=== PATIENT | female | born 1975 | race Caucasian/White ===

== ENCOUNTER 2018-01-15 15:15 | Emergency (ER) | payer OTHER ==
[2018-01-15] MEDS ORDERED: PANTOPRAZOLE 40 MG INJ ONE (16:01)
[2018-01-15] MEDS ORDERED: MORPHINE 4 MG/ML SYR ONE (16:01)
[2018-01-15] MEDS ORDERED: ONDANSETRON 4 MG/2 ML VIAL ONE (16:01)
[2018-01-15] MEDS ORDERED: NA CHLORIDE 0.9% 2,000 ML ONE (16:02)
[2018-01-15 16:25] LABS: Absolute Lymphocytes (CBC) 2.2 K/uL (0.7-4.9); Absolute Monocytes 0.4 K/uL (0.1-1.3); Absolute Neutrophil 2.7 K/uL (1.8-8.0); Basophils % 1.1 % (0-1.3); Eosinophils % 3.3 % (0-4.4); Hematocrit 41.5 % (36.0-45.0); Lymphocytes % 40.3 % (15.3-44.8); MCH 30.8 pg (27.0-35.0); MCV 90.3 fL (80-100); MPV 9.9 fL (7.6-11.3); Monocytes % 6.7 % (3.3-12.3)
[2018-01-15 16:34] LABS: Protime INR 1.09
[2018-01-15 16:41] LABS: Albumin 3.7 g/dL (3.4-5.0); Bilirubin Direct 0.1 mg/dL (0-0.2); Bilirubin Total 0.5 mg/dL (0.2-1.0); Potassium 4.1 mmol/L (3.5-5.1); Protein, Total 7.4 g/dL (6.4-8.2)
[2018-01-15] MEDS ORDERED: FENTANYL CITR 100 MCG/2 ML ONE (17:03)
[2018-01-15 17:04] LABS: Urine Bacteria <20 /HPF (<20); Urine Culture Reflex Order NOT NEEDED; Urine RBC <5 /HPF (NONE SEEN)
[2018-01-15 17:05] LABS: Urine Mucus 2+ /HPF (NONE SEEN)
[2018-01-15 19:00] LABS: Urine Blood NEGATIVE (NEG); Urine Glucose NEGATIVE (NEG); Urine Protein NEGATIVE (NEG); Urine Specific Gravity 1.025 (1.005-1.030); Urine pH 5.5 (5.0-7.0)
--- NOTE | 2018-01-15 19:33 | RAD REPORT ---
EXAM DESCRIPTION: CT - Abdomen Pelvis W Contrast - 01/15/2018 6:22 pm CLINICAL HISTORY: upper abdominal pain COMPARISON: Abdomen Pelvis W Contrast dated 01/28/2017; TECHNIQUE: Computed axial tomography of the abdomen and pelvis was obtained. 100 cc Isovue-300 is ad ministered intravenously. Oral contrast was given. All CT scans are performed using dose optimization technique as appropriate and may include automated exposure control or mA/KV adjustment according to patient size. FINDINGS: A biliary stent has been placed. Biliary tree is normal caliber containing air. The liver, spleen, pancreas, adrenals and left kidney appear unremarkable. 1 millimeter nonobstructin g right renal calculus is present There is no evidence of diverticulitis. The gallbladder has been removed Hysterectomy has been performed. An adnexal mass is not seen A tiny umbilical hernia is noted IMPRESSION: 1 millimeter nonobstructing right renal calculus
[2018-01-15] MEDS ORDERED: LIDOCAINE VISCOUS 2% SOLN 15 ML UDC ONE (19:52)
[2018-01-15] MEDS ORDERED: MAGNES/ALUMIN/SIMET 30ML UCUP ONE (19:54)
--- NOTE | 2018-01-15 20:34 | ER ---
Nurse's Notes [facility] Name: Lavern Acosta Age: 42 yrs Sex: Female : 1975 Arrival Date: 01/15/2018 Time: 15:18 Bed 17 Private MD: Ziggy Daly Diagnosis: Upper abdominal pain, unspecified;Nausea Presentation: 01/15 15:20 Presenting complaint: Patient states: She had an ERCP done yesterday by dania Sanches1 shortly after she got home she started having abdominal pain. Reports she has been unable to eat or drink anything without severe pain since she got home. Reports nausea. Denies vomiting, diarrhea. Transition of care: patient was not received from another setting of care. Onset of symptoms was January 14, 2018. Risk Assessment: Do you want to hurt yourself or someone else? Patient reports no desire to harm self or others. Initial Sepsis Screen: Does the patient meet any 2 criteria? No. Patient's initial sepsis screen is negative. Does the patient have a suspected source of infection? No. Patient's initial sepsis screen is negative. Care prior to arrival: None. 15:20 Method Of Arrival: Ambulatory aj1 15:20 Acuity: YOU 3 aj1 Triage Assessment: 15:26 General: Appears in no apparent distress. uncomfortable, Behavior is calm, cooperative, aj1 appropriate for age. Pain: Complains of pain in right upper quadrant Pain currently is 2 out of 10 on a pain scale. at worst was 10 out of 10 on a pain scale. Neuro: Level of Consciousness is awake, alert, obeys commands, Oriented to person, place, time, situation. Cardiovascular: Patient's skin is warm and dry. Respiratory: Airway is patent Respiratory effort is even, unlabored, Respiratory pattern is regular, symmetrical. GI: Reports upper abdominal pain, nausea, Patient currently denies diarrhea, vomiting. 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 - Social history:: Smoking status: Patient/guardian denies using tobacco. - Ebola Screening: : Patient denies travel to an Ebola-affected area in the 21 days before illness onset. Screenin:48 Abuse screen: Denies threats or abuse. Nutritional screening: Has had N/V for 3 or more em days. Tuberculosis screening: No symptoms or risk factors identified. Fall Risk None identified. Assessment: 16:00 General: Appears in no apparent distress. uncomfortable, Behavior is calm, cooperative, em Denies fever. Pain: Complains of pain in right upper quadrant Pain currently is 2 out of 10 on a pain scale. Neuro: Level of Consciousness is awake, alert, obeys commands, Oriented to person, place, time, situation, Needleworker are. Cardiovascular: Capillary refill < 3 seconds Patient's skin is warm and dry. Respiratory: Airway is patent Respiratory effort is even, unlabored, Respiratory pattern is regular, symmetrical. GI: Abdomen is flat, Bowel sounds present X 4 quads. Abd is soft X 4 quads Abdomen is tender to palpation in right upper quadrant Reports nausea, vomiting. : No signs and/or symptoms were reported regarding the genitourinary system. EENT: No signs and/or symptoms were reported regarding the EENT system. Derm: Skin is intact, Skin is pink, warm \T\ dry. Musculoskeletal: Range of motion: intact in all extremities. 17:00 Reassessment: Patient appears in no apparent distress at this time. Patient and/or em family updated on plan of care and expected duration. Pain level reassessed. pt reports medication did not help, GUERO Kirk notified, new medication orders received. 18:06 Reassessment: Patient appears in no apparent distress at this time. Patient and/or em family updated on plan of care and expected duration. Pain level reassessed. Patient is alert, oriented x 3, equal unlabored respirations, skin warm/dry/pink. rates pain 5/10, pending CT Patient states feeling better. 18:15 Reassessment: Patient appears in no apparent distress at this time. Patient and/or em family updated on plan of care and expected duration. Pain level reassessed. pt wheeled to CT via wheelchair. 19:09 Reassessment: Patient appears in no apparent distress at this time. Patient and/or em family updated on plan of care and expected duration. Pain level reassessed. Patient is alert, oriented x 3, equal unlabored respirations, skin warm/dry/pink. Patient states feeling better. Patient states symptoms have improved. 19:13 Reassessment: Patient appears in no apparent distress at this time. Patient and/or jd3 family updated on plan of care and expected duration. Pain level reassessed. Patient is alert, oriented x 3, equal unlabored respirations, skin warm/dry/pink. Patient states feeling better. 20:24 Reassessment: Patient appears in no apparent distress at this time. Patient and/or jd3 family updated on plan of care and expected duration. Pain level reassessed. Patient is alert, oriented x 3, equal unlabored respirations, skin warm/dry/pink. pt tolerated PO challenge well. 20:55 Reassessment: Patient appears in no apparent distress at this time. Patient and/or jd3 family updated on plan of care and expected duration. Pain level reassessed. Patient is alert, oriented x 3, equal unlabored respirations, skin warm/dry/pink. Patient states feeling better. Vital Signs: 15:26 BP 131 / 92; Pulse 88; Resp 18; Temp 97.4; Pulse Ox 96% on R/A; Weight 68.04 kg (R); aj1 Height 5 ft. 2 in. (157.48 cm); Pain 2/10; 16:45 BP 118 / 70; Pulse 63; Resp 16; Pulse Ox 100% on R/A; Pain 7/10; iw 18:07 BP 116 / 91; Pulse 79; Resp 16; Pulse Ox 99% on R/A; Pain 5/10; em 19:12 BP 134 / 81; Pulse 69; Resp 17 S; Pulse Ox 100% on R/A; jd3 20:10 BP 124 / 67; Pulse 65; Resp 16 S; Pulse Ox 100% on R/A; jd3 15:26 Body Mass Index 27.44 (68.04 kg, 157.48 cm) aj1 ED Course: 15:18 Patient arrived in ED. mr 15:18 Ziggy Daly DO is Private Physician. mr 15:23 Triage completed. aj1 15:26 Arm band placed on Patient placed in an exam room. aj1 15:32 Reagan Hylton PA is PHCP. cp 15:32 Reagan Devlin MD is Attending Physician. cp 15:44 Victor M Espinosa LVN is Primary Nurse. em 16:15 Oral contrast given. vr 16:20 No provider procedures requiring assistance completed. Initial lab(s) drawn, by me, em sent to lab. Urine collected: clean catch specimen, clear. Inserted saline lock: 20 gauge in left antecubital area, using aseptic technique. Blood collected. 16:24 Patient has correct armband on for positive identification. Placed in gown. Bed in low em position. Call light in reach. Adult w/ patient. 18:22 CT Abd/Pelvis - W/Contrast In Process Unspecified. EDMS 19:02 IV discontinued, intact, bleeding controlled, No redness/swelling at site. Pressure em dressing applied. 20:32 Sid Taylor MD is Referral Physician. cp Administered Medications: 16:27 Drug: NS 0.9% 1000 ml Route: IV; Rate: 1 bolus; Site: left antecubital; em 19:00 Follow up: Response: No adverse reaction; IV Status: Completed infusion; infusion jd3 complete at 1900 at the start of medicaid service coordinator arrival. 16:28 Drug: morphine 2 mg Route: IVP; Site: left antecubital; iw 17:07 Follow up: Response: No adverse reaction em 16:29 Drug: Zofran 4 mg Route: IVP; Site: left antecubital; iw 17:08 Follow up: Response: No adverse reaction; Nausea is decreased em 16:29 Drug: ProTONIX 40 mg Route: IVP; Site: left antecubital; iw 17:08 Follow up: Response: No adverse reaction em 17:08 Drug: NS 0.9% 1000 ml Route: IV; Rate: 125 ml/hr; Site: left antecubital; em 20:55 Follow up: Response: No adverse reaction; IV Status: Completed infusion; IV Intake: jd3 500ml 17:09 Drug: fentaNYL (PF) 25 mcg Route: IVP; Site: left antecubital; iw 19:00 Follow up: Response: No adverse reaction jd3 19:53 Drug: GI Cocktail without - (Maalox Suspension 30 ml, Lidocaine Liquid 2 % 15 jd3 ml) Route: PO; 20:24 Follow up: Response: No adverse reaction jd3 Intake: 20:55 IV: 500ml; Total: 500ml. jd3 Outcome: 20:33 Discharge ordered by MD. cp 20:56 Discharged to home ambulatory. jd3 20:56 Condition: stable 20:56 Discharge instructions given to patient, Instructed on discharge instructions, follow up and referral plans. medication usage, Demonstrated understanding of instructions, follow-up care, medications, Prescriptions given X 2. 20:58 Patient left the ED. jd3 Signatures: Dispatcher [employer] Lona Grossman, RN RN aj1 Nini Perez mr Espinosa, Victor M, ICE SELLER ICE SELLER em Ashley Fleming RN RN iw Davis, Victoria vr Page, Corey, PA PA cp Davies, Jonathon RN RN jd3 Corrections: (The following items were deleted from the chart) 18:06 17:00 Reassessment: Patient appears in no apparent distress at this time. pt reports em medication did not help, GUERO Kirk notified, new medication orders received iw 18:07 18:06 Reassessment: Patient appears in no apparent distress at this time. Patient em and/or family updated on plan of care and expected duration. Pain level reassessed. Patient is alert, oriented x 3, equal unlabored respirations, skin warm/dry/pink. rates pain 5/10 Patient states feeling better. em 20:57 19:02 Condition: good em jd3 20:57 19:02 Discharged to home ambulatory, em jd3 20:57 19:02 Discharge instructions given to patient, Instructed on discharge instructions, jd3 follow up and referral plans. medication usage, Demonstrated understanding of instructions, follow-up care, medications, Prescriptions given X 1, em
--- NOTE | 2018-01-15 20:34 | EDPHYS ---
Physician Documentation [facility] Name: Lavern Acosta Age: 42 yrs Sex: Female : 1975 Arrival Date: 01/15/2018 Time: 15:18 Bed 17 Private MD: Ziggy Daly ED Physician Reagan Devlin HPI: 01/15 15:50 This 42 yrs old Female presents to ER via Ambulatory with complaints of cp Abdominal Pain. 15:50 The patient presents with abdominal pain in the upper abdomen. Onset: The cp symptoms/episode began/occurred yesterday. Associated signs and symptoms: Pertinent positives: nausea, Pertinent negatives: blood in stools, chest pain, constipation, diarrhea, fever, vomiting. Modifying factors: the symptoms are aggravated by drinking, food. 15:50 Patient reports having ERCP performed by DR Taylor yesterday. Pain started yesterday cp after returning home and worse when eating and drinking. 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 - Social history:: Smoking status: Patient/guardian denies using tobacco. - Ebola Screening: : Patient denies travel to an Ebola-affected area in the 21 days before illness onset. ROS: 16:00 Constitutional: Negative for body aches, chills, fever, poor PO intake. cp 16:00 Eyes: Negative for injury, pain, redness, and discharge. cp 16:00 ENT: Negative for drainage from ear(s), ear pain, sore throat, difficulty swallowing, difficulty handling secretions. 16:00 Cardiovascular: Negative for chest pain, edema, palpitations. 16:00 Respiratory: Negative for cough, shortness of breath, wheezing. 16:00 Abdomen/GI: Positive for abdominal pain, nausea, anorexia, Negative for vomiting, diarrhea, constipation, dysphagia, hematemesis, black/tarry stool, rectal bleeding. 16:00 Back: Negative for pain at rest, pain with movement, radiated pain. 16:00 : Negative for urinary symptoms, vaginal bleeding, vaginal discharge. 16:00 Skin: Negative for cellulitis, rash. 16:00 Neuro: Negative for altered mental status, headache, syncope, near syncope, weakness. 16:00 All other systems are negative. Exam: 16:05 Constitutional: The patient appears in no acute distress, alert, awake, cp non-diaphoretic, non-toxic, well developed, well nourished. 16:05 Head/Face: Normocephalic, atraumatic. cp 16:05 Eyes: Periorbital structures: appear normal, Pupils: equal, round, and reactive to light and accomodation, Extraocular movements: intact throughout, Conjunctiva: normal, no exudate, no injection, Sclera: no appreciated abnormality, Lids and lashes: appear normal, bilaterally. 16:05 ENT: External ear(s): are unremarkable, Nose: is normal, Mouth: Lips: moist, Oral mucosa: pink and intact, moist, Posterior pharynx: is normal, airway is patent, no erythema, no exudate. 16:05 Chest/axilla: Inspection: normal, Palpation: is normal, no crepitus, no tenderness. 16:05 Cardiovascular: Rate: normal, Rhythm: regular, Edema: is not appreciated, JVD: is not appreciated. 16:05 Respiratory: the patient does not display signs of respiratory distress, Respirations: normal, no use of accessory muscles, no retractions, no splinting, no tachypnea, labored breathing, is not present, Breath sounds: are clear throughout, no decreased breath sounds, no stridor, no wheezing. 16:05 Abdomen/GI: Inspection: abdomen appears normal, Bowel sounds: active, all quadrants, Palpation: soft, in all quadrants, moderate abdominal tenderness, in the epigastric area, right upper quadrant and left upper quadrant, rebound tenderness, is not appreciated, voluntary guarding, is elicited in the epigastric area, right upper quadrant and left upper quadrant. 16:05 Back: pain, is absent, ROM is normal. 16:05 Skin: cellulitis, is not appreciated, no rash present. 16:05 Neuro: Orientation: to person, place \T\ time. Mentation: lucid, able to follow commands, Cerebellar function: is grossly normal, Motor: moves all fours, strength is normal, Sensation: no obvious gross deficits. Vital Signs: 15:26 BP 131 / 92; Pulse 88; Resp 18; Temp 97.4; Pulse Ox 96% on R/A; Weight 68.04 kg (R); aj1 Height 5 ft. 2 in. (157.48 cm); Pain 2/10; 16:45 BP 118 / 70; Pulse 63; Resp 16; Pulse Ox 100% on R/A; Pain 7/10; iw 18:07 BP 116 / 91; Pulse 79; Resp 16; Pulse Ox 99% on R/A; Pain 5/10; em 19:12 BP 134 / 81; Pulse 69; Resp 17 S; Pulse Ox 100% on R/A; jd3 20:10 BP 124 / 67; Pulse 65; Resp 16 S; Pulse Ox 100% on R/A; jd3 15:26 Body Mass Index 27.44 (68.04 kg, 157.48 cm) aj1 MDM: 15:32 Patient medically screened. cp 20:31 Physician consultation: Kiesha WILSON, on-call for DR Taylor, to discuss results of labs and cp CT that returned WNL. Pain improved and patient tolerating po fluids. Will discharge to home and patient to f/u in clinic next week. 20:32 Data reviewed: vital signs, nurses notes, lab test result(s), radiologic studies, CT cp scan. 20:32 Response to treatment: the patient's symptoms have markedly improved after treatment, cp VSS. Nausea and pain improved. Will discharge to home for continued monitoring. Special discussion: Based on the patient's Hx, exam, and Dx evaluation, there is no indication for emergent surgery or inpatient Tx. It is understood by the patient/guardian that if the Sx's persist or worsen they need to return immediately for re-evaluation. 01/15 15:49 Order name: Amylase, Serum; Complete Time: 16:53 cp 01/15 15:49 Order name: Basic Metabolic Panel; Complete Time: 16:53 cp 01/15 16:53 Interpretation: Normal except: GFR 61. cp 01/15 15:49 Order name: CBC with Diff; Complete Time: 17:58 cp 01/15 19:07 Interpretation: Within normal limits. cp 01/15 15:49 Order name: Creatinine for Radiology; Complete Time: 16:53 cp 01/15 15:49 Order name: Hepatic Function; Complete Time: 16:53 cp 01/15 16:54 Interpretation: Normal except: AST 13; GLOB 3.7; A/G 1.0. cp 01/15 15:49 Order name: Lipase; Complete Time: 16:53 cp 01/15 16:54 Interpretation: Within normal limits: LIP 135. cp 01/15 15:49 Order name: Urine Microscopic Only; Complete Time: 17:58 cp 01/15 17:58 Interpretation: Normal except: SQEPI 5-10. cp 01/15 15:49 Order name: PT-INR; Complete Time: 16:53 cp 01/15 15:49 Order name: Ptt, Activated; Complete Time: 16:53 cp 01/15 16:07 Order name: Urine Dipstick--Ancillary (enter results); Complete Time: 19:07 eb 01/15 16:11 Order name: CT Abd/Pelvis - W/Contrast; Complete Time: 19:37 cp 01/15 15:49 Order name: IV Saline Lock; Complete Time: 16:27 cp 01/15 15:49 Order name: Labs collected and sent; Complete Time: 16:27 cp 01/15 15:49 Order name: Urine Dipstick-Ancillary (obtain specimen); Complete Time: 16:27 cp 01/15 19:38 Order name: PO challenge; Complete Time: 20:22 cp Administered Medications: 16:27 Drug: NS 0.9% 1000 ml Route: IV; Rate: 1 bolus; Site: left antecubital; em 19:00 Follow up: Response: No adverse reaction; IV Status: Completed infusion; infusion jd3 complete at 1900 at the start of caustic cresylate shift superintendent arrival. 16:28 Drug: morphine 2 mg Route: IVP; Site: left antecubital; iw 17:07 Follow up: Response: No adverse reaction em 16:29 Drug: Zofran 4 mg Route: IVP; Site: left antecubital; iw 17:08 Follow up: Response: No adverse reaction; Nausea is decreased em 16:29 Drug: ProTONIX 40 mg Route: IVP; Site: left antecubital; iw 17:08 Follow up: Response: No adverse reaction em 17:08 Drug: NS 0.9% 1000 ml Route: IV; Rate: 125 ml/hr; Site: left antecubital; em 20:55 Follow up: Response: No adverse reaction; IV Status: Completed infusion; IV Intake: jd3 500ml 17:09 Drug: fentaNYL (PF) 25 mcg Route: IVP; Site: left antecubital; iw 19:00 Follow up: Response: No adverse reaction jd3 19:53 Drug: GI Cocktail without - (Maalox Suspension 30 ml, Lidocaine Liquid 2 % 15 jd3 ml) Route: PO; 20:24 Follow up: Response: No adverse reaction jd3 Disposition: 01/15/18 20:33 Discharged to Home. Impression: Upper abdominal pain, unspecified, Nausea. - Condition is Stable. - Discharge Instructions: Abdominal Pain, Adult, Nausea, Adult. - Prescriptions for Zofran 4 mg Oral Tablet - take 1 tablet by ORAL route every 12 hours As needed; 20 tablet. Tramadol 50 mg Oral Tablet - take 1 tablet by ORAL route every 8 hours as needed. no driving while taking medication; 20 tablet. - Medication Reconciliation Form, Thank You Letter, Antibiotic Education, Prescription Opioid Use form. - Follow up: Sid Taylor MD; When: Thursday01-19-2018 in clinic; Reason: Recheck today's complaints. - Problem is new. - Symptoms have improved. Addendum: 01/19/2018 08:22 Co-signature as Attending Physician, Reagan Devlin MD I agree with the assessment and c ann plan of care. Signatures: Dispatcher [employer] Lona Grossman RN RN aj1 Reagan Devlin MD MD cha Munoz, Edgar, LEAFLET OR NEWSPAPER DELIVERER LEAFLET OR NEWSPAPER DELIVERER em Ashley Fleming, RN Reagan Slade PA PA cp Davies, Jonathon RN RN jd3 Corrections: (The following items were deleted from the chart) 01/15 20:34 20:33 01/15/2018 20:33 Discharged to Home. Impression: Upper abdominal pain, cp unspecified. Condition is Stable. Forms are Medication Reconciliation Form, Thank You Letter, Antibiotic Education, Prescription Opioid Use. Follow up: Colleenjuan j Taylor; When: Thursday01-19-2018 in clinic; Reason: Recheck today's complaints. Problem is new. Symptoms have improved. cp 20:58 20:34 01/15/2018 20:33 Discharged to Home. Impression: Upper abdominal pain, jd3 unspecified; Nausea. Condition is Stable. Discharge Instructions: Abdominal Pain, Adult, Nausea, Adult. Prescriptions for Tylenol-Codeine #3 300-30 mg Oral Tablet - take 2 tablets by ORAL route every 6 hours As needed; 20 tablet, Zofran 4 mg Oral Tablet - take 1 tablet by ORAL route every 12 hours As needed; 20 tablet. and Forms are Medication Reconciliation Form, Thank You Letter, Antibiotic Education, Prescription Opioid Use. Follow up: Whitleygogo Taylor; When: Thursday01-19-2018 in clinic; Reason: Recheck today's complaints. Problem is new. Symptoms have improved. cp
[2018-01-15 21:03] VITALS: TEMP 97.4
[2018-01-15 21:07] VITALS: O2SAT 100
[2018-01-15 21:08] VITALS: BP 124/67
== END 2018-01-15 20:58 | disposition home or self-care (01) ==
LOC: ER 15:15
DX: R11.0 Nausea (principal); F41.9 Anxiety disorder, unspecified; F32.9 Major depressive disorder, single episode, unspecified; Z85.3 Personal history of malignant neoplasm of breast; Z88.0 Allergy status to penicillin; Z88.1 Allergy status to other antibiotic agents; Z88.5 Allergy status to narcotic agent; Z88.6 Allergy status to analgesic agent; Z91.040 Latex allergy status; Z91.048 Other nonmedicinal substance allergy status
CPT/HCPCS: 36415; 74177; 80048; 80076; 81003; 81015; 82150; 83690; 85025; 85610; 85730; 96361; 96374; 96375; 99284; C9113; J2405; J3010; J7030; Q9967

== ENCOUNTER 2019-10-29 18:48 | Emergency (ER) | payer OTHER ==
[2019-10-29 21:48] LABS: Albumin 3.8 g/dL (3.4-5.0); Bilirubin Direct 0.1 mg/dL (0-0.2); Bilirubin Total 0.3 mg/dL (0.2-1.0); Potassium 4.5 mmol/L (3.5-5.1); Protein, Total 7.5 g/dL (6.4-8.2)
[2019-10-29 22:00] LABS: Urine Blood NEGATIVE (NEG); Urine Glucose NEGATIVE (NEG); Urine Protein NEGATIVE (NEG); Urine Specific Gravity >1.030 (1.005-1.030)
[2019-10-29] MEDS ORDERED: MORPHINE 2 MG/ML SYR ONE (22:11)
[2019-10-29] MEDS ORDERED: DICYCLOMINE HCL 10 MG CAP ONE (22:11)
[2019-10-29] MEDS ORDERED: ONDANSETRON 4 MG/2 ML VIAL ONE (22:11)
[2019-10-29] MEDS ORDERED: NA CHLORIDE 0.9% 1,000 ML ONE (22:11)
[2019-10-29 22:22] LABS: Absolute Lymphocytes (CBC) 1.7 K/uL (0.7-4.9); Basophils % 0.6 % (0-1.3); Hematocrit 38.1 % (36.0-45.0); Lymphocytes % 29.2 % (15.3-44.8); MPV 8.1 fL (7.6-11.3)
[2019-10-29] MEDS ORDERED: FENTANYL CITR 100 MCG/2 ML ONE (23:57)
--- NOTE | 2019-10-30 00:08 | ER ---
Nurse's Notes [facility] Name: Lavern Acosta Age: 43 yrs Sex: Female : 1975 Arrival Date: 10/29/2019 Time: 18:50 Bed 19 Private MD: Diagnosis: Epigastric pain Presentation: 10/28 19:08 Chief complaint: Patient states: "I have a stent in my bile duct. I am having R upper ca1 abdominal pain for over 24 hrs now. The stent is supposed to come out in July but because of everything that's going it is still in there". Reports nausea. Denies vomiting and diarrhea. Coronavirus screen: Proceed with normal triage. Patient denies a cough. Patient denies shortness of breath or difficulty breathing. Patient denies measured and/or subjective temperature greater than 100.4F prior to today's visit. Patient denies travel on a cruise ship or to a country the [facility] currently lists as an affected area. Patient denies contact with known and/or suspected case of COVID-19. Ebola Screen: Patient negative for fever greater than or equal to 101.5 degrees Fahrenheit, and additional compatible Ebola Virus Disease symptoms Patient denies exposure to infectious person. Patient denies travel to an Ebola-affected area in the 21 days before illness onset. No symptoms or risks identified at this time. Initial Sepsis Screen: Does the patient meet any 2 criteria? No. Patient's initial sepsis screen is negative. Does the patient have a suspected source of infection? No. Patient's initial sepsis screen is negative. Risk Assessment: Do you want to hurt yourself or someone else? Patient reports no desire to harm self or others. Onset of symptoms was October 29, 2019. 19:08 Method Of Arrival: Ambulatory ca1 19:08 Acuity: YOU 3 ca1 Triage Assessment: 19:13 General: Appears in no apparent distress. comfortable, Behavior is calm, cooperative, ca1 appropriate for age. Pain: Complains of pain in right upper quadrant. 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 - Social history:: Smoking status: Patient denies any tobacco usage or history of. Screenin:28 Abuse screen: Denies threats or abuse. Denies injuries from another. Nutritional mg2 screening: No deficits noted. Tuberculosis screening: No symptoms or risk factors identified. Fall Risk IV access (20 points). Assessment: 21:27 General: Appears in no apparent distress. comfortable, Behavior is calm, cooperative. mg2 Pain: Complains of pain in right upper quadrant. Neuro: Level of Consciousness is awake, alert, obeys commands, Oriented to person, place, time, situation. Cardiovascular: Capillary refill < 3 seconds Patient's skin is warm and dry. Respiratory: Airway is patent Respiratory effort is even, unlabored, Respiratory pattern is regular, symmetrical. GI: Bowel sounds present X 4 quads. Abd is soft and non tender Reports upper abdominal pain, nausea. : No signs and/or symptoms were reported regarding the genitourinary system. EENT: No signs and/or symptoms were reported regarding the EENT system. Derm: Skin is intact, is healthy with good turgor, Skin is pink, warm \\T\\ dry. normal. Musculoskeletal: Circulation, motion, and sensation intact. Capillary refill < 3 seconds. 22:30 Reassessment: Patient appears in no apparent distress at this time. Patient and/or mg2 family updated on plan of care and expected duration. Pain level reassessed. Patient is alert, oriented x 3, equal unlabored respirations, skin warm/dry/pink. 23:18 Reassessment: Patient appears in no apparent distress at this time. Patient and/or mg2 family updated on plan of care and expected duration. Pain level reassessed. Patient is alert, oriented x 3, equal unlabored respirations, skin warm/dry/pink. pain is back as verbalized by the patient. 10/29 00:50 Reassessment: Patient states feeling better. Patient states symptoms have improved. mg2 Vital Signs: 10/28 19:08 BP 129 / 91; Pulse 95; Resp 15 S; Temp 98(TE); Pulse Ox 100% on R/A; Weight 71.67 kg ca1 (R); Height 5 ft. 2 in. (157.48 cm) (R); Pain 2/10; 22:25 BP 128 / 90; Pulse 72; Resp 18; Pulse Ox 100% on R/A; mg2 23:19 BP 121 / 86; Pulse 71; Resp 18; Pulse Ox 100% on R/A; mg2 10/29 00:50 BP 128 / 77; Pulse 70; Resp 18; Temp 98.1(O); Pulse Ox 100% ; mg2 10/28 19:08 Body Mass Index 28.90 (71.67 kg, 157.48 cm) ca1 ED Course: 10/28 18:50 Patient arrived in ED. ag5 19:11 Triage completed. ca1 19:13 Arm band placed on right wrist. ca1 19:59 Jono Sandoval MD is Attending Physician. tw4 20:56 Rich Quinonez, LAURI is Primary Nurse. mg2 21:03 Reagan Hylton PA is PHCP. cp 21:27 No provider procedures requiring assistance completed. Inserted saline lock: 20 gauge mg2 in left antecubital area, using aseptic technique. Blood collected. 21:28 Patient has correct armband on for positive identification. mg2 23:18 CT Abd/Pelvis - IV Contrast Only In Process Unspecified. EDMS 10/29 00:06 Archie Mckeon MD is Referral Physician. cp 00:50 IV discontinued, intact, bleeding controlled, No redness/swelling at site. Pressure mg2 dressing applied. Administered Medications: 10/28 22:20 Drug: morphine 2 mg Route: IVP; Site: left antecubital; mg2 23:20 Follow up: Response: No adverse reaction; RASS: Alert and Calm (0) mg2 22:20 Drug: Bentyl 20 mg Route: PO; mg2 23:20 Follow up: Response: No adverse reaction mg2 22:20 Drug: Zofran (Ondansetron) 4 mg Route: IVP; Site: left antecubital; mg2 23:20 Follow up: Response: No adverse reaction mg2 22:20 Drug: NS 0.9% 1000 ml Route: IV; Rate: 1 bolus; Site: left antecubital; mg2 23:00 Follow up: Response: No adverse reaction; IV Status: Completed infusion; IV Intake: mg2 1000ml 23:55 Drug: fentaNYL (PF) 25 mcg Route: IVP; Site: left antecubital; mg2 10/29 00:50 Follow up: Response: No adverse reaction; Marked relief of symptoms; RASS: Alert and mg2 Calm (0) Intake: 10/28 23:00 IV: 1000ml; Total: 1000ml. mg2 Outcome: 10/29 00:07 Discharge ordered by . cp 00:50 Discharged to home ambulatory. mg2 00:50 Condition: stable 00:50 Discharge instructions given to patient, Instructed on discharge instructions, follow up and referral plans. medication usage, Demonstrated understanding of instructions, follow-up care, medications, Prescriptions given X 3. 00:51 Patient left the ED. mg2 Signatures: Dispatcher [employer] EDMS Reagan Hylton PA PA cp Wadley, Terrence, MD MD tw4 Rich Quinonez RN RN mg2 Megan Olguin RN RN ca1 Nilton Carrasquillo ag5
--- NOTE | 2019-10-30 00:08 | EDPHYS ---
Physician Documentation [facility] Name: Lavern Acosta Age: 43 yrs Sex: Female : 1975 Arrival Date: 10/29/2019 Time: 18:50 Bed 19 Private MD: ED Physician Jono Sandoval HPI: 10/28 21:10 This 43 yrs old Female presents to ER via Ambulatory with complaints of cp Abdominal Pain. 21:10 The patient presents with abdominal pain in the epigastric area. Onset: The cp symptoms/episode began/occurred yesterday. The symptoms do not radiate. Associated signs and symptoms: Pertinent positives: nausea, Pertinent negatives: chest pain, constipation, diarrhea, fever, vomiting. The symptoms are described as constant. The patient has experienced similar episodes in the past, multiple times, Patient reports history of pancreatic stent placement by DR Beaulieu and inability to f/u for removal of stent in July due to COVID-19 pandemic. 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 - Social history:: Smoking status: Patient denies any tobacco usage or history of. ROS: 21:15 Abdomen/GI: Positive for abdominal pain, nausea, Negative for vomiting, diarrhea, cp constipation, black/tarry stool, rectal bleeding. 21:15 Eyes: Negative for injury, pain, redness, and discharge. cp 21:15 Constitutional: Negative for body aches, fever, poor PO intake. 21:15 ENT: Negative for ear pain, sore throat, difficulty swallowing, difficulty handling secretions. 21:15 Cardiovascular: Negative for chest pain. 21:15 Respiratory: Negative for cough, shortness of breath, wheezing. 21:15 Back: Negative for pain at rest, pain with movement. 21:15 : Negative for urinary symptoms. 21:15 Neuro: Negative for headache, weakness. 21:15 All other systems are negative. Exam: 21:20 Constitutional: The patient appears in no acute distress, alert, awake, non-toxic, well cp developed, well nourished. 21:20 Head/Face: Normocephalic, atraumatic. cp 21:20 Eyes: Periorbital structures: appear normal, Conjunctiva: normal, no exudate, no injection, Sclera: no appreciated abnormality, Lids and lashes: appear normal, bilaterally. 21:20 ENT: External ear(s): are unremarkable, Nose: is normal, Mouth: Lips: moist, Oral mucosa: pink and intact, moist, Posterior pharynx: is normal, airway is patent, no erythema, no exudate. 21:20 Chest/axilla: Inspection: Palpation: is normal, no crepitus, no tenderness. 21:20 Cardiovascular: Rate: normal, Rhythm: regular. 21:20 Respiratory: the patient does not display signs of respiratory distress, Respirations: normal, no use of accessory muscles, no retractions, labored breathing, is not present. 21:20 Abdomen/GI: Inspection: abdomen appears normal, Bowel sounds: active, all quadrants, Palpation: soft, in all quadrants, mild abdominal tenderness, in the epigastric area, voluntary guarding, is not appreciated, involuntary guarding, is not appreciated. 21:20 Back: CVA tenderness, is absent. Vital Signs: 19:08 BP 129 / 91; Pulse 95; Resp 15 S; Temp 98(TE); Pulse Ox 100% on R/A; Weight 71.67 kg ca1 (R); Height 5 ft. 2 in. (157.48 cm) (R); Pain 2/10; 22:25 BP 128 / 90; Pulse 72; Resp 18; Pulse Ox 100% on R/A; mg2 23:19 BP 121 / 86; Pulse 71; Resp 18; Pulse Ox 100% on R/A; mg2 10/29 00:50 BP 128 / 77; Pulse 70; Resp 18; Temp 98.1(O); Pulse Ox 100% ; mg2 10/28 19:08 Body Mass Index 28.90 (71.67 kg, 157.48 cm) ca1 MDM: 10/28 21:10 Patient medically screened. cp 22:00 Differential diagnosis: gastritis, non-specific abd pain, pancreatitis, Pyelonephritis, cp Ureterolithiasis, urinary tract infection, choledocholithiasis. 10/29 00:05 Data reviewed: vital signs, nurses notes, lab test result(s), radiologic studies, CT cp scan, and as a result, I will discharge patient. 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 00:06 Response to treatment: the patient's symptoms have markedly improved after treatment, cp and as a result, I will discharge patient. Special discussion: Based on the patient's Hx, exam, and Dx evaluation, there is no indication for emergent surgery or inpatient Tx. It is understood by the patient/guardian that if the Sx's persist or worsen they need to return immediately for re-evaluation. 10/28 20:01 Order name: Basic Metabolic Panel; Complete Time: 21:52 [facility] 10/28 23:56 Interpretation: Normal except: CL 109; GFR 82. 10/28 20:01 Order name: CBC with Diff; Complete Time: 23:56 [facility] 10/28 23:56 Interpretation: Reviewed. 10/28 20:01 Order name: Hepatic Function; Complete Time: 21:52 [facility] 10/28 20:01 Order name: Lipase; Complete Time: 21:52 [facility] 10/28 21:56 Order name: Urine Dipstick--Ancillary (enter results); Complete Time: 23:56 [facility] 10/28 21:56 Order name: Urine --Ancillary (enter results); Complete Time: 23:56 [facility] 10/28 20:01 Order name: IV Saline Lock; Complete Time: 21:26 tw 10/28 20:01 Order name: Labs collected and sent; Complete Time: 21:26 [facility] 10/28 22:32 Order name: CT Abd/Pelvis - IV Contrast Only 10/28 21:04 Order name: Urine Dipstick-Ancillary (obtain specimen); Complete Time: 21:53 cp 10/28 21:04 Order name: Urine Test (obtain specimen); Complete Time: 21:53 cp 10/28 23:40 Order name: PO challenge; Complete Time: 00:01 cp Administered Medications: 10/28 22:20 Drug: morphine 2 mg Route: IVP; Site: left antecubital; mg2 23:20 Follow up: Response: No adverse reaction; RASS: Alert and Calm (0) mg2 22:20 Drug: Bentyl 20 mg Route: PO; mg2 23:20 Follow up: Response: No adverse reaction mg2 22:20 Drug: Zofran (Ondansetron) 4 mg Route: IVP; Site: left antecubital; mg2 23:20 Follow up: Response: No adverse reaction mg2 22:20 Drug: NS 0.9% 1000 ml Route: IV; Rate: 1 bolus; Site: left antecubital; mg2 23:00 Follow up: Response: No adverse reaction; IV Status: Completed infusion; IV Intake: mg2 1000ml 23:55 Drug: fentaNYL (PF) 25 mcg Route: IVP; Site: left antecubital; mg2 10/29 00:50 Follow up: Response: No adverse reaction; Marked relief of symptoms; RASS: Alert and mg2 Calm (0) Disposition: 10/30/19 00:07 Discharged to Home. Impression: Epigastric pain. - Condition is Stable. - Discharge Instructions: Abdominal Pain, Adult. - Prescriptions for Bentyl 20 mg Oral Tablet - take 2 tablets by ORAL route every 6 hours As needed; 30 tablet. Zofran 4 mg Oral Tablet - take 1 tablet by ORAL route every 12 hours As needed; 20 tablet. Protonix 40 mg Oral Tablet - take 1 tablet by ORAL route once daily; 30 tablet. - Medication Reconciliation Form, Thank You Letter, Antibiotic Education, Prescription Opioid Use form. - Follow up: Archie Mckeon MD; When: 1 - 2 days; Reason: Recheck today's complaints. - Problem is new. - Symptoms have improved. Addendum: 11/01/2019 07:12 Co-signature as Attending Physician, Jono Sandoval MD I agree with the assessment and t w4 plan of care. Signatures: Dispatcher [employer] EDWA Page, ReaganGUERO arriaga cp, Terrence, MD MD tw4 Rich Quinonez, RN RN mg2 Megan Olguin RN RN ca1 Corrections: (The following items were deleted from the chart) 10/29 00:51 00:07 10/30/2019 00:07 Discharged to Home. Impression: Epigastric pain. Condition is mg2 Stable. Forms are Medication Reconciliation Form, Thank You Letter, Antibiotic Education, Prescription Opioid Use. Follow up: Archie Mckeon; When: 1 - 2 days; Reason: Recheck today's complaints. Problem is new. Symptoms have improved. cp
[2019-10-30 01:15] VITALS: O2SAT 100
[2019-10-30 01:19] VITALS: BP 128/77; TEMP 98.1
--- NOTE | 2019-10-31 10:32 | RAD REPORT ---
EXAM DESCRIPTION: CT - Abdomen Pelvis W Contrast - 10/30/2019 5:40 am CLINICAL HISTORY: 43-year-old female with abdominal pain, history of breast cancer and GERD, prior h ysterectomy, appendectomy and cholecystectomy and bile duct stent TECHNIQUE: Axial CT imaging of the abdomen and pelvis was performed following the administration of intravenous contrast.. Sagittal and coronal reconstructed images were then performed. The CT stud y is performed according to ALARA (as low as reasonably achievable) or ALARA/IMAGE GENTLY, with autom atic adjustment of mA and/or kV according to patient size. Performed on: 10/29/2019 at 11:00 PM. COMPARISON: CT abdomen and pelvis performed on 01/15/2018 FINDINGS: Lung bases: The lung bases are clear. Liver: The liver is normal in size and configuration. There are a couple of tiny, stable incidental h epatic cysts. Liver attenuation is within normal limits. Spleen: The spleen is normal is size, configuration and attenuation. Gallbladder and bile duct: The gallbladder is surgically absent. There is no biliary ductal dilatat ion. A biliary stent is present along the course of the common bile duct. Pancreas: The pancreas is grossly normal in size and configuration. Adrenal Glands: The adrenal glands are normal in size and configuration. Kidneys: The kidneys are normal in size and configuration. There is no evidence of hydronephrosis. Th ere appears to be a small nonobstructing calcification in the lower pole of the right kidney. No defi nite solid or cystic renal mass lesions are identified. Stomach: The stomach is grossly normal. There is no definite hiatal hernia. Bowel: The bowel gas pattern is non specific and non obstructive. Appendix: The appendix is surgically absent. Free air: There is no evidence of free air. Free fluid: There is no evidence of free fluid. Vasculature: The aorta is normal in caliber and contour. The inferior vena cava is grossly unremarkab le. Lymphadenopathy: No pathologic lymphadenopathy is identified. Bladder: The bladder is well distended and smooth in contour. Reproductive: The uterus is surgically absent. Bones: No acute osseous abnormalities are identified. Soft tissues: There are remote postsurgical changes along the anterior abdominal wall. IMPRESSION: 1. No evidence of acute intra-abdominal or intrapelvic pathology. 2. Remote cholecystectomy, appendectomy and hysterectomy. 3. Biliary duct stent present without evidence of bile duct obstruction. 4. There appears to be a small nonobstructing calcification in the lower pole of the right kidney. 5. Several tiny incidental, grossly stable hepatic cysts. Electronically signed by: Melani Mejias DO 10/29/2019 11:34 PM CDT Due to temporary technical issues with the PACS/Fluency reporting system, reports are being signed by the in house radiologist without review as a courtesy to ensure prompt reporting. The interpreting r adiologist is fully responsible for the content of the report.
== END 2019-10-30 00:51 | disposition home or self-care (01) ==
LOC: ER 18:48
DX: R10.13 Epigastric pain (principal); F34.1 Dysthymic disorder; K21.9 Gastro-esophageal reflux disease without esophagitis; Z85.3 Personal history of malignant neoplasm of breast; Z88.0 Allergy status to penicillin; Z88.1 Allergy status to other antibiotic agents; Z88.5 Allergy status to narcotic agent; Z88.6 Allergy status to analgesic agent; Z91.040 Latex allergy status; Z91.048 Other nonmedicinal substance allergy status
CPT/HCPCS: 96361; 85025; 80048; 36415; 81025; 80076; 81003; 83690; 74177; 96375; 96374; 99284; Q9967; J3010; J2270; J7030; J2405

== ENCOUNTER 2020-10-14 07:29 | Emergency (ER) | payer OTHER ==
--- NOTE | 2020-10-14 07:59 | ER ---
Nurse's Notes [facility] Name: Lavern Acosta Age: 44 yrs Sex: Female : 1975 Arrival Date: 10/14/2020 Time: 07:33 Bed 19 Private MD: Diagnosis: Pain in right shoulder Presentation: 10/14 07:42 Chief complaint: Right shoulder pain x 5 days. Denies injury. Coronavirus screen: At iw this time, the client does not indicate any symptoms associated with coronavirus-19. Ebola Screen: No symptoms or risks identified at this time. Initial Sepsis Screen: Does the patient meet any 2 criteria? No. Patient's initial sepsis screen is negative. Does the patient have a suspected source of infection? No. Patient's initial sepsis screen is negative. Risk Assessment: Do you want to hurt yourself or someone else? Patient reports no desire to harm self or others. Onset of symptoms was October 09, 2020. 07:42 Method Of Arrival: Ambulatory iw 07:42 Acuity: YOU 4 iw Historical: - Allergies: 07:44 Aspirin; iw 07:44 Codeine; iw 07:44 Ibuprofen; iw 07:44 Keflex; iw 07:44 Latex, Natural Rubber; iw 07:44 Levaquin; iw 07:44 PENICILLINS; iw 07:44 Amoxicillin; iw - Home Meds: 07:44 Effexor 75 mg Oral daily [Active]; pantoprazole 40 mg Oral TbEC 1 tab once daily iw [Active]; - PMHx: 07:44 Anxiety; breast cancer; Depression; GERD; iw - PSHx: 07:44 Hysterectomy; mastectomy, bilateral with right side lymph node removal; Appendectomy; iw Cholecystectomy; - Immunization history:: Adult Immunizations up to date. - Social history:: Smoking status: Patient denies any tobacco usage or history of. - Family history:: not pertinent. Screenin:45 Abuse screen: Denies threats or abuse. Nutritional screening: No deficits noted. rb3 Tuberculosis screening: No symptoms or risk factors identified. Fall Risk None identified. Assessment: 07:45 General: Appears uncomfortable, Behavior is calm, cooperative. Pain: Complains of pain rb3 in right arm and anterior aspect of right shoulder Pain currently is 9 out of 10 on a pain scale. Pain began x 5 days. Neuro: Level of Consciousness is awake, alert, obeys commands, Oriented to person, place, time, situation. Cardiovascular: Capillary refill < 3 seconds Patient's skin is warm and dry. Respiratory: Airway is patent Respiratory effort is even, unlabored, Respiratory pattern is regular, symmetrical. GI: No signs and/or symptoms were reported involving the gastrointestinal system. : No signs and/or symptoms were reported regarding the genitourinary system. Musculoskeletal: Reports pain in anterior aspect of right shoulder and right arm. 08:30 Reassessment: Discharge pending due to awaiting x-ray results. rb3 08:44 Reassessment: Patient appears in no apparent distress at this time. Patient and/or rb3 family updated on plan of care and expected duration. Pain level reassessed. Patient is alert, oriented x 3, equal unlabored respirations, skin warm/dry/pink. Vital Signs: 07:42 BP 131 / 85; Pulse 86; Resp 16; Temp 97.3; Pulse Ox 98% on R/A; Weight 68.04 kg; Height iw 5 ft. 1 in. (154.94 cm); Pain 7/10; 08:30 BP 127 / 79; Pulse 84; Resp 16; Pulse Ox 99% ; rb3 07:42 Body Mass Index 28.34 (68.04 kg, 154.94 cm) iw ED Course: 07:33 Patient arrived in ED. am4 07:43 Reagan Devlin MD is Attending Physician. lianet 07:43 Triage completed. iw 07:44 Arm band placed on. iw 07:45 Patient has correct armband on for positive identification. Bed in low position. Call rb3 light in reach. Side rails up X 1. Pulse ox on. NIBP on. 07:55 Carlo Sherwood MD is Referral Physician. lianet 08:07 Shoulder Right (2 View) XRAY In Process Unspecified. EDMS 08:27 Lizz Valdez, RN is Primary Nurse. rb3 Administered Medications: 08:30 Drug: Tennyson (HYDROcodone-acetaminophen) 10 mg-325 mg 1 tabs Route: PO; rb3 09:00 Follow up: Response: No adverse reaction; Pain is decreased rb3 Outcome: 07:59 Discharge ordered by . lianet 09:15 Patient left the ED. eb Signatures: Dispatcher [employer] EDMS Reagan Devlin MD MD cha Williams, Ashley, RN RN iw Anaid Palomares Rebecca, RN RN rb3 Mihaela Adam
--- NOTE | 2020-10-14 07:59 | EDPHYS ---
Physician Documentation [facility] Name: Lavern Acosta Age: 44 yrs Sex: Female : 1975 Arrival Date: 10/14/2020 Time: 07:33 Bed 19 Private MD: ED Physician Reagan Devlin HPI: 10/14 07:51 This 44 yrs old Female presents to ER via Ambulatory with complaints of Arm lianet Pain. 07:51 The patient or guardian complains of decreased range of motion, pain, that is acute. lianet The complaints affect the anterior aspect of right shoulder and posterior aspect of right shoulder. Context: The problem was sustained at an unknown location, resulted from unknown cause. Onset: The symptoms/episode began/occurred 3 day(s) ago. Treatment prior to arrival includes: sling, splinting the affected extremity. Modifying factors: The symptoms are alleviated by remaining still, the symptoms are aggravated by movement, bending arm. Associated signs and symptoms: The patient has no apparent associated signs or symptoms. Severity of symptoms: At their worst the symptoms were moderate, in the emergency department the symptoms are unchanged. The patient has not experienced similar symptoms in the past. Historical: - Allergies: 07:44 Aspirin; iw 07:44 Codeine; iw 07:44 Ibuprofen; iw 07:44 Keflex; iw 07:44 Latex, Natural Rubber; iw 07:44 Levaquin; iw 07:44 PENICILLINS; iw 07:44 Amoxicillin; iw - Home Meds: 07:44 Effexor 75 mg Oral daily [Active]; pantoprazole 40 mg Oral TbEC 1 tab once daily iw [Active]; - PMHx: 07:44 Anxiety; breast cancer; Depression; GERD; iw - PSHx: 07:44 Hysterectomy; mastectomy, bilateral with right side lymph node removal; Appendectomy; iw Cholecystectomy; - Immunization history:: Adult Immunizations up to date. - Social history:: Smoking status: Patient denies any tobacco usage or history of. - Family history:: not pertinent. ROS: 07:51 Constitutional: Negative for fever, chills, and weight loss, Eyes: Negative for injury, lianet pain, redness, and discharge, ENT: Negative for injury, pain, and discharge, Neck: Negative for injury, pain, and swelling, Cardiovascular: Negative for chest pain, palpitations, and edema, Respiratory: Negative for shortness of breath, cough, wheezing, and pleuritic chest pain, Abdomen/GI: Negative for abdominal pain, nausea, vomiting, diarrhea, and constipation, Back: Negative for injury and pain, : Negative for injury, bleeding, discharge, and swelling, Skin: Negative for injury, rash, and discoloration, Neuro: Negative for headache, weakness, numbness, tingling, and seizure, Psych: Negative for depression, anxiety, suicide ideation, homicidal ideation, and hallucinations, Allergy/Immunology: Negative for hives, rash, and allergies, Endocrine: Negative for neck swelling, polydipsia, polyuria, polyphagia, and marked weight changes, Hematologic/Lymphatic: Negative for swollen nodes, abnormal bleeding, and unusual bruising. 07:51 MS/extremity: Positive for decreased range of motion, tenderness, of the anterior aspect of right shoulder and posterior aspect of right shoulder. Exam: 07:51 Constitutional: This is a well developed, well nourished patient who is awake, alert, lianet and in no acute distress. Head/Face: Normocephalic, atraumatic. Eyes: Pupils equal round and reactive to light, extra-ocular motions intact. Lids and lashes normal. Conjunctiva and sclera are non-icteric and not injected. Cornea within normal limits. Periorbital areas with no swelling, redness, or edema. ENT: Nares patent. No nasal discharge, no septal abnormalities noted. Tympanic membranes are normal and external auditory canals are clear. Oropharynx with no redness, swelling, or masses, exudates, or evidence of obstruction, uvula midline. Mucous membranes moist. Neck: Trachea midline, no thyromegaly or masses palpated, and no cervical lymphadenopathy. Supple, full range of motion without nuchal rigidity, or vertebral point tenderness. No Meningismus. Chest/axilla: Normal chest wall appearance and motion. Nontender with no deformity. No lesions are appreciated. Cardiovascular: Regular rate and rhythm with a normal S1 and S2. No gallops, murmurs, or rubs. Normal PMI, no JVD. No pulse deficits. Respiratory: Lungs have equal breath sounds bilaterally, clear to auscultation and percussion. No rales, rhonchi or wheezes noted. No increased work of breathing, no retractions or nasal flaring. Abdomen/GI: Soft, non-tender, with normal bowel sounds. No distension or tympany. No guarding or rebound. No evidence of tenderness throughout. Back: No spinal tenderness. No costovertebral tenderness. Full range of motion. Skin: Warm, dry with normal turgor. Normal color with no rashes, no lesions, and no evidence of cellulitis. Neuro: Awake and alert, GCS 15, oriented to person, place, time, and situation. Cranial nerves II-XII grossly intact. Motor strength 5/5 in all extremities. Sensory grossly intact. Cerebellar exam normal. Normal gait. Psych: Awake, alert, with orientation to person, place and time. Behavior, mood, and affect are within normal limits. 07:51 Musculoskeletal/extremity: ROM: limited active range of motion, limited passive range of motion, limited active range of motion due to pain, limited passive range of motion due to pain, Circulation is intact in all extremities. Sensation intact. Compartment Syndrome exam of affected extremity: is normal. DVT Exam: no swelling, pain, tenderness. Vital Signs: 07:42 BP 131 / 85; Pulse 86; Resp 16; Temp 97.3; Pulse Ox 98% on R/A; Weight 68.04 kg; Height iw 5 ft. 1 in. (154.94 cm); Pain 7/10; 08:30 BP 127 / 79; Pulse 84; Resp 16; Pulse Ox 99% ; rb3 07:42 Body Mass Index 28.34 (68.04 kg, 154.94 cm) iw MDM: 07:43 Patient medically screened. [facility] 10/14 07:51 Order name: Shoulder Right (2 View) XRAY [facility] 10/14 07:51 Order name: Sling; Complete Time: 08:48 [facility] 10/14 08:06 Order name: Ice pack; Complete Time: 08:48 [facility] Administered Medications: 08:30 Drug: [place] (HYDROcodone-acetaminophen) 10 mg-325 mg 1 tabs Route: PO; rb3 09:00 Follow up: Response: No adverse reaction; Pain is decreased rb3 Disposition: 10/14/20 07:59 Discharged to Home. Impression: Pain in right shoulder. - Condition is Stable. - Discharge Instructions: Joint Pain, Musculoskeletal Pain, Shoulder Pain, Cryotherapy, [id number], Shoulder Pain, [id number], Cryotherapy. - Prescriptions for Tramadol 50 mg Oral Tablet - take 1 tablet by ORAL route every 8 hours as needed; 20 tablet. Medrol (Severiano) 4 mg Oral Tablets, Dose Pack - take 1 tablet by ORAL route as directed - follow package instructions; 1 packet. Cyclobenzaprine 5 mg Oral Tablet - take 1 tablet by ORAL route 3 times per day As needed; 15 tablet. - Medication Reconciliation Form, Thank You Letter, Antibiotic Education, Prescription Opioid Use, Work release form form. - Follow up: Private Physician; When: 2 - 3 days; Reason: Recheck today's complaints, Continuance of care, Re-evaluation by your physician. Follow up: Carlo Sherwood MD; When: 2 - 3 days; Reason: Recheck today's complaints, Continuance of care, Re-evaluation by your physician. - Problem is new. - Symptoms have improved. Signatures: Dispatcher [employer] Reagan Avendano MD MD cha Williams, Irene, LAURI RN Anaid Hawley Rebecca, RN RN rb3 Corrections: (The following items were deleted from the chart) 09:15 07:59 10/14/2020 07:59 Discharged to Home. Impression: Pain in right shoulder. eb Condition is Stable. Forms are Medication Reconciliation Form, Thank You Letter, Antibiotic Education, Prescription Opioid Use. Follow up: Private Physician; When: 2 - 3 days; Reason: Recheck today's complaints, Continuance of care, Re-evaluation by your physician. Follow up: Carlo Sherwood; When: 2 - 3 days; Reason: Recheck today's complaints, Continuance of care, Re-evaluation by your physician. Problem is new. Symptoms have improved. lianet
[2020-10-14] MEDS ORDERED: HYDROCODONE/APAP 10/325 TAB ONE (08:51)
--- NOTE | 2020-10-14 09:18 | RAD REPORT ---
EXAM DESCRIPTION: Shoulder Right 2 View - 10/14/2020 8:07 am CLINICAL HISTORY: PAIN, no known precipitating event COMPARISON: Shoulder Right 2 View dated 02/17/2018 TECHNIQUE: Internal and external rotation views of the right shoulder were obtained. FINDINGS: There is no fracture or dislocation. No AC separation or spurring. Lateral downward tilti ng of the acromion is present. Acromial humeral joint space is slightly narrowed. No acute or suspici ous findings. IMPRESSION: Negative two-view right shoulder examination for acute finding. Concerns for rotator cuff tear or other internal derangement can be addressed with MR imaging.
[2020-10-14 09:47] VITALS: BP 131/85; TEMP 97.3; O2SAT 98
== END 2020-10-14 09:15 | disposition home or self-care (01) ==
LOC: ER 07:29
DX: M25.511 Pain in right shoulder (principal); F41.8 Other specified anxiety disorders; Z85.3 Personal history of malignant neoplasm of breast; Z88.0 Allergy status to penicillin; Z88.1 Allergy status to other antibiotic agents; Z88.6 Allergy status to analgesic agent; Z88.8 Allergy status to other drugs, medicaments and biological substances; Z90.13 Acquired absence of bilateral breasts and nipples; Z91.040 Latex allergy status; Z91.048 Other nonmedicinal substance allergy status
CPT/HCPCS: 99283

== ENCOUNTER 2023-04-02 17:25 | Emergency (ER) | payer OTHER ==
--- OUTSIDE RECORDS SUMMARY | 2023-04-02 17:37 | XMS REPORT | Continuity of Care Document ---
:1975 Author Organization [facility] t Address [address] [place] [address] Care Team Providers Name Role Phone ENEDINA PENNINGTON Primary Care Physician Unavailable CAN OHARA Attending Clinician Unavailable KEYON AU Attending Clinician Unavailable ELEANOR PIERSON Attending Clinician Unavailable LAMINE SAUNDERS Attending Clinician Unavailable LAB90 Attending Clinician Unavailable MADELINE SOUZA Attending Clinician Unavailable CATARINA GUZMAN Attending Clinician Unavailable LISA SU Attending Clinician Unavailable Radiology Attending Clinician Unavailable RADIOLOGY Attending Clinician Unavailable Catarina Guzman MD Attending Clinician [phone] MICHELLE FARRIS Admitting Clinician Unavailable Payers Payer Name Policy Type Policy Number Effective Date Expiration Date S daily CIGNA OPEN [id number] 2016 00:00:00 ACCESS/OPEN ACCESS PLUS CIGNA-CIGNA/PPO 2 [id number] 2021 00:00:00 Problems Condition Condition Condition Status Onset Resolution Last Treating Co mments Source Name Details Category Date Date Treatment Clinician Date Acute pain Acute pain Disease Active 2022-05 K elsey of left of left 0-09 Seybold shoulder shoulder 00:00: - 00 Externa l Neck pain Neck pain Disease Active 2022-05 Renato sey 0-09 Seybold 00:00: - 00 Externa l DDD DDD Disease Active 2022-05 Edita (degenerat (degenerat 0-09 Se ybold edison disc edison disc 00:00: - disease), disease), 00 Exte rna cervical cervical l Anxiety Anxiety Disease Active Edita 908 Seybold 00:00: - 00 Externa l Hypothyroi Hypothyroi Disease Active K timothy dism dism 9 Seybold 00:00: - 00 Externa l Reflux Reflux Disease Active Edita esophagiti esophagiti 01-23 Se ybold s s 00:00: - 00 Externa l Prehyperte Prehyperte Disease Active K timothy nsion nsion 413 Seybold 00:00: - 00 Externa l Duodenal Duodenal Disease Active Renatose y ulcer ulcer 413 Seybold 00:00: - 00 Externa l No known No known Disease Unive rs active active ity of problems problems [facility] Allergies, Adverse Reactions, Alerts Allergy Allergy Status Severity Reaction(s) Onset Inactive Treating Comm ents Source Name Type Date Date Clinician Aspirin Propensi Active 2021-05 Edita ty to 2-12 Seybold adverse 00:00: - reaction 00 Externa s l Latex Propensi Active Rash Univers ty to 4-19 ity of adverse 00:00: [place] reaction [facility] Levoflox Propensi Active Rash Univer s acin ty to 4-19 ity of adverse 00:00: [place] reaction 00 [facility] AMOXICIL DRUG Active Rash Univers JOHN INGREDI 4-19 ity of 00:00: [place] 00 [facility] ASPIRIN DRUG Active N/V Univers INGREDI 4-19 ity of 00:00: [place] 00 [facility] IBUPROFE DRUG Active Rash Univers N INGREDI 4-19 ity of 00:00: [place] 00 [facility] CEPHALEX DRUG Active Rash Univers IN INGREDI 419 ity of 00:00: [place] 00 [facility] LATEX DRUG Active Rash Univers INGREDI 4-19 ity of 00:00: [place] 00 [facility] LEVOFLOX DRUG Active Rash Univers ACIN INGREDI 09-03 ity of 00:00: [place] 00 [facility] Amoxicil Propensi Active Rash Univer s john ty to 09-03 ity of adverse 00:00: [place] reaction 00 [facility] Aspirin Propensi Active Nausea Univers ty to and/or 09-03 ity of adverse Vomiting 00:00: [place] reaction Medical s [facility] Ibuprofe Propensi Active Rash Univer s n ty to 09-03 ity of adverse 00:00: [place] reaction 00 [facility] Cephalex Propensi Active Rash Univer s in ty to 09-03 ity of adverse 00:00: [place] reaction [facility] s [facility] Calcium Propensi Active Nausea and Renato dawn Acetylsa ty to Vomiting 09-03 Seybol d licylate adverse 00:00: - reaction 00 Externa s l Cephalex Propensi Active Rash Edita in ty to 09-03 Seybold adverse 00:00: - reaction 00 Externa s l Latex Propensi Active Rash Edita ty to 09-03 Seybold adverse 00:00: - reaction 00 Externa s l Social History Social Habit Start Date Stop Date Quantity Comments Source Gender identity 2021-08-28 Identifies as Edita Valdez 14:05:47 female gender - External (finding) Sexual orientation 2021-08-28 Heterosexual Jenise Valdez 14:05:47 (finding) - External History of tobacco Edita Valdez use - External Exposure to Not sure Edita hussein SARS-CoV-2 (event) Alcohol intake 2023-03-11 2023-03-11 Lifetime Edita alfredo 00:00:00 00:00:00 non-drinker - External (finding) History of Social 2023-01-23 2023-01-23 Edita Valdez function 00:00:00 00:00:00 - External Sex [birth year] F Edita solano 00:00:00 00:00:00 - External Smoking Status Start Date Stop Date Source Unknown if ever smoked [facility] Smokes tobacco daily 2023-01-23 00:00:00 Edita Seybold - External Medications Ordered Filled Start Stop Current Ordering Indication Dosage Frequency Signature Comments Components Source Medication Medication Date Date Medication? Clinician (SIG) Name Name Tizanidine 2022-05 Yes [id number] 2mg QD Take 1 K elsey HCl 2 MG 0-09 tablet (2 Seybol d oral Tablet 00:00: mg total) - 00 by mouth Externa nightly as l needed for muscle spasms. Tizanidine 2022-05 Yes [id number] 2mg QD Take 1 K elsey HCl 2 MG 0-09 tablet (2 Seybol d oral Tablet 00:00: mg total) - 00 by mouth Externa nightly as l needed for muscle spasms. Tizanidine 2022- No [id number] 2mg Q.[id number] Take 1 Edita HCl 2 MG 02-10 [id number] tablet (2 Seybold oral Tablet 00:00: 00:00 3D mg total) - 00 :00 by mouth Externa every 8 l hours as needed for muscle spasms. predniSONE 2022- No [id number] 5mg Take 0.5 Edita (DELTASONE) 02-10 [id number] tablets (5 Seybold 10 MG oral 00:00: 00:00 mg total) - tablet 00 :00 by mouth 2 Externa times l daily. Venlafaxine Yes 75mg Take 75 mg Edita HCl 75 MG 01-23 by mouth Seybol d oral Tablet 15:00: daily - 12 Externa l Pantoprazol Yes [id number] 40mg Take 1 Edita e Sodium 40 8-11 tablet (40 Se ybold MG oral 00:00: mg total) - Tablet 00 by mouth Externa Delayed daily l Response hydrOXYzine Yes [id number] 10mg Q.[id number] TAKE 1 Edita HCl 10 MG 10-24 [id number] TABLET (10 Seybold oral Tablet 00:00: 3D MG TOTAL) - 00 BY MOUTH 3 Externa TIMES l DAILY NEEDED FOR ITCHING OR ANXIETY Benzonatate Yes [id number] 100mg Q.[id number] Take 1 Edita (Tessalon 2-23 [id number] capsule S eybold Perles) 100 00:00: 3D (100 mg - MG oral 00 total) by Externa Capsule mouth 3 l times daily as needed for cough Benzonatate 2022- No [id number] 100mg Q.[id number] Take 1 Edita (Tessalon 2-23 -08 [id number] capsule Seybold Perles) 100 00:00: 00:00 3D (100 mg - MG oral 00 :00 total) by Externa Capsule mouth 3 l times daily as needed for cough Pantoprazol Yes [id number] TAKE 1 Edita e Sodium 40 2-06 TABLET BY Sey bold MG oral 00:00: MOUTH - Tablet 00 EVERY DAY Externa Delayed l Response Ondansetron Yes [id number] 4mg Q.[id number] Take 1 Edita HCl 4 MG 1-20 [id number] tablet (4 Seybold oral Tablet 00:00: 3D mg total) - 00 by mouth Externa every 8 l hours as needed for nausea Ondansetron Yes [id number] 4mg Q.[id number] Take 1 Edita HCl 4 MG 1-20 [id number] tablet (4 Seybold oral Tablet 00:00: 3D mg total) - 00 by mouth Externa every 8 l hours as needed for nausea Venlafaxine Yes 75mg Take 75 mg Edita HCl 75 MG 1-17 by mouth Seybol d oral Tablet 14:10: daily - 32 Externa l Venlafaxine 0 Yes 75mg Take 75 mg Edita HCl 75 MG 1-17 by mouth Seybol d oral Tablet 14:10: daily - 32 Externa l PAXLOVID 0 2022- No [id number] Take two Edita STANDARD 1-17 - 150 mg Seybold (30) 00:00: 05:59 nirmatrelv - (300/100) 00 :00 ir (pink) Exter na Therapy tablets l Pack with one 100 mg ritonavir (white) tablet by mouth two times daily for 5 days Lansoprazol 0 Yes 30mg Take 30 mg Edita e 30 MG 1-09 by mouth Seybold oral 00:00: every 12 - Delayed 00 hours Externa Release l Capsule Pseudoeph-B 2021-05 Yes [id number] 10mL Q.25D Take 10 mL Edita romphen-DM 2-12 by mouth 4 Sey bold (Bromfed 00:00: times - DM) 00 daily as Exte rna MG/5ML oral needed l Syrup Pseudoeph-B 2021-05 Yes [id number] 10mL Q.25D Take 10 mL Edita romphen-DM 2-12 by mouth 4 Sey bold (Bromfed 00:00: times - DM) 00 daily as Exte rna MG/5ML oral needed l Syrup Pseudoeph-B 2021-05 Yes [id number] 10mL Q.25D Take 10 mL Edita romphen-DM 2-12 by mouth 4 Sey bold (Bromfed 00:00: times - DM) 00 daily as Exte rna MG/5ML oral needed l Syrup Pseudoeph-B 2021-05- No [id number] 10mL Q.25D Take 10 mL Edita romphen-DM 2-12 -08 by mouth 4 Se ybold (Bromfed 00:00: 00:00 times - DM) 00 :00 daily as Exte rna MG/5ML oral needed l Syrup Azithromyci 2021-05- No [id number] Take 2 Edita n 250 MG 2-12 12-18 tablets by Seyb old oral Tablet 00:00: 05:59 mouth on - 00 :00 day 1 then Externa 1 tablet l by mouth daily for 4 days thereafter . Levothyroxi 2021-05 Yes 50ug Take 1 Jenise ey ne Sodium 2-05 tablet (50 Seyb old 50 MCG oral 00:00: mcg total) - Tablet 00 by mouth Externa daily l Levothyroxi 2021-05 Yes 50ug Take 1 Jenise ey ne Sodium 2-05 tablet (50 Seyb old 50 MCG oral 00:00: mcg total) - Tablet 00 by mouth Externa daily l Levothyroxi 2021-05 Yes 50ug Take 1 Jenise ey ne Sodium 2-05 tablet (50 Seyb old 50 MCG oral 00:00: mcg total) - Tablet 00 by mouth Externa daily l Levothyroxi 2021-05 Yes 50ug Take 1 Jenise ey ne Sodium 2-05 tablet (50 Seyb old 50 MCG oral 00:00: mcg total) - Tablet 00 by mouth Externa daily l Levothyroxi 2021-05- No 50ug Take 1 Renato sey ne Sodium 2-05 10-09 tablet (50 Sey bold 50 MCG oral 00:00: 00:00 mcg total) - Tablet 00 :00 by mouth Externa daily l Eucrisa 2 % 2021-05 Yes APPLY THIN Edita apply 1-22 COAT TO Seybold externally 00:00: AFFECTED - Ointment 00 AREA TWICE Exter na A DAY l Eucrisa 2 % 2021-05 Yes APPLY THIN Edita apply 1-22 COAT TO Seybold externally 00:00: AFFECTED - Ointment 00 AREA TWICE Exter na A DAY l Eucrisa 2 % 2021-05 Yes APPLY THIN Edita apply 1-22 COAT TO Seybold externally 00:00: AFFECTED - Ointment 00 AREA TWICE Exter na A DAY l Triamcinolo 2021-05 Yes APPLY THIN Edita ne 1-18 COAT TO Seybold Acetonide 00:00: AFFECTED - 0.1 % apply 00 AREA TWICE Ex terna externally A DAY l Cream Triamcinolo 2021-05 Yes APPLY THIN Edita ne 1-18 COAT TO Seybold Acetonide 00:00: AFFECTED - 0.1 % apply 00 AREA TWICE Ex terna externally A DAY l Cream Triamcinolo 2021-05 Yes APPLY THIN Edita ne 1-18 COAT TO Seybold Acetonide 00:00: AFFECTED - 0.1 % apply 00 AREA TWICE Ex terna externally A DAY l Cream hydrOXYzine 2021-05 Yes [id number] 10mg Q.[id number] TAKE 1 Edita HCl 10 MG 1-17 [id number] TABLET (10 Seybold oral Tablet 00:00: 3D MG TOTAL) - 00 BY MOUTH 3 Externa TIMES l DAILY NEEDED FOR ITCHING OR ANXIETY hydrOXYzine 2021-05 Yes [id number] 10mg Q.[id number] TAKE 1 Edita HCl 10 MG 1-17 [id number] TABLET (10 Seybold oral Tablet 00:00: 3D MG TOTAL) - 00 BY MOUTH 3 Externa TIMES l DAILY NEEDED FOR ITCHING OR ANXIETY hydrOXYzine 2021-05 Yes [id number] 10mg Q.[id number] TAKE 1 Edita HCl 10 MG 1-17 [id number] TABLET (10 Seybold oral Tablet 00:00: 3D MG TOTAL) - 00 BY MOUTH 3 Externa TIMES l DAILY NEEDED FOR ITCHING OR ANXIETY Sodium 2021-05 Yes DISPENSE A Kelse y Fluoride 1-10 PEA SIZE Seybold 5000 PPM 00:00: AMOUNT ON - 1.1 % 00 TOOTHBRUSH Externa dental . BRUSH l Paste ONCE DAILY. DO NOT EAT OR DRINK FOR 30 MINUTES. Sodium 2021-05 Yes DISPENSE A Kelse y Fluoride 1-10 PEA SIZE Seybold 5000 PPM 00:00: AMOUNT ON - 1.1 % 00 TOOTHBRUSH Externa dental . BRUSH l Paste ONCE DAILY. DO NOT EAT OR DRINK FOR 30 MINUTES. Sodium 2021-05 Yes DISPENSE A Kelse y Fluoride 1-10 PEA SIZE Seybold 5000 PPM 00:00: AMOUNT ON - 1.1 % 00 TOOTHBRUSH Externa dental . BRUSH l Paste ONCE DAILY. DO NOT EAT OR DRINK FOR 30 MINUTES. Ursodiol 2021-05- No 500mg Take 500 Renato sey 500 MG oral 0-26 10-26 mg by Seybol d Tablet 08:49: 00:00 mouth - 49 :00 daily Externa l Venlafaxine 2021-05 Yes 75mg Take 75 mg Edita HCl 75 MG 0-26 by mouth Seybol d oral Tablet 08:45: daily - 14 Externa l Venlafaxine 2021-05 Yes 75mg Take 75 mg Edita HCl 75 MG 0-26 by mouth Seybol d oral Tablet 08:45: daily - 14 Externa l Gabapentin 2021-05 Yes [id number] 100mg Take 1 Edita 100 MG oral 0-26 capsule Seybo ld Capsule 00:00: (100 mg - 00 total) by Externa mouth 3 l times daily Gabapentin 2021-05 Yes [id number] 100mg Take 1 Edita 100 MG oral 0-26 capsule Seybo ld Capsule 00:00: (100 mg - 00 total) by Externa mouth 3 l times daily Gabapentin 2021-05 Yes [id number] 100mg Take 1 Edita 100 MG oral 0-26 capsule Seybo ld Capsule 00:00: (100 mg - 00 total) by Externa mouth 3 l times daily hydrOXYzine 2021-05 Yes [id number] 10mg Q.[id number] Take 1 Edita HCl 10 MG 0-26 [id number] tablet (10 Seybold oral Tablet 00:00: 3D mg total) - 00 by mouth 3 Externa times l daily as needed for itching or anxiety methylPREDN 2021-05 Yes [id number] 1{dandre} Take 1 dandre Edita ISolone 4 0-26 by mouth Seybol d MG oral 00:00: See Admin - Tablet 00 Instructio Externa Therapy ns Use as l Pack directed Gabapentin 2021-05- No [id number] 100mg Take 1 Edita 100 MG oral 0-26 09-08 capsule Seyb old Capsule 00:00: 00:00 (100 mg - 00 :00 total) by Externa mouth 3 l times daily methylPREDN 2021-05- No [id number] 1{dandre} Take 1 dandre Edita ISolone 4 0-26 12-12 by mouth Seybo ld MG oral 00:00: 00:00 See Admin - Tablet 00 :00 Instructio Externa Therapy ns Use as l Pack directed Pantoprazol Yes [id number] 40mg Take 1 Edita e Sodium 40 8-01 tablet (40 Se ybold MG oral 00:00: mg total) - Tablet 00 by mouth Externa Delayed daily l Response Pantoprazol Yes [id number] 40mg Take 1 Edita e Sodium 40 8-01 tablet (40 Se ybold MG oral 00:00: mg total) - Tablet 00 by mouth Externa Delayed daily l Response Pantoprazol Yes [id number] 40mg Take 1 Edita e Sodium 40 8-01 tablet (40 Se ybold MG oral 00:00: mg total) - Tablet 00 by mouth Externa Delayed daily l Response Ondansetron Yes [id number] 4mg Q.[id number] Take 1 Edita (Zofran 5-20 [id number] tablet (4 S eybold ODT) 4 MG 00:00: 3D mg total) - oral TABLET 00 by mouth Exte rna DISPERSIBLE every 8 l hours as needed for nausea Ondansetron Yes [id number] 4mg Q.[id number] Take 1 Edita (Zofran 5-20 [id number] tablet (4 S eybold ODT) 4 MG 00:00: 3D mg total) - oral TABLET 00 by mouth Exte rna DISPERSIBLE every 8 l hours as needed for nausea Ondansetron 2021-0 Yes [id number] 4mg Q.[id number] Take 1 Edita (Zofran 5-20 [id number] tablet (4 S eybold ODT) 4 MG 00:00: 3D mg total) - oral TABLET 00 by mouth Exte rna DISPERSIBLE every 8 l hours as needed for nausea Ondansetron 2021-0 Yes [id number] 4mg Q.[id number] Take 1 Edita (Zofran 5-20 [id number] tablet (4 S eybold ODT) 4 MG 00:00: 3D mg total) - oral TABLET 00 by mouth Exte rna DISPERSIBLE every 8 l hours as needed for nausea Ondansetron 2021-0 2023- No [id number] 4mg Q.[id number] Take 1 Edita (Zofran 5-20 09-08 [id number] tablet (4 Seybold ODT) 4 MG 00:00: 00:00 3D mg total) - oral TABLET 00 :00 by mouth Exte rna DISPERSIBLE every 8 l hours as needed for nausea Sucralfate 2021-0 2021- No [id number] TAKE 1 Edita 1 g oral 5-10 10-26 TABLET BY Seybo ld Tablet 00:00: 00:00 MOUTH 4 - 00 :00 TIMES Externa DAILY. l Celecoxib 2021-0 2021- No [id number] 200mg TAKE 1 Edita 200 MG oral 5-10 10-26 CAPSULE Seyb old Capsule 00:00: 00:00 (200 MG - 00 :00 TOTAL) BY Externa MOUTH IN l THE MORNING AND 1 CAPSULE (200 MG TOTAL) IN THE EVENING. Ursodiol 2021-0 Yes 500mg Take 500 Jenise ey 500 MG oral 4-13 mg by Seybold Tablet 15:19: mouth 50 daily Cyclobenzap 2021-0 Yes [id number] 5mg Q.[id number] Take 1 Edita rine HCl 5 4-13 [id number] tablet (5 Seybold MG oral 00:00: 3D mg total) Tablet 00 by mouth 3 times daily as needed for muscle spasms Sucralfate 2022-0 Yes [id number] 1g Take 1 K elsey 1 g oral 4-13 tablet (1 Seybol d Tablet 00:00: g total) 00 by mouth 4 times daily Tramadol 0 Yes [id number] 50mg Q.25D Take 1 Ke lsey HCl 50 MG 4-13 tablet (50 Seyb old oral Tablet 00:00: mg total) 00 by mouth every 6 hours as needed for pain Celecoxib 0 Yes [id number] 200mg Take 1 K elsey (CeleBREX) 4-13 capsule Seybol d 200 MG oral 00:00: (200 mg Capsule 00 total) by mouth in the morning and 1 capsule (200 mg total) in the evening. Cyclobenzap 2021-0 2021- No [id number] 5mg Q.[id number] Take 1 Edita rine HCl 5 -03-12 [id number] tablet (5 Seybold MG oral 00:00: 00:00 3D mg total) - Tablet 00 :00 by mouth 3 Externa times l daily as needed for muscle spasms Tramadol 0 2021- No [id number] 50mg Q.25D Take 1 K elsey HCl 50 MG -03-12 tablet (50 Sey bold oral Tablet 00:00: 00:00 mg total) - 00 :00 by mouth Externa every 6 l hours as needed for pain Pantoprazol Yes [id number] 40mg Take 1 Edita e Sodium 40 1-28 tablet (40 Se ybold MG oral 00:00: mg total) Tablet 00 by mouth Delayed daily Response Promethazin Yes 5mL Q.[id number] Take 5 mL Edita e-DM - [id number] by mouth Seybo ld 6.25-15 00:00: 3D every 8 MG/5ML oral 00 hours as Syrup needed Azithromyci Yes TAKE 2 Jenise ey n 250 MG 1-28 TABLETS BY Seybo ld oral Tablet 00:00: MOUTH 00 TODAY, THEN TAKE 1 TABLET DAILY FOR 4 DAYS Promethazin 2021-0 2021- No 5mL Q.[id number] Take 5 mL Edita e-DM -14 03- [id number] by mouth Seyb old 6.25-15 00:00: 00:00 3D every 8 - MG/5ML oral 00 :00 hours as Exte rna Syrup needed l methylPREDN 2021-0 Yes 1{dandre} Take 1 dandre Melissaone 4 1-06 by mouth Seybol d MG oral 00:00: See Admin Tablet 00 Instructio Therapy ns Use as Pack directed methylPREDN 2021-0 2021- No 1{dandre} Take 1 dandre Melissaone 4 1-06 10-26 by mouth Seybo ld MG oral 00:00: 00:00 See Admin - Tablet 00 :00 Instructio Externa Therapy ns Use as l Pack directed Ursodiol 2020-05 Yes 500mg Take 500 Jenise ey 500 MG oral 0-21 mg by Seybold Tablet 08:52: mouth 54 daily Zolpidem 2020-1 Yes Edita Tartrate 10 0-20 Seybold MG oral 00:00: - Tablet 00 Externa l Zolpidem 2020-1 Yes Edita Tartrate 10 0-20 Seybold MG oral 00:00: - Tablet 00 Externa l Zolpidem 2020-1 Yes Edita Tartrate 10 0-20 Seybold MG oral 00:00: - Tablet 00 Externa l Zolpidem 2020-1 Yes Edita Tartrate 10 0-20 Seybold MG oral 00:00: - Tablet 00 Externa l Zolpidem 2020-1 Yes Edita Tartrate 10 0-20 Seybold MG oral 00:00: Tablet 00 Zolpidem 2020-1 Yes Edita Tartrate 10 0-20 Seybold MG oral 00:00: Tablet 00 Zolpidem 2020-1 Yes Edita Tartrate 10 0-20 Seybold MG oral 00:00: - Tablet 00 Externa l Venlafaxine 2020-0 Yes Edita HCl 150 MG 9-15 Seybold oral 00:00: - Capsule 24 00 Externa Hour l Sustained Release Venlafaxine 2020-0 Yes Edita HCl 150 MG 9-15 Seybold oral 00:00: - Capsule 24 00 Externa Hour l Sustained Release Venlafaxine 2020-0 Yes Edita HCl 150 MG 9-15 Seybold oral 00:00: - Capsule 24 00 Externa Hour l Sustained Release Venlafaxine 2020-0 Yes Edita HCl 150 MG 9-15 Seybold oral 00:00: - Capsule 24 00 Externa Hour l Sustained Release Venlafaxine 1-0 Yes Edita HCl 150 MG 9-15 Seybold oral 00:00: Capsule 24 00 Hour Sustained Release Venlafaxine 1-0 Yes Edita HCl 150 MG 9-15 Seybold oral 00:00: Capsule 24 00 Hour Sustained Release Venlafaxine 1-0 Yes Edita HCl 150 MG 9-15 Seybold oral 00:00: - Capsule 24 00 Externa Hour l Sustained Release Dexilant 60 1-0 Yes Edita MG oral 9-14 Seybold Delayed 00:00: Release 00 Capsule Venlafaxine 1-0 Yes Edita HCl 37.5 MG 9-13 Seybold oral 00:00: - Capsule 24 00 Externa Hour l Sustained Release Venlafaxine 1-0 Yes Edita HCl 37.5 MG 9-13 Seybold oral 00:00: - Capsule 24 00 Externa Hour l Sustained Release Venlafaxine 1-0 Yes Edita HCl 37.5 MG 9-13 Seybold oral 00:00: - Capsule 24 00 Externa Hour l Sustained Release Venlafaxine 1-0 Yes Edita HCl 37.5 MG 9-13 Seybold oral 00:00: - Capsule 24 00 Externa Hour l Sustained Release Venlafaxine 1-0 Yes Edita HCl 37.5 MG 9-13 Seybold oral 00:00: Capsule 24 00 Hour Sustained Release Venlafaxine 1-0 Yes Edita HCl 37.5 MG 9-13 Seybold oral 00:00: Capsule 24 00 Hour Sustained Release Venlafaxine 1-0 Yes Edita HCl 37.5 MG 9-13 Seybold oral 00:00: - Capsule 24 00 Externa Hour l Sustained Release Levothyroxi 1-0 Yes Edita ne Sodium 8-24 Seybold 50 MCG oral 00:00: Tablet 00 Levothyroxi 2020-0 Yes Edita ne Sodium 8-24 Seybold 50 MCG oral 00:00: Tablet 00 Levothyroxi 2020-0 Yes Edita ne Sodium 8-24 Seybold 50 MCG oral 00:00: - Tablet 00 Externa l benzonatate 2016-0 Yes 100mg Take 1 Uni vers (TESSALON 4-19 capsule by Mary) 100 00:00: mouth 3 Benny as mg capsule 00 (three) Medica l times Branch daily as needed for Cough. Vital Signs Vital Name Observation Time Observation Value Comments Source Body height 2023-03-11 13:02:00 152.4 cm Edita garridobold - External Body weight 2023-03-11 13:02:00 71.487 kg Edita Fuentes eybold - External BMI 2023-03-11 13:02:00 30.78 kg/m2 Edita Funetes eybold - External Systolic blood 2023-02-23 15:39:00 131 mm[Hg] Edita Seybold - pressure External Diastolic blood 2023-02-23 15:39:00 93 mm[Hg] Ele arriaga Seybold - pressure External Heart rate 2023-02-23 15:39:00 65 /min Edita Fuentes eybold - External Body temperature 2023-02-23 15:39:00 36.61 Nelda Jenise ey Seybold - External Respiratory rate 2023-02-23 15:39:00 15 /min Jenise garrido Seybold - External Body height 2023-02-23 15:39:00 152.4 cm Edita Fuentes eybold - External Body weight 2023-02-23 15:39:00 72.576 kg Edita Fuentes eybold - External BMI 2023-02-23 15:39:00 31.25 kg/m2 Edita Fuentes eybold - External Oxygen saturation in 2023-02-23 15:39:00 99 /min Edita Pachecogerardshaniqua - Arterial blood by External Pulse oximetry Systolic blood 2023-01-23 19:59:00 129 mm[Hg] Edita Pachecoybold - pressure External Diastolic blood 2023-01-23 19:59:00 87 mm[Hg] Renatose y Seybold - pressure External Heart rate 2023-01-23 19:59:00 69 /min Edita Fuentes eybold - External Body temperature 2023-01-23 19:59:00 37.11 Nelda Jenise ey Seybold - External Respiratory rate 2023-01-23 19:59:00 20 /min Jenise garrido Seybold - External Body height 2023-01-23 19:59:00 152.4 cm Edita Fuentes eybold - External Body weight 2023-01-23 19:59:00 72.576 kg Edita Fuentes eybold - External BMI 2023-01-23 19:59:00 31.25 kg/m2 Edita Fuentes eybold - External Oxygen saturation in 2023-01-23 19:59:00 99 /min Edita Seybold - Arterial blood by External Pulse oximetry Systolic blood 2022-06-03 20:05:00 120 mm[Hg] Edita Seybold - pressure External Diastolic blood 2022-06-03 20:05:00 86 mm[Hg] Renatose y Seybold - pressure External Heart rate 2022-06-03 20:05:00 128 /min Edita Fuentes eybold - External Body temperature 2022-06-03 20:05:00 37.78 Nelda Jenise ey Seybold - External Respiratory rate 2022-06-03 20:05:00 14 /min Jenise ey Seybold - External Body height 2022-06-03 20:05:00 152.4 cm Edita Fuentes eybold - External Body weight 2022-06-03 20:05:00 72.576 kg Edita Fuentes eybold - External BMI 2022-06-03 20:05:00 31.25 kg/m2 Edita Fuentes eybold - External Systolic blood 2022-03-12 13:40:00 138 mm[Hg] Edita Seybold - pressure External Diastolic blood 2022-03-12 13:40:00 88 mm[Hg] Renatose y Seybold - pressure External Heart rate 2022-03-12 13:40:00 105 /min Edita S eybold - External Body temperature 2022-03-12 13:40:00 35.5 Nelda Jenise ey Seybold - External Respiratory rate 2022-03-12 13:40:00 15 /min Jenise ey Seybold - External Body height 2022-03-12 13:40:00 152.4 cm Edita Fuentes eybold - External Body weight 2022-03-12 13:40:00 71.668 kg Edita S eybold - External BMI 2022-03-12 13:40:00 30.86 kg/m2 Edita S eybold - External Systolic blood 2021-08-28 20:16:00 138 mm[Hg] Edita Seybold pressure Diastolic blood 2021-08-28 20:16:00 94 mm[Hg] Kelse y Seybold pressure Heart rate 2021-08-28 20:16:00 79 /min Edita Fuentes eybold Body temperature 2021-08-28 20:16:00 36.89 Nelda Jenise ey Seybold Respiratory rate 2021-08-28 20:16:00 14 /min Jenise ey Seybold Body height 2021-08-28 20:16:00 152.4 cm Edita Fuentes eybold Body weight 2021-08-28 20:16:00 72.848 kg Edita Fuentes eybold BMI 2021-08-28 20:16:00 31.37 kg/m2 Edita S eybold Systolic blood 2021-03-07 13:45:00 140 mm[Hg] Edita Seybold pressure Diastolic blood 2021-03-07 13:45:00 90 mm[Hg] Kelse y Seybold pressure Heart rate 2021-03-07 13:45:00 79 /min Edita Fuentes eybold Body temperature 2021-03-07 13:45:00 36.28 Nelda Jenise ey Seybold Respiratory rate 2021-03-07 13:45:00 16 /min Jenise garrido Seybold Body height 2021-03-07 13:45:00 152.4 cm Edita Fuentes eybold Body weight 2021-03-07 13:45:00 71.215 kg Edita Fuentes eybold BMI 2021-03-07 13:45:00 30.66 kg/m2 Edita garridobomak Procedures Procedure Date / Time Performing Clinician Source Performed LS RAPID STREP ASSAY-LAB 2022-06-03 21:32:00 Catarina Guzman Seybold - TEST Somogyi External LS RAPID FLU ASSAY-LAB 2022-06-03 21:32:00 Catarina Guzman Seybold - TEST Somogyi External [facility] PATIENT FINANCIAL 2021-07-12 20:13:59 Doctor Unassigned, [facility] POLICY [facility] NO SHOW OR MISSED 2021-07-12 20:13:47 Doctor Unassigned, [facility] APPOINTMENT POLICY [facility] ACKNOWLEDGEMENT CONSENT/REFUSAL FOR 2021-07-12 20:13:34 Doctor Unassigned, [facility] DIAGNOSIS AND TREATMENT [facility] ASSIGNMENT OF BENEFITS 2021-07-12 20:13:21 Doctor Unassigned, [facility] Encounters Start End Encounter Admission Attending Care Care Encounter Source Date/Time Date/Time Type Type Clinicians Facility Department ID 2023-03-25 2023-03-25 [id number] [place] 10:30:00 11:06:42 [facility] 2023-03-24 2023-03-24 Outpatient EDITA AU [id number] [place] 00:00:00 00:00:00 KEYON Seybol d 2023-03-13 2023-03-13 Outpatient EDITA SAGASTUME [id number] [place] 13:00:00 13:00:00 Seybol d 2023-03-13 2023-03-13 Outpatient EDITA PIERSON [id number] [place] 00:00:00 00:00:00 ELEANOR Seybol d 2023-03-11 2023-03-11 Outpatient EDITA SAGASTUME [id number] [place] 09:30:00 09:30:00 Seybol d 2023-03-11 2023-03-11 Outpatient EDITA PIERSON [id number] [place] 08:00:00 08:00:00 ELEANOR Seybol d 2023-03-11 2023-03-11 Outpatient EDITA PIERSON [id number] [place] 00:00:00 00:00:00 ELEANOR Seybol d 2023-03-08 2023-03-08 Outpatient EDITA SAUNDERS [id number] [place] 00:00:00 00:00:00 LAMINE Seybol d 2023-02-23 2023-02-23 Outpatient EDITA AU [id number] [place] 10:30:00 10:30:00 KEYON Seybol d 2023-02-20 2023-02-20 Outpatient EDITA SAUNDERS [id number] [place] 09:00:00 09:00:00 LAMINE Seybol d 2023-02-10 2023-02-10 Outpatient EDITA SAUNDERS EDITA [id number] [place] 00:00:00 00:00:00 LAMINE Seybol d 2023-02-10 2023-02-10 Outpatient EDITA SAUNDERS EDITA [id number] [place] 00:00:00 00:00:00 LAMINE Seybol d 2023-02-10 2023-02-10 Outpatient EDITA SAUNDERS EDITA [id number] [place] 00:00:00 00:00:00 LAMINE Seybol d 2023-01-28 2023-01-28 Outpatient EDITA EDITA [id number] [place] 13:55:00 13:55:00 Seybol d 2023-01-28 2023-01-28 Outpatient EDITA SAGASTUME [id number] [place] 13:50:00 13:50:00 Seybol d 2023-01-28 2023-01-28 Outpatient NICKY EDITA SAGASTUME [id number] [place] 00:00:00 00:00:00 LAMINE Seybol d 2023-01-27 2023-01-27 Outpatient EDITA SAGASTUME [id number] [place] 15:45:00 15:45:00 Seybol d 2023-01-27 2023-01-27 Outpatient EDITA SAGASTUME [id number] [place] 15:40:00 15:40:00 Seybol d 2023-01-27 2023-01-27 Outpatient EDITA SAGASTUME [id number] [place] 15:35:00 15:35:00 Seybol d 2023-01-26 2023-01-26 Outpatient NICKY EDITA SAGASTUME [id number] [place] 00:00:00 00:00:00 LAMINE Seybol d 2023-01-23 2023-01-23 Outpatient LAB90 EDITA SAGASTUME [id number] [place] 15:55:00 15:55:00 Seybol d 2023-01-23 2023-01-23 Outpatient EDITA SAUNDERS [id number] [place] 15:00:00 15:00:00 LAMINE Seybol d 2022-12-24 2022-12-24 Outpatient EDITA SOUZA [id number] [place] 00:00:00 00:00:00 MADELINE Seybol d 2022-12-22 2022-12-22 Outpatient EDITA GUZMAN [id number] [place] 00:00:00 00:00:00 CATARINA Seybol d 2022-10-23 2022-10-23 Outpatient EDITA SOUZA [id number] [place] 00:00:00 00:00:00 MADELINE Seybol d 2022-07-10 2022-07-10 Outpatient EDITA SU [id number] [place] 12:35:00 12:35:00 LISA Seybol d 2022-06-20 2022-06-20 Outpatient EDITA GUZMAN [id number] [place] 00:00:00 00:00:00 CATARINA Seybol d 2022-06-06 2022-06-06 Outpatient EDITA GUZMAN [id number] [place] 00:00:00 00:00:00 CATARINA Seybol d 2022-06-06 2022-06-06 Outpatient EDITA AU [id number] [place] 00:00:00 00:00:00 KEYON Seybol d 2022-06-04 2022-06-04 Outpatient EDITA GUZMAN [id number] [place] 00:00:00 00:00:00 CATARINA Seybol d 2022-06-03 2022-06-03 Outpatient EDITA GUZMAN [id number] [place] 13:45:00 13:45:00 CATARINA Seybol d 2022-06-03 2022-06-03 Outpatient EDITA GUZMAN [id number] [place] 00:00:00 00:00:00 CATARINA Seybol d 2022-06-03 2022-06-03 Outpatient EDITA GUZMAN [id number] [place] 00:00:00 00:00:00 CATARINA Seybol d 2022-05-23 2022-05-23 Outpatient EDITA GUZMAN [id number] [place] 00:00:00 00:00:00 CATARINA Seybol d 2022-04-28 2022-04-28 Outpatient MEGAN EDITA SAGASTUME [id number] [place] 13:30:00 13:30:00 CATARINA Seybol d 2022-04-28 2022-04-28 Outpatient MEGAN EDITA SAGASTUME [id number] [place] 00:00:00 00:00:00 CATARINA Seybol d 2022-04-28 2022-04-28 Outpatient EDITA GUZMAN [id number] [place] 00:00:00 00:00:00 CATARINA Seybol d 2022-04-19 2022-04-19 Outpatient EDITA GUZMAN [id number] [place] 00:00:00 00:00:00 CATARINA Seybol d 2022-03-20 2022-03-20 Outpatient EDITA SOUZA [id number] [place] 00:00:00 00:00:00 MADELINE Seybol d 2022-03-12 2022-03-12 Outpatient LAB90 EDITA SAGASTUME [id number] [place] 09:30:00 09:30:00 Seybol d 2022-03-12 2022-03-12 Outpatient HARLEY EDITA SAGASTUME [id number] [place] 08:30:00 08:30:00 MADELINE Seybol d 2022-03-12 2022-03-12 Outpatient EDITA SOUZA [id number] [place] 00:00:00 00:00:00 MADELINE Seybol d 2022-03-11 2022-03-11 Outpatient EDITA SOUZA [id number] [place] 13:30:00 13:30:00 MADELINE Seybol d 2021-10-04 2021-10-04 Outpatient HARLEY EDITA SAGASTUME [id number] [place] 00:00:00 00:00:00 MADELINE Seybol d 2021-08-28 2021-08-28 Office Brody SOUZA [id number] [place] 15:00:00 15:00:00 Visit MADELINE Cornelius [id number] Se ybold [id number] 2021-08-28 2021-08-28 Outpatient EDITA SOUZA [id number] [place] 00:00:00 00:00:00 MADELINE Seybol d 2021-07-12 2021-07-12 Hospital Radiology [facility] [id number] Univers 14:14:56 23:59:00 Encounter IASBELLEBARBARA [id number] ity [facility] [id number] [facility] [id number] [facility] [address] Branch 2021-07-12 2021-07-12 Outpatient R RADIOLOGY [facility] [id number] Univers 14:14:56 23:59:00 ity of [facility] 2021-06-14 2021-06-14 Outpatient EDITA GUZMAN [id number] [place] 00:00:00 00:00:00 CATARINA Seybol d 2021-06-14 2021-06-14 Outpatient EDITA GUZMAN [id number] [place] 00:00:00 00:00:00 CATARINA Seybol d 2021-06-09 2021-06-09 Outpatient EDITA GUZMAN [id number] [place] 00:00:00 00:00:00 CATARINA Seybol d 2021-05-23 2021-05-23 Outpatient EDITA GUZMAN [id number] [place] 00:00:00 00:00:00 CATARINA Seybol d 2021-05-20 2021-05-20 Outpatient EDITA UGZMAN [id number] [place] 15:15:00 15:15:00 CATARINA Seybol d 2021-05-14 2021-05-14 Outpatient EDITA SOUZA [id number] [place] 00:00:00 00:00:00 MADELINE Seybol d 2021-03-07 2021-03-07 Outpatient LAB90 EDITA SAGASTUME [id number] [place] 10:05:00 10:05:00 Seybol d 2021-03-07 2021-03-07 Office Brody Guzman [id number] [place] 08:23:16 08:53:16 Visit Catarina Cornelius [id number] Se xiomara Wheeler [id number] Results Test Description Test Time Test Comments Results Result Comments Source RAPID FLU ASSAY-LAB TEST 2022-06-03 21:46:59 Test Item Value Reference Range Interpretation Comme nts INFLUENZA B AG, EIA (test code = 46207-4) Negative Negative Lab Interpretation (test code = 66569-7) Normal Edita Valdez [facility] RAPID STREP ASSAY-LAB [id number] 21:42:06 Test Item Value Reference Range Interpretation Comments STREP GP A AG, IA (test Negative Negative Infe ction due to code = 50424-0) Strep A jamaal ot be ruled-out becau se the antigen present in the sample may be below the detec tion limit of the te st. Specimen has be en sent for confir mation of negative. Lab Interpretation (test Normal code = 35978-9) [facility]
[2023-04-02 18:43] LABS: Urine Bacteria <20 /HPF (<20); Urine Bilirubin NEGATIVE (Negative); Urine Blood 3+ (OVER) (Negative); Urine Clarity Extremely Turbid (Clear); Urine Color Colorless (Yellow); Urine Crystals Unidentified Few /HPF (None Seen); Urine Glucose NEGATIVE (Negative); Urine Mucus 2+ /HPF (None Seen); Urine Protein 1+ (Negative); Urine RBC >50 /HPF (None Seen); Urine Urobilinogen Normal (Normal); Urine pH 5.5 (5.0-7.0)
[2023-04-02 18:51] LABS: Absolute Lymphocytes (CBC) 1.8 K/uL (0.7-4.9); Hematocrit 39.9 % (36.0-45.0); Lymphocytes % 33.9 % (15.3-44.8); MCV 88.7 fL (80-100); MPV 8.2 fL (7.6-11.3); Platelets 244 thou/uL (152-406)
[2023-04-02] MEDS ORDERED: ONDANSETRON 4 MG/2 ML VIAL ONE (18:58)
--- NOTE | 2023-04-02 19:19 | RAD REPORT ---
EXAM DESCRIPTION: CT - Abdomen Pelvis Wo Contrast - 04/02/2023 6:40 pm CLINICAL HISTORY: FLANK PAIN COMPARISON: Abdomen Pelvis W Contrast dated 10/29/2019; Abdomen Pelvis W Contrast dated 01/15/2018 ; Abdomen Pelvis W Contrast dated 01/28/2017; Abdomen Pelvis W Contrast dated 12/10/2016 TECHNIQUE: Thin cut axial CT imaging of the abdomen and pelvis was performed without IV contrast. Mu ltiplanar reformats were generated and reviewed. All CT scans are performed using dose optimization technique as appropriate and may include automated exposure control or mA/KV adjustment according to patient size. FINDINGS: No suspicious findings in the lung bases. The liver, spleen, adrenal glands, and pancreas show no suspicious findings. Gallbladder was surgical ly removed. Symmetric renal contour, without suspicious parenchymal findings within limits of noncontrast techniq ue. A 5 millimeter calculus at the right ureteropelvic junction. Mild right hydronephrosis. No dilated bowel loops or bowel wall thickening. No free air, free fluid or inflammatory stranding. N o hernia, mass or bulky lymphadenopathy. The urinary bladder is decompressed limiting evaluation. Seq uelae of ventral hernia mesh repair. No suspicious bony findings. IMPRESSION: Mild right hydronephrosis, with a 5 millimeter right ureteropelvic junction calculus. Other incidental findings as above. The findings were communicated to Álvaro Harry on 04/02/2023 at 19:15 hours.
[2023-04-02 19:24] LABS: Albumin 3.9 g/dL (3.4-5.0); Bilirubin Total 0.7 mg/dL (0.2-1.0); Potassium 3.6 mEq/L (3.5-5.1); Protein, Total 7.5 g/dL (6.4-8.2)
--- NOTE | 2023-04-02 19:32 | EDPHYS ---
Physician Documentation [facility] Name: Lavern Acosta Age: 47 yrs Sex: Female : 1975 Arrival Date: 04/02/2023 Time: 17:25 Bed 16 Private MD: ED Physician Álvaro Harry HPI: 04/02 21:43 This 47 yrs old Female presents to ER via Ambulatory with complaints of Abnormal Lab rt Results. 21:43 Patient presents to the ED with 1 week of suprapubic pain radiating to the right flank rt with associated cloudy urine. Patient did notice 1 episode of hematuria. Patient was seen in urgent care today, was told she had an abnormal urinalysis, sent to the ED for further evaluation. Denies other acute complaints at this time. Symptoms are moderate severity, aching nature, not otherwise radiating, no other aggravating elevating factors.. Historical: - Allergies: 17:39 Amoxicillin; ph 17:39 Aspirin; ph 17:39 Codeine; ph 17:39 Ibuprofen; ph 17:39 Keflex; ph 17:39 Latex; ph 17:39 Levaquin; ph 17:39 PENICILLINS; ph - PMHx: 17:39 Anxiety; breast cancer; Depression; GERD; ph - PSHx: 17:42 Total abdominal hysterectomy; ph - Immunization history:: Adult Immunizations unknown. - Social history:: Smoking status: Patient denies any tobacco usage or history of. - Family history:: not pertinent. ROS: 21:43 Constitutional: Negative for fever, chills, and weight loss, Cardiovascular: Negative rt for chest pain, palpitations, and edema, Respiratory: Negative for shortness of breath, cough, wheezing, and pleuritic chest pain, Abdomen/GI: Negative for abdominal pain, nausea, vomiting, diarrhea, and constipation, Skin: Negative for injury, rash, and discoloration, Neuro: Negative for headache, weakness, numbness, tingling, and seizure, Psych: Negative for depression, anxiety, suicide ideation, homicidal ideation, and hallucinations, 21:43 Back: Positive for flank pain, Negative for injury or acute deformity, 21:43 : Positive for Cloudy urine, hematuria, Exam: 21:43 Constitutional: This is a well developed, well nourished patient who is awake, alert, rt and in no acute distress. Head/Face: Normocephalic, atraumatic. Chest/axilla: Normal chest wall appearance and motion. Nontender with no deformity. No lesions are appreciated. Cardiovascular: Regular rate and rhythm with a normal S1 and S2. No gallops, murmurs, or rubs. Normal PMI, no JVD. No pulse deficits. Respiratory: Lungs have equal breath sounds bilaterally, clear to auscultation and percussion. No rales, rhonchi or wheezes noted. No increased work of breathing, no retractions or nasal flaring. Abdomen/GI: Soft, non-tender, with normal bowel sounds. No distension or tympany. No guarding or rebound. No evidence of tenderness throughout. Skin: Warm, dry with normal turgor. Normal color with no rashes, no lesions, and no evidence of cellulitis. MS/ Extremity: Pulses equal, no cyanosis. Neurovascular intact. Full, normal range of motion. Neuro: Awake and alert, GCS 15, oriented to person, place, time, and situation. Cranial nerves II-XII grossly intact. Motor strength 5/5 in all extremities. Sensory grossly intact. Cerebellar exam normal. Normal gait. Psych: Awake, alert, with orientation to person, place and time. Behavior, mood, and affect are within normal limits. Vital Signs: 17:39 BP 139 / 92; Pulse 68; Resp 18; Temp 99.1; Pulse Ox 100% ; Weight 72.57 kg; Height 5 ph ft. 2 in. ; 19:49 BP 132 / 90; Pulse 58; Resp 18; Temp 98.6(O); Pulse Ox 100% on R/A; Pain 1/10; la4 17:39 Body Mass Index 29.26 (72.57 kg, 157.48 cm) ph 19:49 Pain Scale: Adult la4 19:49 lower abdomen pain reported la4 Britt Coma Score: 19:49 Eye Response: spontaneous(4). Motor Response: obeys commands(6). Verbal Response: la4 oriented(5). Total: 15. MDM: 18:10 Patient medically screened. rt 21:43 Differential Diagnosis UTI, pyelonephritis, nephrolithiasis. Data reviewed: vital rt signs, nurses notes. Consideration of Admission/Observation Escalation of care including admission/observation considered. No bacteria or WBCs in the urine, do not suspect infected stone, no indications for admission at this time, this kidney stone is amenable to for trial of spontaneous passage. Patient to follow-up with urology in the clinic.. Independent interpretation of the following test(s) in the Emergency Department CT Scan: My interpretation is Ureteral stone seen on interpretation of CT scan images. Counseling: I had a detailed discussion with the patient and/or guardian regarding the historical points, exam findings, and any diagnostic results supporting the discharge/admit diagnosis, lab results, radiology results, the need for outpatient follow up. Response to treatment: the patient's symptoms have markedly improved after treatment. 04/02 18:19 Order name: CBC with Diff; Complete Time: 19:14 rt 04/02 18:19 Order name: CMP; Complete Time: 19:25 rt 04/02 18:19 Order name: UAM; Complete Time: 19:14 rt 04/02 18:19 Order name: CT Abd/Pelvis - Without Contrast; Complete Time: 19:25 rt Administered Medications: 18:52 Drug: fentaNYL (PF) IVP 50 mcg IVP once Route: IVP; Site: left antecubital; rs5 18:53 Drug: Ondansetron IVP 4 mg IVP once; over 2 minutes Route: IVP; Site: left antecubital; rs5 Disposition Summary: 04/02/23 19:32 Discharge Ordered Notes: Location: Home rt Problem: new rt Symptoms: have improved rt Condition: Stable rt Diagnosis - Calculus of ureter rt Followup: rt - With: Dave Sin MD - When: 7 - 10 days - Reason: Discharge Instructions: - Discharge Summary Sheet rt - Kidney Stones rt Forms: - Medication Reconciliation Form rt - Thank You Letter rt - Antibiotic Education rt - Prescription Opioid Use rt - Patient Portal Instructions rt - Leadership Thank You Letter rt Prescriptions: - Flomax 0.4 mg Oral capsule - take 1 capsule ORAL route every 24 hours; 14 capsule; Refills: 0, Product rt Selection Permitted - ondansetron 4 mg Oral Tablet,disintegrating - take 1 tablet ORAL route every 6 hours; 15 tablet; Refills: 0, Product rt Selection Permitted - Tramadol 50 mg Oral tablet - take 1 tablet ORAL route every 8 hours as needed; 18 tablet; Refills: 0, rt Product Selection Permitted Signatures: Dispatcher [employer] Katherine Dow RN RN ph Álvaro Harry MD MD rt Mega Borges, LAURI RN rs5
--- NOTE | 2023-04-02 19:32 | ER ---
Nurse's Notes [facility] Name: Lavern Acosta Age: 47 yrs Sex: Female : 1975 Arrival Date: 04/02/2023 Time: 17:25 Bed 16 Private MD: Diagnosis: Calculus of ureter Presentation: 04/02 17:39 Chief complaint: Patient states: Blood in urine, R flank pain, lower abdominal pain x 1 ph week. Also reports chills and nausea, denies fever V/D. Coronavirus screen: Vaccine status: Patient reports receiving the 2nd dose of the covid vaccine. Ebola Screen: No symptoms or risks identified at this time. Initial Sepsis Screen: Does the patient meet any 2 criteria? No. Patient's initial sepsis screen is negative. Does the patient have a suspected source of infection? No. Patient's initial sepsis screen is negative. Risk Assessment: Do you want to hurt yourself or someone else? Patient reports no desire to harm self or others. Onset of symptoms was April 02, 2023. 17:39 Method Of Arrival: Ambulatory ph 17:39 Acuity: YOU 3 ph Historical: - Allergies: 17:39 Amoxicillin; ph 17:39 Aspirin; ph 17:39 Codeine; ph 17:39 Ibuprofen; ph 17:39 Keflex; ph 17:39 Latex; ph 17:39 Levaquin; ph 17:39 PENICILLINS; ph - PMHx: 17:39 Anxiety; breast cancer; Depression; GERD; ph - PSHx: 17:42 Total abdominal hysterectomy; ph - Immunization history:: Adult Immunizations unknown. - Social history:: Smoking status: Patient denies any tobacco usage or history of. - Family history:: not pertinent. Screenin:50 [facility] ED Fall Risk Assessment (Adult) History of falling in the last 3 months, rs5 including since admission No falls in past 3 months (0 pts) Confusion or Disorientation No (0 pts) Intoxicated or Sedated No (0 pts) Impaired Gait No (0 pts) Mobility Assist Device Used No (0 pt) Altered Elimination No (0 pt) Score/Fall Risk Level 0 - 2 = Low Risk Oriented to surroundings, Maintained a safe environment. 17:50 Abuse screen: Denies threats or abuse. Nutritional screening: No deficits noted. rs5 Tuberculosis screening: No symptoms or risk factors identified. Assessment: 17:50 General: Appears in no apparent distress. comfortable, Behavior is calm, cooperative. rs5 Pain: Complains of pain in right flank, lower abdomen bilat Pain does not radiate. Pain currently is 8 out of 10 on a pain scale. Quality of pain is described as aching, Pain began 2-3 days ago. Is continuous. Neuro: Level of Consciousness is awake, alert, obeys commands, Oriented to person, place, time, situation. Cardiovascular: Heart tones S1 S2 present Rhythm is regular. Respiratory: Airway is patent Respiratory effort is even, unlabored, Respiratory pattern is regular, symmetrical, Breath sounds are clear bilaterally. GI: Abdomen is round non-distended, Bowel sounds present X 4 quads. Abd is soft and non tender X 4 quads. Reports nausea, Patient currently denies vomiting. : No signs and/or symptoms were reported regarding the genitourinary system. : Reports burning with urination, since 03/26/23 blood in urine. EENT: No signs and/or symptoms were reported regarding the EENT system. 17:50 Derm: Skin is intact, Skin is pink, warm \T\ dry. Musculoskeletal: Range of motion: rs5 intact in all extremities. 18:00 Reassessment: Pt left for CT. rs5 18:21 Reassessment: Pt returned from CT. rs5 Vital Signs: 17:39 BP 139 / 92; Pulse 68; Resp 18; Temp 99.1; Pulse Ox 100% ; Weight 72.57 kg; Height 5 ph ft. 2 in. ; 19:49 BP 132 / 90; Pulse 58; Resp 18; Temp 98.6(O); Pulse Ox 100% on R/A; Pain 1/10; la4 17:39 Body Mass Index 29.26 (72.57 kg, 157.48 cm) ph 19:49 Pain Scale: Adult la4 19:49 lower abdomen pain reported la4 Britt Coma Score: 19:49 Eye Response: spontaneous(4). Motor Response: obeys commands(6). Verbal Response: la4 oriented(5). Total: 15. ED Course: 17:28 Patient arrived in ED. mg5 17:35 Álvaro Harry MD is Attending Physician. rt 17:42 Triage completed. ph 17:42 Arm band placed on Patient placed in an exam room. ph 17:51 Borges, Mega, RN is Primary Nurse. rs5 18:25 Inserted saline lock: 20 gauge in left antecubital area, using aseptic technique. Blood rs5 collected. 18:41 CT Abd/Pelvis - Without Contrast In Process Unspecified. EDMS 19:31 Dave Sin MD is Referral Physician. rt Administered Medications: 18:52 Drug: fentaNYL (PF) IVP 50 mcg IVP once Route: IVP; Site: left antecubital; rs5 18:53 Drug: Ondansetron IVP 4 mg IVP once; over 2 minutes Route: IVP; Site: left antecubital; rs5 Outcome: 19:32 Discharge ordered by MD. rt 21:20 Patient left the ED. la4 Signatures: Dispatcher [employer] EDMS Katherine Multani RN RN Álvaro Harry MD MD rt Mega Borges, RN RN rs5 Polina Ann mg5 Shola Miller RN RN la4 Corrections: (The following items were deleted from the chart) 18:53 17:50 Pain: Complains of pain in right flank, lower abdomen bilat Pain does not rs5 radiate. Pain currently is 3 out of 10 on a pain scale. Quality of pain is described as aching, Pain began 2-3 days ago. Is continuous, rs5
[2023-04-02 21:24] VITALS: O2SAT 100
[2023-04-02 21:26] VITALS: BP 132/90; TEMP 98.6
== END 2023-04-02 21:20 | disposition home or self-care (01) ==
LOC: ER 17:25
DX: N20.1 Calculus of ureter (principal); Z88.0 Allergy status to penicillin; Z88.1 Allergy status to other antibiotic agents; Z88.5 Allergy status to narcotic agent; Z88.6 Allergy status to analgesic agent; Z91.040 Latex allergy status
CPT/HCPCS: 85025; 81001; 36415; 80053; 74176; 96375; 96374; 99284; J2405

== ENCOUNTER 2023-05-14 23:49 | Emergency (ER) | payer OTHER ==
--- OUTSIDE RECORDS SUMMARY | 2023-05-14 23:52 | XMS REPORT | Continuity of Care Document ---
Author Name Unknown Address [address] [place] [address] [facility] thconnect Address [address] [place] [address] Care Team Providers Care Coater Associate Name Role Phone Catarina Guzman Primary Care Physician [phone] CATARINA GUZMAN Attending Clinician UnaАндрей Denton MD Attending Clinician [phone] KEYON AU Attending Clinician Unavailable ELEANOR PIERSON Attending Clinician UnavailLAMINE Rivera Attending Clinician Unavailab le LAB90 Attending Clinician Unavailable MADELINE SOUZA Attending Clinician Unavailable LISA SU Attending Clinician Unavail able Radiology Attending Clinician Unavailable RADIOLOGY Attending Clinician Unavailable Catarina Guzman MD Attending Clinician [phone] MICHELLE FARRIS Admitting Clinician Unavailable Payers Payer Name Policy Type Policy Number Effective Date Expirati on Date Source CIGNA-CIGNA/PPO 2 [id number] 2021 00:00:00 Problems Condition Name Condition Details Condition Category Status Onset Date Resolution Date Last Treatment Date Treating Clinician Comments Source Acute pain of left shoulder Acute pain of left shoulder Disease Active 2022-05 0 00:00: 00 Edita Seybold - Externa l Neck pain Neck pain Disease Active 2022-05 00:00: 00 Edita Seybold - Externa l DDD (degenerat edison disc disease), cervical DDD (degenerat edison disc disease), cervical Disease Active 2022-05 0 00:00: 00 Edita Seybold - Externa l Anxiety Anxiety Disease Active 01-23 00:00: 00 Edita Seybold - Externa l Hypothyroi dism Hypothyroi dism Disease Active 01-23 00:00: 00 Edita Seybold - Externa l Reflux esophagiti s Reflux esophagiti s Disease Active 01-23 00:00: 00 Edita Seybold - Externa l Prehyperte nsion Prehyperte nsion Disease Active 08-28 00:00: 00 Edita Seybold - Externa l Duodenal ulcer Duodenal ulcer Disease Active 08-28 00:00: 00 Edita Seybold - Externa l No known active problems No known active problems Disease [facility] Allergies, Adverse Reactions, Alerts Allergy Name Allergy Type Status Severity Reaction(s) Onset Date Inactive Date Treating Clinician Comments Source Aspirin Propensi ty to adverse reaction s Active 2021-05 00:00: 00 Edita Seybold - Externa l Aspirin Propensi ty to adverse reaction s Active Nausea and/or Vomiting 09-03 00:00: 00 [facility] AMOXICIL JOHN DRUG INGREDI Active Rash 09-03 00:00: 00 [facility] ASPIRIN DRUG INGREDI Active N/V 09-03 00:00: 00 [facility] IBUPROFE N DRUG INGREDI Active Rash 09-03 00:00: 00 [facility] CEPHALEX IN DRUG INGREDI Active Rash 09-03 00:00: 00 [facility] LATEX DRUG INGREDI Active Rash 09-03 00:00: 00 [facility] LEVOFLOX ACIN DRUG INGREDI Active Rash 09-03 00:00: 00 [facility] Amoxicil john Propensi ty to adverse reaction s Active Rash 09-03 00:00: 00 [facility] Aspirin Propensi ty to adverse reaction s Active Nausea And Vomiting 09-03 00:00: 00 [facility] Cephalex in Propensi ty to adverse reaction s Active Rash 09-03 00:00: 00 [facility] Ibuprofe n Propensi ty to adverse reaction s Active Rash 09-03 00:00: 00 [facility] Latex Propensi ty to adverse reaction s Active Rash 09-03 00:00: 00 [facility] Levoflox acin Propensi ty to adverse reaction s Active Rash 09-03 00:00: 00 [facility] Cephalex in Propensi ty to adverse reaction s Active Rash 09-03 00:00: 00 Edita johnson Latex Propensi ty to adverse reaction s Active Rash 09-03 00:00: 00 Edita Vieraa l Social History Social Habit Start Date Stop Date Quantity Comments Source Gender identity 2021-08-28 14:05:47 Identifies as female gender (finding) Edita Valdez - External History of tobacco use Cigarette Smoker [facility] Sexual orientation [facility] Exposure to SARS-CoV-2 (event) Not sure Edita solano Tobacco use and exposure 2023-03-25 00:00:00 2023-03-25 00:00:00 Smokeless tobacco non-user [facility] Alcoholic beverage intake 2023-03-25 00:00:00 2023-03-25 00:00:00 Ex-drinker (finding) [facility] History of Social function 2023-03-25 00:00:00 2023-03-25 00:00:00 [facility] Alcohol intake 2023-03-11 00:00:00 2023-03-11 00:00:00 Lifetime non-drinker (finding) Edita Valdez - External Sex assigned at 1975 00:00:00 1975 00:00:00 [facility] Smoking Status Start Date Stop Date Source Unknown if ever smoked [facility] Ex-smoker 2023-03-25 00:00:00 2023-03-25 00:00:00 [employer] Smokes tobacco daily 2023-01-23 00:00:00 Edita Luna Medications Ordered Medication Name Filled Medication Name Start Date Stop Date Current Medication? Ordering Clinician Indication Dosage Frequency Signature (SIG) Comments Components Source Tizanidine HCl 2 MG oral Tablet 2022-05 00:00: 00 Yes [id number] 2mg QD Take 1 tablet (2 mg total) by mouth nightly as needed for muscle spasms. Edita Fofana l Tizanidine HCl 2 MG oral Tablet 2022-05 00:00: 00 Yes [id number] 2mg QD Take 1 tablet (2 mg total) by mouth nightly as needed for muscle spasms. Edita johnson Tizanidine HCl 2 MG oral Tablet 02-10 00:00: 00 02-23 00:00 :00 No [id number] 2mg Q.40954121 [id number] 3D Take 1 tablet (2 mg total) by mouth every 8 hours as needed for muscle spasms. Edita johnson predniSONE (DELTASONE) 10 MG oral tablet 02-10 00:00: 00 02-23 00:00 :00 No [id number] 5mg Take 0.5 tablets (5 mg total) by mouth 2 times daily. Edita johnson Venlafaxine HCl 75 MG oral Tablet 01-23 15:00: 12 Yes 75mg Take 75 mg by mouth daily Edita johnson Pantoprazol e Sodium 40 MG oral Tablet Delayed Response 12-26 00:00: 00 Yes [id number] 40mg Take 1 tablet (40 mg total) by mouth daily Edita johnson hydrOXYzine HCl 10 MG oral Tablet 10-24 00:00: 00 Yes [id number] 10mg Q.[id number] 3D TAKE 1 TABLET (10 MG TOTAL) BY MOUTH 3 TIMES DAILY NEEDED FOR ITCHING OR ANXIETY Edita johnson Benzonatate (Tessalon Perles) 100 MG oral Capsule 07-10 00:00: 00 Yes [id number] 100mg Q.74232593 [id number] 3D Take 1 capsule (100 mg total) by mouth 3 times daily as needed for cough Edita johnson Benzonatate (Tessalon Perles) 100 MG oral Capsule 07-10 00:00: 00 01-23 00:00 :00 No [id number] 100mg Q.62365638 [id number] 3D Take 1 capsule (100 mg total) by mouth 3 times daily as needed for cough Edita johnson Pantoprazol e Sodium 40 MG oral Tablet Delayed Response 06-23 00:00: 00 Yes [id number] TAKE 1 TABLET BY MOUTH EVERY DAY Edita johnson Ondansetron HCl 4 MG oral Tablet 06-06 00:00: 00 Yes [id number] 4mg Q.44694840 [id number] 3D Take 1 tablet (4 mg total) by mouth every 8 hours as needed for nausea Edita johnson Ondansetron HCl 4 MG oral Tablet 06-06 00:00: 00 Yes [id number] 4mg Q.10088752 [id number] 3D Take 1 tablet (4 mg total) by mouth every 8 hours as needed for nausea Edita johnson Venlafaxine HCl 75 MG oral Tablet 06-03 14:10: 32 Yes 75mg Take 75 mg by mouth daily Edita johnson Venlafaxine HCl 75 MG oral Tablet 06-03 14:10: 32 Yes 75mg Take 75 mg by mouth daily Edita johnson PAXLOVID STANDARD (30) (300/100) Therapy Pack 06-03 00:00: 00 06-09 05:59 :00 No [id number] Take two 150 mg nirmatrelv ir (pink) tablets with one 100 mg ritonavir (white) tablet by mouth two times daily for 5 days Edita johnson Lansoprazol e 30 MG oral Delayed Release Capsule - 00:00: 00 Yes 30mg Take 30 mg by mouth every 12 hours Edita johnson Pseudoeph-B romphen-DM (Bromfed DM) 30-2-10 MG/5ML oral Syrup 2021-05 00:00: 00 Yes [id number] 10mL Q.25D Take 10 mL by mouth 4 times daily as needed Edita johnson Pseudoeph-B romphen-DM (Bromfed DM) 30-2-10 MG/5ML oral Syrup 2021-05 00:00: 00 Yes [id number] 10mL Q.25D Take 10 mL by mouth 4 times daily as needed Edita johnson Pseudoeph-B romphen-DM (Bromfed DM) 30-2-10 MG/5ML oral Syrup 2021-05 00:00: 00 Yes [id number] 10mL Q.25D Take 10 mL by mouth 4 times daily as needed Edita johnson Pseudoeph-B romphen-DM (Bromfed DM) 30-2-10 MG/5ML oral Syrup 2021-05 00:00: 00 01-23 00:00 :00 No [id number] 10mL Q.25D Take 10 mL by mouth 4 times daily as needed Edita johnson Azithromyci n 250 MG oral Tablet 2021-05 00:00: 00 05-04 05:59 :00 No [id number] Take 2 tablets by mouth on day 1 then 1 tablet by mouth daily for 4 days thereafter . Edita johnson Levothyroxi ne Sodium 50 MCG oral Tablet 2021-05 00:00: 00 Yes 50ug Take 1 tablet (50 mcg total) by mouth daily Edita johnson Levothyroxi ne Sodium 50 MCG oral Tablet 2021-05 00:00: 00 Yes 50ug Take 1 tablet (50 mcg total) by mouth daily Edita johnson Levothyroxi ne Sodium 50 MCG oral Tablet 2021-05 00:00: 00 Yes 50ug Take 1 tablet (50 mcg total) by mouth daily Edita Seybold - Externa l Levothyroxi ne Sodium 50 MCG oral Tablet 2021-05 00:00: 00 Yes 50ug Take 1 tablet (50 mcg total) by mouth daily Edita Vieraa elizabeth Levothyroxi ne Sodium 50 MCG oral Tablet 2021-05 00:00: 00 02-23 00:00 :00 No 50ug Take 1 tablet (50 mcg total) by mouth daily Edita johnson Eucrisa 2 % apply externally Ointment 2021-05 00:00: 00 Yes APPLY THIN COAT TO AFFECTED AREA TWICE A DAY Edita Trejo Externa elizabeth Eucrisa 2 % apply externally Ointment 2021-05 00:00: 00 Yes APPLY THIN COAT TO AFFECTED AREA TWICE A DAY Edita Vieraa elizabeth Eucrisa 2 % apply externally Ointment 2021-05 00:00: 00 Yes APPLY THIN COAT TO AFFECTED AREA TWICE A DAY Edita johnson Triamcinolo ne Acetonide 0.1 % apply externally Cream 2021-05 00:00: 00 Yes APPLY THIN COAT TO AFFECTED AREA TWICE A DAY Edita Trejo Externa elizabeth Triamcinolo ne Acetonide 0.1 % apply externally Cream 2021-05 00:00: 00 Yes APPLY THIN COAT TO AFFECTED AREA TWICE A DAY Edita Vieraa elizabeth Triamcinolo ne Acetonide 0.1 % apply externally Cream 2021-05 00:00: 00 Yes APPLY THIN COAT TO AFFECTED AREA TWICE A DAY Edita johnson hydrOXYzine HCl 10 MG oral Tablet 2021-05 00:00: 00 Yes [id number] 10mg Q.17949534 [id number] 3D TAKE 1 TABLET (10 MG TOTAL) BY MOUTH 3 TIMES DAILY NEEDED FOR ITCHING OR ANXIETY Edita Vieraa elizabeth hydrOXYzine HCl 10 MG oral Tablet 2021-05 00:00: 00 Yes [id number] 10mg Q.77201985 [id number] 3D TAKE 1 TABLET (10 MG TOTAL) BY MOUTH 3 TIMES DAILY NEEDED FOR ITCHING OR ANXIETY Edita johnson hydrOXYzine HCl 10 MG oral Tablet 2021-05 00:00: 00 Yes [id number] 10mg Q.34873058 [id number] 3D TAKE 1 TABLET (10 MG TOTAL) BY MOUTH 3 TIMES DAILY NEEDED FOR ITCHING OR ANXIETY Edita johnson Sodium Fluoride 5000 PPM 1.1 % dental Paste 2021-05 00:00: 00 Yes DISPENSE A PEA SIZE AMOUNT ON TOOTHBRUSH . BRUSH ONCE DAILY. DO NOT EAT OR DRINK FOR 30 MINUTES. Edita johnson Sodium Fluoride 5000 PPM 1.1 % dental Paste 2021-05 00:00: 00 Yes DISPENSE A PEA SIZE AMOUNT ON TOOTHBRUSH . BRUSH ONCE DAILY. DO NOT EAT OR DRINK FOR 30 MINUTES. Edita johnson Sodium Fluoride 5000 PPM 1.1 % dental Paste 2021-05 00:00: 00 Yes DISPENSE A PEA SIZE AMOUNT ON TOOTHBRUSH . BRUSH ONCE DAILY. DO NOT EAT OR DRINK FOR 30 MINUTES. Edita johnson Ursodiol 500 MG oral Tablet 2021-05 08:49: 49 03-12 00:00 :00 No 500mg Take 500 mg by mouth daily Edita johnson Venlafaxine HCl 75 MG oral Tablet 2021-05 08:45: 14 Yes 75mg Take 75 mg by mouth daily Edita johnson Venlafaxine HCl 75 MG oral Tablet 2021-05 08:45: 14 Yes 75mg Take 75 mg by mouth daily Edita johnson Gabapentin 100 MG oral Capsule 2021-05 00:00: 00 Yes [id number] 100mg Take 1 capsule (100 mg total) by mouth 3 times daily Edita johnson Gabapentin 100 MG oral Capsule 2021-05 00:00: 00 Yes [id number] 100mg Take 1 capsule (100 mg total) by mouth 3 times daily Edita johnson Gabapentin 100 MG oral Capsule 2021-05 00:00: 00 Yes [id number] 100mg Take 1 capsule (100 mg total) by mouth 3 times daily Edita johnson hydrOXYzine HCl 10 MG oral Tablet 2021-05 0 00:00: 00 Yes [id number] 10mg Q.69264047 [id number] 3D Take 1 tablet (10 mg total) by mouth 3 times daily as needed for itching or anxiety Edita johnson methylPREDN ISolone 4 MG oral Tablet Therapy Pack 2021-05 0 00:00: 00 Yes [id number] 1{dandre} Take 1 dandre by mouth See Admin Instructio ns Use as directed Edita johnson Gabapentin 100 MG oral Capsule 2021-05 00:00: 00 01-23 00:00 :00 No [id number] 100mg Take 1 capsule (100 mg total) by mouth 3 times daily Edita johnson methylPREDN ISolone 4 MG oral Tablet Therapy Pack 2021-05 00:00: 00 04-28 00:00 :00 No [id number] 1{dandre} Take 1 dandre by mouth See Admin Instructio ns Use as directed Edita johnson Pantoprazol e Sodium 40 MG oral Tablet Delayed Response 8 00:00: 00 Yes [id number] 40mg Take 1 tablet (40 mg total) by mouth daily Edita johnson Pantoprazol e Sodium 40 MG oral Tablet Delayed Response 8 00:00: 00 Yes [id number] 40mg Take 1 tablet (40 mg total) by mouth daily Edita johnson Pantoprazol e Sodium 40 MG oral Tablet Delayed Response 8 00:00: 00 Yes [id number] 40mg Take 1 tablet (40 mg total) by mouth daily Edita johnson Ondansetron (Zofran ODT) 4 MG oral TABLET DISPERSIBLE 5-20 00:00: 00 Yes [id number] 4mg Q.05537200 [id number] 3D Take 1 tablet (4 mg total) by mouth every 8 hours as needed for nausea Edita johnson Ondansetron (Zofran ODT) 4 MG oral TABLET DISPERSIBLE 5-20 00:00: 00 Yes [id number] 4mg Q.95071662 [id number] 3D Take 1 tablet (4 mg total) by mouth every 8 hours as needed for nausea Edita Seybold - Externa l Ondansetron (Zofran ODT) 4 MG oral TABLET DISPERSIBLE 20 00:00: 00 Yes [id number] 4mg Q.75779587 [id number] 3D Take 1 tablet (4 mg total) by mouth every 8 hours as needed for nausea Edita Seybold - Externa l Ondansetron (Zofran ODT) 4 MG oral TABLET DISPERSIBLE 0 20 00:00: 00 Yes [id number] 4mg Q.15796103 [id number] 3D Take 1 tablet (4 mg total) by mouth every 8 hours as needed for nausea Edita Seybold - Externa l Ondansetron (Zofran ODT) 4 MG oral TABLET DISPERSIBLE 10-04 00:00: 00 01-23 00:00 :00 No [id number] 4mg Q.94171481 [id number] 3D Take 1 tablet (4 mg total) by mouth every 8 hours as needed for nausea Edita Courtney - Externa l Sucralfate 1 g oral Tablet 09-24 00:00: 00 03-12 00:00 :00 No [id number] TAKE 1 TABLET BY MOUTH 4 TIMES DAILY. Edita Valdez - Externa l Celecoxib 200 MG oral Capsule 09-24 00:00: 00 03-12 00:00 :00 No [id number] 200mg TAKE 1 CAPSULE (200 MG TOTAL) BY MOUTH IN THE MORNING AND 1 CAPSULE (200 MG TOTAL) IN THE EVENING. Edita Barnettold - Externa l Ursodiol 500 MG oral Tablet 08-28 15:19: 50 Yes 500mg Take 500 mg by mouth daily Edita Valdez Cyclobenzap rine HCl 5 MG oral Tablet 08-28 00:00: 00 Yes [id number] 5mg Q.31589397 [id number] 3D Take 1 tablet (5 mg total) by mouth 3 times daily as needed for muscle spasms Edita Valdez Sucralfate 1 g oral Tablet 08-28 00:00: 00 Yes [id number] 1g Take 1 tablet (1 g total) by mouth 4 times daily Edita Valdez Tramadol HCl 50 MG oral Tablet 08-28 00:00: 00 Yes [id number] 50mg Q.25D Take 1 tablet (50 mg total) by mouth every 6 hours as needed for pain Edita Valdez Celecoxib (CeleBREX) 200 MG oral Capsule 08-28 00:00: 00 Yes [id number] 200mg Take 1 capsule (200 mg total) by mouth in the morning and 1 capsule (200 mg total) in the evening. Edita Valdez Cyclobenzap rine HCl 5 MG oral Tablet 08-28 00:00: 00 03-12 00:00 :00 No [id number] 5mg Q.03376073 [id number] 3D Take 1 tablet (5 mg total) by mouth 3 times daily as needed for muscle spasms Edita Trejo Externa l Tramadol HCl 50 MG oral Tablet 08-28 00:00: 00 03-12 00:00 :00 No [id number] 50mg Q.25D Take 1 tablet (50 mg total) by mouth every 6 hours as needed for pain Edita Fofana l Pantoprazol e Sodium 40 MG oral Tablet Delayed Response 06-14 00:00: 00 Yes [id number] 40mg Take 1 tablet (40 mg total) by mouth daily Edita Valdez Promethazin e-DM 6.25-15 MG/5ML oral Syrup 06-14 00:00: 00 Yes 5mL Q.17227768 [id number] 3D Take 5 mL by mouth every 8 hours as needed Edita Valdez Azithromyci n 250 MG oral Tablet 06-14 00:00: 00 Yes TAKE 2 TABLETS BY MOUTH TODAY, THEN TAKE 1 TABLET DAILY FOR 4 DAYS Edita Valdez Promethazin e-DM 6.25-15 MG/5ML oral Syrup 06-14 00:00: 00 03-12 00:00 :00 No 5mL Q.91337408 [id number] 3D Take 5 mL by mouth every 8 hours as needed Edita Trejo Externa l methylPREDN ISolone 4 MG oral Tablet Therapy Pack 1-06 00:00: 00 Yes 1{dandre} Take 1 dandre by mouth See Admin Instructio ns Use as directed Edita Valdez methylPREDN ISolone 4 MG oral Tablet Therapy Pack 1-06 00:00: 00 03-12 00:00 :00 No 1{dandre} Take 1 dandre by mouth See Admin Instructio ns Use as directed Edita Vieraa elizabeth Ursodiol 500 MG oral Tablet 2020-05 0-21 08:52: 54 Yes 500mg Take 500 mg by mouth daily Edita Valdez Zolpidem Tartrate 10 MG oral Tablet 2020-05 0-20 00:00: 00 Yes Edita Vieraa elizabeth Zolpidem Tartrate 10 MG oral Tablet 2020-05 0-20 00:00: 00 Yes Edita Vieraa elizabeth Zolpidem Tartrate 10 MG oral Tablet 2020-05 0-20 00:00: 00 Yes Edita Vieraa elizabeth Zolpidem Tartrate 10 MG oral Tablet 2020-05 0-20 00:00: 00 Yes Edita Trejo Externa elizabeth Zolpidem Tartrate 10 MG oral Tablet 2020-05 0-20 00:00: 00 Yes Edita Valdez Zolpidem Tartrate 10 MG oral Tablet 2020-05 0-20 00:00: 00 Yes Edita Valdez Zolpidem Tartrate 10 MG oral Tablet 2020-05 0-20 00:00: 00 Yes Edita Vieraa elizabeth Venlafaxine HCl 150 MG oral Capsule 24 Hour Sustained Release 2020-0 -15 00:00: 00 Yes Edita Trejo Externa elizabeth Venlafaxine HCl 150 MG oral Capsule 24 Hour Sustained Release 2020-0 -15 00:00: 00 Yes Edita Trejo Externa elizabeth Venlafaxine HCl 150 MG oral Capsule 24 Hour Sustained Release 2020-0 -15 00:00: 00 Yes Edita Valdez - Externa elizabeth Venlafaxine HCl 150 MG oral Capsule 24 Hour Sustained Release 2020-0 -15 00:00: 00 Yes Edita Seybold - Externa l Venlafaxine HCl 150 MG oral Capsule 24 Hour Sustained Release 2021-0 9-15 00:00: 00 Yes Edita Valdez Venlafaxine HCl 150 MG oral Capsule 24 Hour Sustained Release 1-0 9-15 00:00: 00 Yes Edita Valdez Venlafaxine HCl 150 MG oral Capsule 24 Hour Sustained Release 1-0 9-15 00:00: 00 Yes Edita Trejo Externa elizabeth Dexilant 60 MG oral Delayed Release Capsule 1-0 9-14 00:00: 00 Yes Edita aVldez Venlafaxine HCl 37.5 MG oral Capsule 24 Hour Sustained Release 2021-0 9-13 00:00: 00 Yes Edita Trejo Externa elizabeth Venlafaxine HCl 37.5 MG oral Capsule 24 Hour Sustained Release 1-0 9-13 00:00: 00 Yes Edita Valdez - Externa l Venlafaxine HCl 37.5 MG oral Capsule 24 Hour Sustained Release 1-0 9-13 00:00: 00 Yes Edita Trejo Externa l Venlafaxine HCl 37.5 MG oral Capsule 24 Hour Sustained Release 1-0 9-13 00:00: 00 Yes Edita Valdez - Externa l Venlafaxine HCl 37.5 MG oral Capsule 24 Hour Sustained Release 1-0 9-13 00:00: 00 Yes Edita Valdez Venlafaxine HCl 37.5 MG oral Capsule 24 Hour Sustained Release 1-0 9-13 00:00: 00 Yes Edita Valdze Venlafaxine HCl 37.5 MG oral Capsule 24 Hour Sustained Release 1-0 9-13 00:00: 00 Yes Edita Trejo Externa elizabeth Levothyroxi ne Sodium 50 MCG oral Tablet 1-0 8-24 00:00: 00 Yes Edita Valdez Levothyroxi ne Sodium 50 MCG oral Tablet 1-0 8-24 00:00: 00 Yes Edita Valdez Levothyroxi ne Sodium 50 MCG oral Tablet 1-0 8-24 00:00: 00 Yes Edita Trejo Externa elizabeth benzonatate (TESSALON PERLES) 100 mg capsule 2015-0 4-19 00:00: 00 Yes 100mg Take 1 capsule by mouth 3 (three) times daily as needed for Cough. [facility] Vital Signs Vital Name Observation Time Observation Value Comments S ource Body height 2023-03-25 16:19:00 157.5 cm [facility] Body weight 2023-03-25 16:19:00 72.576 kg [facility] BMI 2023-03-25 16:19:00 29.26 kg/m2 [facility] Body height 2023-03-11 13:02:00 152.4 cm Jenise ey Seybold - External Body weight 2023-03-11 13:02:00 71.487 kg Jenise ey Seybold - External BMI 2023-03-11 13:02:00 30.78 kg/m2 Jenise ey Seybold - External Systolic blood pressure 2023-02-23 15:39:00 131 mm[Hg] Edita Seybo ld - External Diastolic blood pressure 2023-02-23 15:39:00 93 mm[Hg] Edita Seybo ld - External Heart rate 2023-02-23 15:39:00 65 /min Kelse y Seybold - External Body temperature 2023-02-23 15:39:00 36.61 Nelda Edita Seybold - External Respiratory rate 2023-02-23 15:39:00 15 /min Edita Seybold - External Body height 2023-02-23 15:39:00 152.4 cm Jenise ey Seybold - External Body weight 2023-02-23 15:39:00 72.576 kg Jenise ey Seybold - External BMI 2023-02-23 15:39:00 31.25 kg/m2 Jenise ey Seybold - External Oxygen saturation in Arterial blood by Pulse oximetry 2023-02-23 15:39:00 99 /min Edita Seybo ld - External Systolic blood pressure 2023-01-23 19:59:00 129 mm[Hg] Edita Seybo ld - External Diastolic blood pressure 2023-01-23 19:59:00 87 mm[Hg] Edita Seybo ld - External Heart rate 2023-01-23 19:59:00 69 /min Kelse y Seybold - External Body temperature 2023-01-23 19:59:00 37.11 Nelda Edita Seybold - External Respiratory rate 2023-01-23 19:59:00 20 /min Edita Seybold - External Body height 2023-01-23 19:59:00 152.4 cm Jenise ey Seybold - External Body weight 2023-01-23 19:59:00 72.576 kg Jenise ey Seybold - External BMI 2023-01-23 19:59:00 31.25 kg/m2 Jenise ey Seybold - External Oxygen saturation in Arterial blood by Pulse oximetry 2023-01-23 19:59:00 99 /min Edita Seybo ld - External Systolic blood pressure 2022-06-03 20:05:00 120 mm[Hg] Edita Seybo ld - External Diastolic blood pressure 2022-06-03 20:05:00 86 mm[Hg] Edita Seybo ld - External Heart rate 2022-06-03 20:05:00 128 /min Kelse y Seybold - External Body temperature 2022-06-03 20:05:00 37.78 Nelda Edita Seybold - External Respiratory rate 2022-06-03 20:05:00 14 /min Edita Seybold - External Body height 2022-06-03 20:05:00 152.4 cm Jenise ey Seybold - External Body weight 2022-06-03 20:05:00 72.576 kg Jenise ey Seybold - External BMI 2022-06-03 20:05:00 31.25 kg/m2 Jenise ey Seybold - External Systolic blood pressure 2022-03-12 13:40:00 138 mm[Hg] Edita Seybo ld - External Diastolic blood pressure 2022-03-12 13:40:00 88 mm[Hg] Edita Seybo ld - External Heart rate 2022-03-12 13:40:00 105 /min Kelse y Seybold - External Body temperature 2022-03-12 13:40:00 35.5 Nelda Edita Seybold - External Respiratory rate 2022-03-12 13:40:00 15 /min Edita Seybold - External Body height 2022-03-12 13:40:00 152.4 cm Jenise ey Seybold - External Body weight 2022-03-12 13:40:00 71.668 kg Jenise ey Seybold - External BMI 2022-03-12 13:40:00 30.86 kg/m2 Jenise ey Seybold - External Systolic blood pressure 2021-08-28 20:16:00 138 mm[Hg] Edita Seybo ld Diastolic blood pressure 2021-08-28 20:16:00 94 mm[Hg] Edita Seybo ld Heart rate 2021-08-28 20:16:00 79 /min Kelse y Seybold Body temperature 2021-08-28 20:16:00 36.89 Nelda Edita Seybold Respiratory rate 2021-08-28 20:16:00 14 /min Edita Seybold Body height 2021-08-28 20:16:00 152.4 cm Jenise ey Seybold Body weight 2021-08-28 20:16:00 72.848 kg Jenise ey Seybold BMI 2021-08-28 20:16:00 31.37 kg/m2 Jenise ey Seybold Systolic blood pressure 2021-03-07 13:45:00 140 mm[Hg] Edita Seybo ld Diastolic blood pressure 2021-03-07 13:45:00 90 mm[Hg] Edita Seybo ld Heart rate 2021-03-07 13:45:00 79 /min Kelse y Seybold Body temperature 2021-03-07 13:45:00 36.28 Nelda Edita Seybold Respiratory rate 2021-03-07 13:45:00 16 /min Edita Seybold Body height 2021-03-07 13:45:00 152.4 cm Jenise ey Seybold Body weight 2021-03-07 13:45:00 71.215 kg Jenise ey Seybold BMI 2021-03-07 13:45:00 30.66 kg/m2 Jenise ey Seybold Procedures Procedure Date / Time Performed Performing Clinician Source LS RAPID STREP ASSAY-LAB TEST 2022-06-03 21:32:00 Catarina Guzman - External LS RAPID FLU ASSAY-LAB TEST 2022-06-03 21:32:00 Catarina Guzman Seybshaniqua - External [facility] PATIENT FINANCIAL POLICY 2021-07-12 20:13:59 Doctor Unassigned, [facility] NO SHOW OR MISSED APPOINTMENT POLICY ACKNOWLEDGEMENT 2021-07-12 20:13:47 Doctor Unassigned, [facility] CONSENT/REFUSAL FOR DIAGNOSIS AND TREATMENT 2021-07-12 20:13:34 Doctor Unassigned, [facility] ASSIGNMENT OF BENEFITS 2021-07-12 20:13:21 Docto r Unassigned, [facility] Encounters Start Date/Time End Date/Time Encounter Type Admission Type Attending [facility] Care Department Encounter ID Source 2023-04-26 00:00:00 2023-04-26 00:00:00 Outpatient CATARINA GUZMAN [id number] [facility] 2023-03-25 10:30:00 2023-03-25 11:06:42 Office Visit Андрей Lorenzo [address] [facility] [id number] [facility] 2023-03-24 00:00:00 2023-03-24 00:00:00 Outpatient KEYON AU [id number] [facility] 2023-03-13 13:00:00 2023-03-13 13:00:00 Outpatient EDITA SAGASTUME [id number] [facility] 2023-03-13 00:00:00 2023-03-13 00:00:00 Outpatient ELEANOR PIERSON [id number] [facility] 2023-03-11 09:30:00 2023-03-11 09:30:00 Outpatient EDITA SAGASTUME [id number] [facility] 2023-03-11 08:00:00 2023-03-11 08:00:00 [facility] [id number] [facility]23-03-11 00:00:00 2023-03-11 00:00:00 Outpatient ELEANOR PIERSON [id number] [facility] 2023-03-08 00:00:00 2023-03-08 00:00:00 Outpatient LAMINE SAUNDERS EDITA [id number] [facility] 2023-02-23 10:30:00 2023-02-23 10:30:00 Outpatient KEYON AUADRI SAGASTUME [id number] [facility] 2023-02-20 09:00:00 2023-02-20 09:00:00 Outpatient LAMINE SAUNDERS EDITA [id number] [facility] 2023-02-10 00:00:00 2023-02-10 00:00:00 Outpatient LAMINE SAUNDERS EDITA [id number] [facility] 2023-02-10 00:00:00 2023-02-10 00:00:00 Outpatient LAMINE SAUNDERS EDITA SAGASTUME [id number] [facility] 2023-02-10 00:00:00 2023-02-10 00:00:00 Outpatient LAMINE SAUNDERS EDITA SAGASTUME [id number] [facility] 2023-01-28 13:55:00 2023-01-28 13:55:00 Outpatient EDITA SAGASTUME [id number] [facility] 2023-01-28 13:50:00 2023-01-28 13:50:00 Outpatient EDITA SAGASTUME [id number] [facility] 2023-01-28 00:00:00 2023-01-28 00:00:00 Outpatient LAMINE SAUNDERS EDITA SAGASTUME [id number] [facility] 2023-01-27 15:45:00 2023-01-27 15:45:00 Outpatient EDITA SAGASTUME [id number] [facility] 2023-01-27 15:40:00 2023-01-27 15:40:00 Outpatient EDITA SAGASTUME [id number] [facility] 2023-01-27 15:35:00 2023-01-27 15:35:00 Outpatient EDITA SAGASTUME [id number] [facility] 2023-01-26 00:00:00 2023-01-26 00:00:00 Outpatient LAMINE SAUNDERS EDITA SAGASTUME [id number] [facility] 2023-01-23 15:55:00 2023-01-23 15:55:00 Outpatient BÁRBARA EDITA SAGASTUME [id number] [facility] 2023-01-23 15:00:00 2023-01-23 15:00:00 Outpatient LAMINE SAUNDERS EDITA SAGASTUME [id number] [facility] 2022-12-24 00:00:00 2022-12-24 00:00:00 Outpatient MADELINE SOUZA [id number] [facility] 2022-12-22 00:00:00 2022-12-22 00:00:00 Outpatient CATARINA GUZMAN [id number] [facility] 2022-10-23 00:00:00 2022-10-23 00:00:00 Outpatient MADELINE SOUZA [id number] [facility] 2022-07-10 12:35:00 2022-07-10 12:35:00 Outpatient LISA SU [id number] [facility] 2022-06-20 00:00:00 2022-06-20 00:00:00 Outpatient CATARINA GUZMAN [id number] [facility] 2022-06-06 00:00:00 2022-06-06 00:00:00 Outpatient CATARINA GUZMAN [id number] [facility] 2022-06-06 00:00:00 2022-06-06 00:00:00 Outpatient KEYON AU [id number] [facility] 2022-06-04 00:00:00 2022-06-04 00:00:00 Outpatient CATARINA GUZMAN [id number] [facility] 2022-06-03 13:45:00 2022-06-03 13:45:00 Outpatient CATARINA GUZMAN [id number] [facility] 2022-06-03 00:00:00 2022-06-03 00:00:00 Outpatient CATARINA GUZMAN [id number] [facility] 2022-06-03 00:00:00 2022-06-03 00:00:00 Outpatient CATARINA GUZMAN [id number] [facility] 2022-05-23 00:00:00 2022-05-23 00:00:00 Outpatient CATARINA GUZMAN EDITA EDITA [id number] [facility] 2022-04-28 13:30:00 2022-04-28 13:30:00 Outpatient CATARINA GUZMAN EDITA SAGASTUME [id number] [facility] 2022-04-28 00:00:00 2022-04-28 00:00:00 Outpatient CATARINA GUZMAN EDITA SAGASTUME [id number] [facility] 2022-04-28 00:00:00 2022-04-28 00:00:00 Outpatient CATARINA GUZMAN EDITA SAGASTUME [id number] [facility] 2022-04-19 00:00:00 2022-04-19 00:00:00 Outpatient CATARINA GUZMAN EDITA SAGASTUME [id number] [facility] 2022-03-20 00:00:00 2022-03-20 00:00:00 Outpatient HARLEYMADELINE EDITA SAGASTUME [id number] [facility] 2022-03-12 09:30:00 2022-03-12 09:30:00 Outpatient BÁRBARA EDITA SAGASTUME [id number] [facility] 2022-03-12 08:30:00 2022-03-12 08:30:00 Outpatient MADELINE SOUZA [id number] [facility] 2022-03-12 00:00:00 2022-03-12 00:00:00 Outpatient MADELINE SOUZA [id number] [facility] 2022-03-11 13:30:00 2022-03-11 13:30:00 Outpatient MADELINE SOZUA [id number] [facility] 2021-10-04 00:00:00 2021-10-04 00:00:00 Outpatient MADELINE SOUZA [id number] [facility] 2021-08-28 15:00:00 2021-08-28 15:00:00 Office Visit MADELINE SOUZA [id number] [facility] 2021-08-28 00:00:00 2021-08-28 00:00:00 Outpatient MADELINE SOUZA [id number] [facility] 2021-07-12 14:14:56 2021-07-12 23:59:00 Hospital Encounter Radiology [facility] [id number] [facility] 2021-07-12 14:14:56 2021-07-12 23:59:00 Outpatient R RADI[facility]Y [facility] [id number] [facility] 2021-06-14 00:00:00 2021-06-14 00:00:00 Outpatient CATARINA GUZMAN [id number] [facility] 2021-06-14 00:00:00 2021-06-14 00:00:00 Outpatient CATARINA GUZMAN [id number] [facility] 2021-06-09 00:00:00 2021-06-09 00:00:00 Outpatient CATARINA GUZMAN [id number] [facility] 2021-05-23 00:00:00 2021-05-23 00:00:00 Outpatient CATARINA GUZMAN [id number] [facility] 2021-05-20 15:15:00 2021-05-20 15:15:00 Outpatient CATARINA GUZMAN [id number] [facility] 2021-05-14 00:00:00 2021-05-14 00:00:00 Outpatient MADELINE SOUZA [id number] [facility] 2021-03-07 10:05:00 2021-03-07 10:05:00 Outpatient LAB90 EDITA SAGASTUME [id number] [facility] 2021-03-07 08:23:16 2021-03-07 08:53:16 Office Visit Catarina Guzman [place] [id number] [facility] Results Test Description Test Time Test Comments Results Result Co mments Source [facility] STREP [facility]-LAB [id number] 21:42:06* Test Item Value Reference Range Interpretation Comme nts STREP GP A AG, IA (test code = 07023-0) Negative Negative Infection due to Strep A cannot be ruled-out because the antigen present in the sample may be below the detection limit of the test. Specimen has been sent for confirmation of negative. Lab Interpretation (test code = 24046-6) Normal [facility]
[2023-05-15] MEDS ORDERED: NA CHLORIDE 0.9% 1,000 ML ONE ×2 (00:18→03:10)
[2023-05-15] MEDS ORDERED: ONDANSETRON 4 MG/2 ML VIAL ONE (00:18)
[2023-05-15] MEDS ORDERED: MORPHINE 4 MG/ML SYR ONE (00:18)
[2023-05-15] MEDS ORDERED: KETOROLAC 30 MG/ML INJ ONE (00:18)
[2023-05-15 01:39] LABS: Albumin 4.2 g/dL (3.4-5.0); Bilirubin Total 0.7 mg/dL (0.2-1.0); Potassium 3.8 mEq/L (3.5-5.1); Protein, Total 8.1 g/dL (6.4-8.2)
[2023-05-15 01:40] LABS: Specific Gravity >= 1.030 (1.005-1.030); Urine Bilirubin 1+ (Negative); Urine Blood 3+ (Negative); Urine Clarity Clear (Clear); Urine Color Yellow (Yellow); Urine Glucose Negative (Negative); Urine Protein 2+ (Negative); Urine Urobilinogen 0.2 mg/dL (0.2-1.0); Urine pH 5.5 (5.0-7.0)
[2023-05-15 01:40] LABS: Specific Gravity > 1.030 (1.005-1.030)
[2023-05-15 01:41] LABS: Urine Bacteria <20 /HPF (<20)
[2023-05-15 01:42] LABS: Calcium Oxalate Crystals- Ur Few /HPF (None Seen); Renal Epithelial <5 /HPF (None Seen)
[2023-05-15 01:43] LABS: Absolute Lymphocytes (CBC) 1.6 K/uL (0.7-4.9); Lymphocytes % 11.1 % (15.3-44.8); MCV 88.1 fL (80-100); MPV 8.6 fL (7.6-11.3); Platelets 71 thou/uL (152-406); RBC Red Blood Cell Count 4.65 M/uL (3.86-4.86)
[2023-05-15 02:10] LABS: Anisocytosis 1+; Blood Morphology Comment NOTED (NOT SEEN); Platelet Estimate DECR
[2023-05-15 02:25] LABS: White Blood Cell Scan OK (OK)
--- NOTE | 2023-05-15 02:38 | ER ---
Nurse's Notes [facility] Name: Lavern Acosta Age: 47 yrs Sex: Female : 1975 Arrival Date: 05/14/2023 Time: 23:49 Bed 8 Private MD: Diagnosis: Dysuria;Hydronephrosis with renal and ureteral calculous obstruction-4 mm upj;Elevated white blood cell count Presentation: 05/15 00:20 Chief complaint: Patient states: I am having right lower back pain that radiates to my jb4 RLQ. It started this morning and now it is my entire stomach. I have had kidney stones in the past and this is much worse. It feels like the stone is stuck. Every time I try to pee I vomit. Coronavirus screen: At this time, the client does not indicate any symptoms associated with coronavirus-19. Ebola Screen: No symptoms or risks identified at this time. Initial Sepsis Screen: Does the patient meet any 2 criteria? No. Patient's initial sepsis screen is negative. Does the patient have a suspected source of infection? No. Patient's initial sepsis screen is negative. Risk Assessment: Do you want to hurt yourself or someone else? Patient reports no desire to harm self or others. Onset of symptoms was May 15, 2023. Transition of care: patient was not received from another setting of care. 00:20 Method Of Arrival: Ambulatory jb4 00:20 Acuity: YOU 3 jb4 Historical: - Allergies: 00:23 Amoxicillin; jb4 00:23 Aspirin; jb4 00:23 Codeine; jb4 00:23 Ibuprofen; jb4 00:23 Keflex; jb4 00:23 Latex; jb4 00:23 Levaquin; jb4 00:23 PENICILLINS; jb4 - PMHx: 00:23 Anxiety; breast cancer; Depression; GERD; jb4 - PSHx: 00:23 Total abdominal hysterectomy; ALO Mastectomy (Total abdominal hysterectomy); jb4 - Immunization history:: Adult Immunizations up to date. - Social history:: Smoking status: Patient denies any tobacco usage or history of. Screenin:59 [facility] ED Fall Risk Assessment (Adult) History of falling in the last 3 months, tm6 including since admission No falls in past 3 months (0 pts). Abuse screen: Denies threats or abuse. Denies injuries from another. Nutritional screening: No deficits noted. Tuberculosis screening: No symptoms or risk factors identified. Assessment: 00:59 General: Appears uncomfortable, Behavior is calm, cooperative. Pain: Complains of pain tm6 in left low back, right low back and abdomen Pain currently is 10 out of 10 on a pain scale. Quality of pain is described as aching, sharp, shooting. Neuro: Level of Consciousness is awake, alert, obeys commands, Oriented to person, place, time, situation. Cardiovascular: Capillary refill < 3 seconds Patient's skin is warm and dry. Respiratory: Airway is patent Respiratory effort is even, unlabored, Respiratory pattern is regular, symmetrical. GI: Abd is non tender Reports lower abdominal pain. : Reports pain flank(s), with urination. EENT: No signs and/or symptoms were reported regarding the EENT system. Derm: No signs and/or symptoms reported regarding the dermatologic system. Musculoskeletal: No signs and/or symptoms reported regarding the musculoskeletal system. 01:24 Reassessment: Patient and/or family updated on plan of care and expected duration. Pain tm6 level reassessed. Patient is alert, oriented x 3, equal unlabored respirations, skin warm/dry/pink. 01:31 Pain: Complains of pain in right upper quadrant. tm6 03:05 Reassessment: Patient and/or family updated on plan of care and expected duration. Pain tm6 level reassessed. Patient is alert, oriented x 3, equal unlabored respirations, skin warm/dry/pink. 03:54 Reassessment: Patient appears in no apparent distress at this time. Patient states tm6 symptoms have improved. 03:55 Reassessment: upon discharge, instructed on need for getting a ride home and to not tm6 drive herself. Vital Signs: 00:20 BP 145 / 97; Pulse 81; Resp 16; Pulse Ox 100% on R/A; Weight 71.67 kg; Height 5 ft. 2 jb4 in. (R); Pain 10/10; 00:59 BP 144 / 83; Pulse 67; Pulse Ox 100% on R/A; tm6 01:24 BP 155 / 88; Pulse 50; Pulse Ox 100% ; Pain 3/10; tm6 03:05 BP 118 / 63; Pulse 56; Pulse Ox 96% on R/A; tm6 03:54 BP 144 / 98; Pulse 82; Pulse Ox 96% on R/A; tm6 00:20 Body Mass Index 28.90 (71.67 kg, 157.48 cm) jb4 00:20 Pain Scale: Adult jb4 01:24 Pain Scale: Adult tm6 ED Course: 00:02 Patient arrived in ED. gm2 00:10 Reagan Devlin MD is Attending Physician. lianet 00:16 Juana Berry RN is Primary Nurse. vc1 00:23 Triage completed. jb4 00:23 Arm band placed on right wrist. jb4 00:59 Patient has correct armband on for positive identification. Bed in low position. Call tm6 light in reach. Side rails up X2. Provided Education on: plan of care. Client placed on continuous cardiac and pulse oximetry monitoring. NIBP monitoring applied. Door closed. Noise minimized. Lights dimmed. 01:24 CT Stone Protocol In Process Unspecified. EDMS 02:37 Dave Sin MD is Referral Physician. lianet 03:54 No provider procedures requiring assistance completed. IV discontinued, intact, tm6 bleeding controlled, No redness/swelling at site. Pressure dressing applied. Administered Medications: 00:58 Drug: NS 0.9% IV 1000 ml IV at 1 bolus Per protocol; 1000 mL bolus Route: IV; Rate: 1 tm6 bolus; Site: left antecubital; 03:17 Follow up: IV Intake: 1000ml tm6 00:58 Drug: TORadol - Ketorolac IVP 15 mg IVP once Route: IVP; Site: left antecubital; tm6 03:17 Follow up: Response: No adverse reaction tm6 00:58 Drug: Ondansetron IVP 4 mg IVP once; over 2 minutes Route: IVP; Site: left antecubital; tm6 03:17 Follow up: Response: No adverse reaction tm6 00:58 Drug: morphine IVP or IV 4 mg IVP once over 4 mins Route: IVP; Infused Over: 4 mins; tm6 Site: left antecubital; 03:17 Follow up: Response: No adverse reaction tm6 03:16 Drug: Trimethoprim-Sulfamethoxazole PO (160 mg-800 mg (DS) 1 tablet PO once Route: PO; tm6 03:16 Drug: NS 0.9% IV 1000 ml IV at 1 bolus Per protocol; 1000 mL bolus Route: IV; Rate: 1 tm6 bolus; Site: left antecubital; 03:53 Follow up: Response: No adverse reaction; IV Intake: 1000ml tm6 Medication: 00:59 VIS not applicable for this client. tm6 Intake: 03:17 IV: 1000ml; Total: 1000ml. tm6 03:53 IV: 1000ml; Total: 2000ml. tm6 Outcome: 02:37 Discharge ordered by MD. martini 03:55 Discharged to home ambulatory, tm6 03:55 Condition: stable 03:55 Discharge instructions given to patient, Instructed on discharge instructions, follow up and referral plans. medication usage, Demonstrated understanding of instructions, follow-up care, medications, 03:56 Patient left the ED. tm6 Signatures: Dispatcher [employer] EDMS Reagan Devlin MD MD cha Bryson, James, RN RN jb4 Juana Berry RN RN 1 Whit Salvador 2 Abida Villalobos RN RN tm6
--- NOTE | 2023-05-15 02:38 | EDPHYS ---
Physician Documentation [facility] Name: Lavern Acosta Age: 47 yrs Sex: Female : 1975 Arrival Date: 05/14/2023 Time: 23:49 Bed 8 Private MD: OSBALDO Physician Reagan Devlin HPI: 05/15 01:08 This 47 yrs old Female presents to ER via Ambulatory with complaints of lianet Possible Kidney Stone, Abdominal Pain, Vomiting. 01:08 The patient presents to the emergency department with nausea, vomiting, that is lianet intermittent. Onset: The symptoms/episode began/occurred yesterday. Possible causes: unknown. The symptoms are aggravated by nothing. The symptoms are alleviated by nothing. Associated signs and symptoms: Pertinent positives: dysuria. Severity of symptoms: At their worst the symptoms were mild moderate in the emergency department the symptoms are unchanged. The patient has experienced similar episodes in the past, a few times. Historical: - Allergies: 00:23 Amoxicillin; jb4 00:23 Aspirin; jb4 00:23 Codeine; jb4 00:23 Ibuprofen; jb4 00:23 Keflex; jb4 00:23 Latex; jb4 00:23 Levaquin; jb4 00:23 PENICILLINS; jb4 - PMHx: 00:23 Anxiety; breast cancer; Depression; GERD; jb4 - PSHx: 00:23 Total abdominal hysterectomy; ALO Mastectomy (Total abdominal hysterectomy); jb4 - Immunization history:: Adult Immunizations up to date. - Social history:: Smoking status: Patient denies any tobacco usage or history of. ROS: 01:09 Constitutional: Negative for fever, chills, and weight loss, Eyes: Negative for injury, lianet pain, redness, and discharge, ENT: Negative for injury, pain, and discharge, Neck: Negative for injury, pain, and swelling, Cardiovascular: Negative for chest pain, palpitations, and edema, Respiratory: Negative for shortness of breath, cough, wheezing, and pleuritic chest pain, Abdomen/GI: Negative for abdominal pain, nausea, vomiting, diarrhea, and constipation, : Negative for injury, bleeding, discharge, and swelling, MS/Extremity: Negative for injury and deformity, Skin: Negative for injury, rash, and discoloration, Neuro: Negative for headache, weakness, numbness, tingling, and seizure, Allergy/Immunology: Negative for hives, rash, and allergies, Endocrine: Negative for neck swelling, polydipsia, polyuria, polyphagia, and marked weight changes, Hematologic/Lymphatic: Negative for swollen nodes, abnormal bleeding, and unusual bruising, : Back: Positive for pain at rest, flank pain, on the right, Exam: : Constitutional: This is a well developed, well nourished patient who is awake, alert, lianet and in no acute distress. Head/Face: Normocephalic, atraumatic. Eyes: Pupils equal round and reactive to light, extra-ocular motions intact. Lids and lashes normal. Conjunctiva and sclera are non-icteric and not injected. Cornea within normal limits. Periorbital areas with no swelling, redness, or edema. ENT: Nares patent. No nasal discharge, no septal abnormalities noted. Tympanic membranes are normal and external auditory canals are clear. Oropharynx with no redness, swelling, or masses, exudates, or evidence of obstruction, uvula midline. Mucous membranes moist. Neck: Trachea midline, no thyromegaly or masses palpated, and no cervical lymphadenopathy. Supple, full range of motion without nuchal rigidity, or vertebral point tenderness. No Meningismus. Chest/axilla: Normal chest wall appearance and motion. Nontender with no deformity. No lesions are appreciated. Cardiovascular: Regular rate and rhythm with a normal S1 and S2. No gallops, murmurs, or rubs. Normal PMI, no JVD. No pulse deficits. Respiratory: Lungs have equal breath sounds bilaterally, clear to auscultation and percussion. No rales, rhonchi or wheezes noted. No increased work of breathing, no retractions or nasal flaring. Abdomen/GI: Soft, non-tender, with normal bowel sounds. No distension or tympany. No guarding or rebound. No evidence of tenderness throughout. Skin: Warm, dry with normal turgor. Normal color with no rashes, no lesions, and no evidence of cellulitis. MS/ Extremity: Pulses equal, no cyanosis. Neurovascular intact. Full, normal range of motion. Neuro: Awake and alert, GCS 15, oriented to person, place, time, and situation. Cranial nerves II-XII grossly intact. Motor strength 5/5 in all extremities. Sensory grossly intact. Cerebellar exam normal. Normal gait. Psych: Awake, alert, with orientation to person, place and time. Behavior, mood, and affect are within normal limits. 01:09 Back: pain, that is moderate, of the right mid back and right low back, ROM is normal, normal spinal alignment noted, CVA tenderness, that is mild, is noted on the right, vertebral tenderness, is not appreciated, muscle spasm, is not present, Vital Signs: 00:20 BP 145 / 97; Pulse 81; Resp 16; Pulse Ox 100% on R/A; Weight 71.67 kg; Height 5 ft. 2 jb4 in. (R); Pain 10/10; 00:59 BP 144 / 83; Pulse 67; Pulse Ox 100% on R/A; tm6 01:24 BP 155 / 88; Pulse 50; Pulse Ox 100% ; Pain 3/10; tm6 03:05 BP 118 / 63; Pulse 56; Pulse Ox 96% on R/A; tm6 03:54 BP 144 / 98; Pulse 82; Pulse Ox 96% on R/A; tm6 00:20 Body Mass Index 28.90 (71.67 kg, 157.48 cm) jb4 00:20 Pain Scale: Adult jb4 01:24 Pain Scale: Adult tm6 MDM: 00:10 Patient medically screened. [facility] 01:10 Differential diagnosis: nephrolithiasis, pyelonephritis, UTI, Nonspecific abd pain, lianet gastritis, cholecystitis, pancreatitis, appendicitis, diverticulitis, viral gastroenteritis, gastroenteritis. Data reviewed: vital signs, nurses notes, lab test result(s), radiologic studies, CT scan. Consideration of Admission/Observation Escalation of care including admission/observation considered. I considered the following discharge prescriptions or medication management in the emergency department Medications were administered in the Emergency Department. See MAR. Independent interpretation of the following test(s) in the Emergency Department CT Scan: My interpretation is ct stone. Test considered but Not performed: Ultrasound no remal usg. 05/15 00:11 Order name: CBC with Diff; Complete Time: 02:36 [facility] 05/15 00:11 Order name: CMP; Complete Time: 02:36 [facility] 05/15 00:11 Order name: Lipase; Complete Time: 02:36 [facility] 05/15 00:11 Order name: Test, Urine; Complete Time: 02:36 [facility] 05/15 01:41 Order name: Urinalysis w/ reflexes; Complete Time: 02:36 EDMS 05/15 01:48 Order name: CBC Smear Scan; Complete Time: 02:36 EDNJ 05/15 00:11 Order name: CT Stone Protocol [facility] 05/15 00:11 Order name: IV Saline Lock; Complete Time: 00:32 lianet 05/15 00:11 Order name: Labs collected and sent; Complete Time: 00:32 lianet Administered Medications: 00:58 Drug: NS 0.9% IV 1000 ml IV at 1 bolus Per protocol; 1000 mL bolus Route: IV; Rate: 1 tm6 bolus; Site: left antecubital; 03:17 Follow up: IV Intake: 1000ml tm6 00:58 Drug: TORadol - Ketorolac IVP 15 mg IVP once Route: IVP; Site: left antecubital; tm6 03:17 Follow up: Response: No adverse reaction tm6 00:58 Drug: Ondansetron IVP 4 mg IVP once; over 2 minutes Route: IVP; Site: left antecubital; tm6 03:17 Follow up: Response: No adverse reaction tm6 00:58 Drug: morphine IVP or IV 4 mg IVP once over 4 mins Route: IVP; Infused Over: 4 mins; tm6 Site: left antecubital; 03:17 Follow up: Response: No adverse reaction tm6 03:16 Drug: Trimethoprim-Sulfamethoxazole PO (160 mg-800 mg (DS) 1 tablet PO once Route: PO; tm6 03:16 Drug: NS 0.9% IV 1000 ml IV at 1 bolus Per protocol; 1000 mL bolus Route: IV; Rate: 1 tm6 bolus; Site: left antecubital; 03:53 Follow up: Response: No adverse reaction; IV Intake: 1000ml tm6 Disposition Summary: 05/15/23 02:37 Discharge Ordered Notes: Location: Home lianet Problem: new lianet Symptoms: have improved lianet Condition: Stable lianet Diagnosis - Dysuria lianet - Hydronephrosis with renal and ureteral calculous obstruction - 4 mm upj lianet - Elevated white blood cell count lianet Followup: lianet - With: Private Physician - When: 2 - 3 days - Reason: Recheck today's complaints, Continuance of care, Re-evaluation by your physician Followup: lianet - With: Dave Sin MD - When: 2 - 3 days - Reason: Recheck today's complaints, Re-evaluation by your physician Discharge Instructions: - Discharge Summary Sheet lianet - Dysuria lianet - Kidney Stones lianet - Kidney Stones, Ocry-sw-Cqcm lianet - Hydronephrosis lianet - Dietary Guidelines to Help Prevent Kidney Stones lianet Forms: - Medication Reconciliation Form [facility] - Thank You Letter lianet - Antibiotic Education lianet - Prescription Opioid Use lianet - Patient Portal Instructions lianet - Leadership Thank You Letter lianet Prescriptions: - diclofenac sodium 50 mg Oral tablet, delayed release (enteric coated) - take 1 tablet ORAL route every 12 hours as needed for pain; 14 tablet; Refills: lianet 0, Product Selection Permitted - Flomax 0.4 mg Oral capsule - take 1 capsule ORAL route every 24 hours; 20 capsule; Refills: 0, Product lianet Selection Permitted - ondansetron 4 mg Oral Tablet,disintegrating - take 1 tablet ORAL route every 6-8 hours for 5 days as needed for nausea and lianet vomiting; 20 tablet; Refills: 0, Product Selection Permitted - Tramadol 50 mg Oral tablet - take 2 tablet ORAL route every 6-8 hours as needed; 24 tablet; Refills: 0, [facility] Product Selection Permitted - Bactrim DS 800-160 mg Oral Tablet - take 1 tablet ORAL route every 12 hours for 7 days; 14 tablet; Refills: 0, [facility] Product Selection Permitted Signatures: Dispatcher [employer] Reagan Avendano MD MD cha Bryson, James, RN RN jb4 Abida Villalobos RN RN tm6 Corrections: (The following items were deleted from the chart) 01:45 01:18 Urinalysis+U.LAB.BRZ ordered. RAJESH EDMS
[2023-05-15] MEDS ORDERED: SMZ./TMP. 800/160 MG TABLET ONE (03:07)
[2023-05-15 09:44] VITALS: BP 144/98; O2SAT 96
--- NOTE | 2023-05-15 18:08 | RAD REPORT ---
EXAM DESCRIPTION: CT Abdomen and Pelvis Without Intravenous Contrast CLINICAL HISTORY: The patient is 47 years old and is Female; right flank pain, hx of stones TECHNIQUE: Axial computed tomography images of the abdomen and pelvis without intravenous contrast. Sagittal and coronal reformatted images were created and reviewed. This CT exam was performed usi ng one or more of the following dose reduction techniques: automated exposure control, adjustment o f the mA and/or kV according to patient size, and/or use of iterative reconstruction technique. COMPARISON: No relevant prior studies available. FINDINGS: Lung bases: Unremarkable. No mass. No consolidation. ABDOMEN: Liver: Mild hepatomegaly. Gallbladder and bile ducts: Gallbladder is surgically absent. No ductal dilation. Pancreas: Unremarkable. No ductal dilation. Spleen: Unremarkable. No splenomegaly. Adrenals: Unremarkable. No mass. Kidneys and ureters: 4 mm right UPJ stone. Mild right hydronephrosis and perinephric stranding. Stomach and bowel: Scattered colonic diverticula. No obstruction. No mucosal thickening. PELVIS: Appendix: No findings to suggest acute appendicitis. Bladder: Unremarkable. Reproductive: Uterus is not seen. ABDOMEN and PELVIS: Intraperitoneal space: Unremarkable. No free air. No significant fluid collection. Bones/joints: No acute fracture. No dislocation. Soft tissues: Unremarkable. Vasculature: Unremarkable. No abdominal aortic aneurysm. Lymph nodes: Unremarkable. No enlarged lymph nodes. IMPRESSION: 4 mm right UPJ stone. Mild right hydronephrosis and perinephric stranding. Electronically signed by: Ranjeet Barron MD 05/15/2023 02:30 AM [employer] Due to temporary technical issues with the PACS/Fluency reporting system, reports are being signed by the in house radiologists without review as a courtesy to insure prompt reporting. The interpreting radiologist is fully responsible for the content of the report.
== END 2023-05-15 03:56 | disposition home or self-care (01) ==
LOC: ER 23:49
DX: N13.2 Hydronephrosis with renal and ureteral calculous obstruction (principal); R30.0 Dysuria; Z88.0 Allergy status to penicillin; Z88.1 Allergy status to other antibiotic agents; Z88.5 Allergy status to narcotic agent; Z88.6 Allergy status to analgesic agent; Z91.040 Latex allergy status
CPT/HCPCS: 74176; 76377; 96374; 96375; 99284

== ENCOUNTER 2023-09-08 21:01 | Observation (INO) | payer OTHER ==
--- OUTSIDE RECORDS SUMMARY | 2023-09-08 21:06 | XMS REPORT | Continuity of Care Document ---
Author Name Unknown Address [address] [facility] [address] [place] [address] [facility] thconnect Address [address] [facility] [address] [place] [address] Care Team Providers Care Assembler Motor Vehicle Name Role Phone Catarina Guzman Primary Care Physician + [phone] KEYON AU Attending Clinician Unavailable CASANDRA APGE Attending Clinician Unavaila ble 2, Adc Lab Attending Clinician Unavailable Casandra Elias Attending Clinician [phone] MADELINE SOUZA Attending Clinician Unavailable CATARINA GUZMAN Attending Clinician Андрей Levine MD Attending Clinician [phone] ELEANOR PIERSON Attending Clinician Unavaila LAMINE Florence Attending Clinician Unavailab le LAB90 Attending Clinician Unavailable LISA SU Attending Clinician Unavail able Radiology Attending Clinician Unavailable RADIOLOGY Attending Clinician Unavailable Catarina Guzman MD Attending Clinician [phone] MICHELLE FARRIS Admitting Clinician Unavailable Payers Payer Name Policy Type Policy Number Effective Date Expirati on Date Source CIGNA-CIGNA/PPO 2 [id number] 2021 00:00:00 Problems Condition Name Condition Details Condition Category Status Onset Date Resolution Date Last Treatment Date Treating Clinician Comments Source History of kidney stones History of kidney stones Disease Active 05-29 00:00: 00 Edita Seybold - Externa l Acute pain of left shoulder Acute pain of left shoulder Disease Active 2022-05 00:00: 00 Edita Seybold - Externa l Neck pain Neck pain Disease Active 2022-05 00:00: 00 Edita Seybold - Externa l DDD (degenerat edison disc disease), cervical DDD (degenerat edison disc disease), cervical Disease Active 2022-05 00:00: 00 Edita Seybold [...] active problems No known active problems Disease [facility] Allergies, Adverse Reactions, Alerts Allergy Name Allergy Type Status Severity Reaction(s) Onset Date Inactive Date Treating Clinician Comments Source Aspirin Propensi ty to adverse reaction s Active 2021-05 00:00: 00 Edita Seybold - Externa l Cephalex in Propensi ty to adverse reaction s Active Rash 09-03 00:00: 00 Edita Seybold - Externa l Latex Propensi ty to adverse reaction s Active Rash 09-03 00:00: 00 Edita Seybold - Externa l Amoxicil john Propensi ty to adverse reaction s Active Rash 09-03 00:00: 00 [facility] Aspirin Propensi ty to adverse reaction s Active Nausea and/or Vomiting 09-03 00:00: 00 [facility] AMOXICIL JOHN DRUG INGREDI Active Rash 09-03 00:00: 00 [facility] ASPIRIN DRUG INGREDI Active N/V 09-03 00:00: 00 [facility] IBUPROFE N DRUG INGREDI Active Rash 09-03 00:00: 00 [facility] CEPHALEX IN DRUG INGREDI Active Rash 09-03 00:00: 00 [facility] Aspirin Propensi ty to adverse reaction s Active Nausea And Vomiting 09-03 00:00: 00 [facility] LATEX DRUG INGREDI Active Rash 09-03 00:00: 00 [facility] LEVOFLOX ACIN DRUG INGREDI Active Rash 09-03 00:00: 00 [facility] Cephalex in Propensi ty to adverse reaction s Active Rash 09-03 00:00: 00 [facility] Ibuprofe n Propensi ty to adverse reaction s Active Rash 09-03 00:00: 00 [facility] Latex Propensi ty to adverse reaction s Active Rash 09-03 00:00: 00 [facility] Levoflox acin Propensi ty to adverse reaction s Active Rash 09-03 00:00: 00 [facility] Social History Social Habit Start Date Stop Date Quantity Comments Source Gender identity 2021-08-28 14:05:47 Identifies as female gender (finding) Edita Valdez - External History of tobacco use Cigarette Smoker [facility] Exposure to SARS-CoV-2 (event) Not sure Edita solano Tobacco use and exposure 2023-09-08 00:00:00 2023-09-08 00:00:00 User of smokeless tobacco [facility] History of Social function 2023-09-08 00:00:00 2023-09-08 00:00:00 [facility] Alcohol intake 2023-09-08 00:00:00 2023-09-08 00:00:00 Current drinker of alcohol (finding) [facility] Alcoholic beverage intake 2023-03-25 00:00:00 2023-03-25 00:00:00 Ex-drinker (finding) [facility] Sex assigned at 1975 00:00:00 1975 00:00:00 [facility] Smoking Status Start Date Stop Date Source Unknown if ever smoked [facility] Ex-smoker 2023-09-08 00:00:00 2023-09-08 00:00:00 [facility] Sm[facility] tobacco daily 2023-01-23 00:00:00 Edita Luna Medications Ordered Medication Name Filled Medication Name Start Date Stop Date Current Medication? Ordering Clinician Indication Dosage Frequency Signature (SIG) Comments Components Source tamsulosin 0.4 mg 24 hr capsule 09-05 00:00: 00 Yes .4mg Take 1 capsule by mouth in the morning and 1 capsule in the evening. [facility] acetaminoph en-codeine 300-30 mg tablet 09-05 00:00: 00 Yes 1{tbl} Take 1 tablet by mouth every 8 (eight) hours. [facility] ondansetron 4 mg tablet 09-05 00:00: 00 Yes TAKE 1 TABLET BY MOUTH EVERY 8 HOURS NEEDED [facility] acetaminoph en 500 mg tablet 07-05 00:00: 00 09-07 00:00 :00 No TAKE 2 TABLET BY MOUTH THREE TIMES A DAY NEEDED FOR PAIN/FEVER [facility] Ursodiol 300 MG oral Capsule 06-29 09:09: 14 Yes 300mg Take 1 capsule (300 mg total) by mouth as needed. Edita johnson Diclofenac Sodium 50 MG oral Tablet Delayed Response 2-12 00:00: 00 Yes [id number] 50mg QD Take 1 tablet (50 mg total) by mouth daily as needed (pain) for pain. Edita johnson Tramadol HCl (ULTRAM) 50 MG oral Tablet 2-12 00:00: 00 Yes [id number] 50mg QD Take 1 tablet (50 mg total) by mouth daily as needed for pain (severe pain). Edita johnson predniSONE (DELTASONE) 10 MG oral tablet 06-29 00:00: 00 Yes [id number] 10mg Take 1 tablet (10 mg total) by mouth daily. Edita johnson Cetirizine HCl (ZyrTEC Allergy) 10 MG oral Capsule 05-29 00:00: 00 Yes [id number] 10mg Take 1 capsule (10 mg total) by mouth daily. Edita johnson FLUTICASONE PROPIONATE, NASAL, 50 MCG/ACT nasal Suspension 05-29 00:00: 00 Yes [id number] 50ug Use 1 spray (50 mcg total) in each nostril daily. Edita johnson fluticasone propionate 50 mcg/actuati on nasal spray 05-29 00:00: 00 Yes 1{spray } Use 1 [place] in each nostril. [facility] methocarbam oL 500 mg tablet 05-29 00:00: 00 Yes 500mg Take 1 tablet by mouth. [facility] Docusate Sodium 100 MG oral Tablet 05-29 00:00: 00 06-29 00:00 :00 No [id number] 100mg Take 100 mg by mouth daily. Edita johnson Ondansetron (ZOFRAN) 4 MG oral TABLET DISPERSIBLE 2022-05 00:00: 00 Yes 4mg Q.[id number] 3D Take 1 tablet (4 mg total) by mouth every 8 hours as needed. Edita johnson Diclofenac Sodium 50 MG oral Tablet Delayed Response 2022-05 00:00: 00 06-29 00:00 :00 No 50mg Take 1 tablet (50 mg total) by mouth every 12 hours as needed for pain. Edita johnson Tramadol HCl (ULTRAM) 50 MG oral Tablet 2022-05 00:00: 00 06-29 00:00 :00 No 50mg Q.[id number] 3D Take 1 tablet (50 mg total) by mouth every 8 hours as needed for pain. Edita johnson hydrOXYzine 10 mg tablet 2022-05 2-11 00:00: 00 Yes 10mg Take 1 tablet by mouth. [facility] pantoprazol e 40 mg EC tablet 2022-05 1-14 00:00: 00 Yes 40mg Take 1 tablet by mouth. [facility] Tizanidine HCl 2 MG oral Tablet 2022-05 00:00: 00 05-29 00:00 :00 No [id number] 2mg QD Take 1 tablet (2 mg total) by mouth nightly as needed for muscle spasms. Edita johnson Tizanidine HCl 2 MG oral Tablet 2022-05 00:00: 00 Yes [id number] 2mg QD Take 1 tablet (2 mg total) by mouth nightly as needed for muscle spasms. Edita johnson Tizanidine HCl 2 MG oral Tablet 02-10 00:00: 00 02-23 00:00 :00 No [id number] 085564 2mg Q.12515257 [id number] 3D Take 1 tablet (2 mg total) by mouth every 8 hours as needed for muscle spasms. Edita johnson predniSONE (DELTASONE) 10 MG oral tablet 02-10 00:00: 00 02-23 00:00 :00 No [id number] 5mg Take 0.5 tablets (5 mg total) by mouth 2 times daily. Edita johnson Venlafaxine HCl 75 MG oral Tablet 01-23 15:00: 12 Yes 75mg Take 75 mg by mouth daily Edita johnson Pantoprazol e Sodium 40 MG oral Tablet Delayed Response 8-11 00:00: 00 Yes [id number] 40mg Take 1 tablet (40 mg total) by mouth daily Edita johnson hydrOXYzine HCl 10 MG oral Tablet 6 00:00: 00 Yes [id number] 10mg Q.63563450 [id number] 3D TAKE 1 TABLET (10 MG TOTAL) BY MOUTH 3 TIMES DAILY NEEDED FOR ITCHING OR ANXIETY Edita johnson Benzonatate (Tessalon Perles) 100 MG oral Capsule 07-10 00:00: 00 01-23 00:00 :00 No [id number] 100mg Q.79954715 [id number] 3D Take 1 capsule (100 mg total) by mouth 3 times daily as needed for cough Edita johnson Pantoprazol e Sodium 40 MG oral Tablet Delayed Response 06-23 00:00: 00 Yes [id number] TAKE 1 TABLET BY MOUTH EVERY DAY Edita johnson Ondansetron HCl 4 MG oral Tablet 06-06 00:00: 00 Yes [id number] 4mg Q.91554529 [id number] 3D Take 1 tablet (4 mg total) by mouth every 8 hours as needed for nausea Edita johnson Venlafaxine HCl 75 MG oral Tablet 06-03 14:10: 32 Yes 75mg Take 75 mg by mouth daily Edita johnson PAXLOVID STANDARD (30) (300/100) Therapy Pack 06-03 00:00: 00 06-09 05:59 :00 No [id number] Take two 150 mg nirmatrelv ir (pink) tablets with one 100 mg ritonavir (white) tablet by mouth two times daily for 5 days Edita johnson Lansoprazol e 30 MG oral Delayed Release Capsule 05-26 00:00: 00 Yes 30mg Take 30 mg by mouth every 12 hours Edita johnson Pseudoeph-B romphen-DM (Bromfed DM) 30-2-10 MG/5ML oral Syrup 2021-05 00:00: 00 01-23 00:00 :00 No [id number] 10mL Q.25D Take 10 mL by mouth 4 times daily as needed Edita johnson Azithromyci n 250 MG oral Tablet 2021-05 00:00: 00 05-04 05:59 :00 No [id number] Take 2 tablets by mouth on day 1 then 1 tablet by mouth daily for 4 days thereafter . Edita johnson Levothyroxi ne Sodium 50 MCG oral Tablet 2021-05 205 00:00: 00 02-23 00:00 :00 No 50ug [...] MG oral Tablet 2021-05 00:00: 00 Yes [id number] 10mg Q.88338687 [id number] 3D TAKE 1 TABLET (10 MG TOTAL) [...] 75 mg by mouth daily Edita johnson hydrOXYzine HCl 10 MG oral Tablet 2021-05 00:00: 00 Yes [id number] 10mg Q.36938101 [id number] 3D Take 1 tablet (10 mg total) by mouth 3 times daily as needed for itching or anxiety Edita johnson Gabapentin 100 MG oral Capsule 2021-05 00:00: 00 01-23 00:00 :00 No [id number] 100mg Take 1 capsule (100 mg total) by mouth 3 times daily Edita johnson methylPREDN ISolone 4 MG oral Tablet Therapy Pack 2021-05 00:00: 00 04-28 00:00 :00 No [id number] 1{dandre} Take 1 dandre by mouth See Admin Instructio ns Use as directed Edita johnson Pantoprazol e Sodium 40 MG oral Tablet Delayed Response 12-16 00:00: 00 Yes [id number] 40mg Take 1 tablet (40 mg total) by mouth daily Edita johnson Ondansetron (Zofran ODT) 4 MG oral TABLET DISPERSIBLE 10-04 00:00: 00 01-23 00:00 :00 No [id number] 4mg Q.16027351 [id number] 3D Take 1 tablet (4 mg total) by mouth every 8 hours as needed for nausea Edita johnson Sucralfate 1 g oral Tablet 09-24 00:00: 00 03-12 00:00 :00 No [id number] TAKE 1 TABLET BY MOUTH 4 TIMES DAILY. Edita johnson Celecoxib 200 MG oral Capsule 09-24 00:00: 00 03-12 00:00 :00 No [id number] 200mg TAKE 1 CAPSULE (200 MG TOTAL) BY MOUTH IN THE MORNING AND 1 CAPSULE (200 MG TOTAL) IN THE EVENING. Edita johnson Ursodiol 500 MG oral Tablet 08-28 15:19: 50 Yes 500mg Take 500 mg by mouth daily Edita Valdez Sucralfate 1 g oral Tablet 08-28 00:00: 00 Yes [id number] 1g Take 1 tablet (1 g total) by mouth 4 times daily Edita Valdez Celecoxib (CeleBREX) 200 MG oral Capsule 08-28 00:00: 00 Yes [id number] 200mg Take 1 capsule (200 mg total) by mouth in the morning and 1 capsule (200 mg total) in the evening. Edita Valdez Cyclobenzap rine HCl 5 MG oral Tablet 08-28 00:00: 00 03-12 00:00 :00 No [id number] 5mg Q.68731413 [id number] 3D Take 1 tablet (5 mg total) by mouth 3 times daily as needed for muscle spasms Edita johnson Tramadol HCl 50 MG oral Tablet 4- 00:00: 00 03-12 00:00 :00 No [id number] 50mg Q.25D Take 1 tablet (50 mg total) by mouth every 6 hours as needed for pain Edita johnson Pantoprazol e Sodium 40 MG oral Tablet Delayed Response 06-14 00:00: 00 Yes [id number] 40mg Take 1 tablet (40 mg total) by mouth daily Edita Valdez Azithromyci n 250 MG oral Tablet 06-14 00:00: 00 Yes TAKE 2 TABLETS BY MOUTH TODAY, THEN TAKE 1 TABLET DAILY FOR 4 DAYS Edita Valdez Promethazin e-DM 6.25-15 MG/5ML oral Syrup 06-14 00:00: 00 03-12 00:00 :00 No 5mL Q.56452334 [id number] 3D Take 5 mL by mouth every 8 hours as needed Edita johnson methylPREDN ISolone 4 MG oral Tablet Therapy Pack 1-06 00:00: 00 03-12 00:00 :00 No 1{dandre} Take 1 dandre by mouth See Admin Instructio ns Use as directed Edita johnson Ursodiol 500 MG oral Tablet 2020-05 0- 08:52: 54 Yes 500mg Take 500 mg by mouth daily Edita Valdez Zolpidem Tartrate 10 MG oral Tablet 2020-05 0-20 00:00: 00 Yes Edita johnson Venlafaxine HCl 150 MG oral Capsule 24 Hour Sustained Release -15 00:00: 00 Yes Edita johnson Dexilant 60 MG oral Delayed Release Capsule 9-14 00:00: 00 Yes Edita Valdez Venlafaxine HCl 37.5 MG oral Capsule 24 Hour Sustained Release 9-13 00:00: 00 Yes Edita johnson Levothyroxi ne Sodium 50 MCG oral Tablet 8-24 00:00: 00 Yes Edita johnson benzonatate (TESSALON PERLES) 100 mg capsule 2015-09-03 00:00: 00 Yes 100mg Take 1 capsule by mouth 3 (three) times daily as needed for Cough. [facility] Vital Signs Vital Name Observation Time Observation Value Comments Alfredo ambrosio Systolic blood pressure 2023-09-08 14:46:00 118 mm[Hg] [facility] Diastolic blood pressure 2023-09-08 14:46:00 89 mm[Hg] [facility] Heart rate 2023-09-08 14:46:00 73 /min [facility] Oxygen saturation in Arterial blood by Pulse oximetry 2023-09-08 14:46:00 99 /min [facility] Body weight 2023-09-08 14:42:00 67.132 kg [facility] BMI 2023-09-08 14:42:00 27.07 kg/m2 [facility] Body temperature 2023-09-08 14:42:00 36.06 Nelda [facility] Respiratory rate 2023-09-08 14:42:00 16 /min [facility] Body height 2023-09-08 14:42:00 157.5 cm [facility] Systolic blood pressure 2023-06-29 15:06:00 120 mm[Hg] Edita ybo ld - External Diastolic blood pressure 2023-06-29 15:06:00 78 mm[Hg] Edita ybo ld - External Heart rate 2023-06-29 15:06:00 63 /min Kelse y Seybold - External Body temperature 2023-06-29 15:06:00 36.28 Nelda Edita Seybold - External Respiratory rate 2023-06-29 15:06:00 20 /min Edita Seybold - External Body height 2023-06-29 15:06:00 152.4 cm Jenise ey Seybold - External Body weight 2023-06-29 15:06:00 68.04 kg Jenise ey Seybold - External BMI 2023-06-29 15:06:00 29.29 kg/m2 Jenise ey Seybold - External Oxygen saturation in Arterial blood by Pulse oximetry 2023-06-29 15:06:00 100 /min Edita Seybo ld - External Systolic blood pressure 2023-05-29 16:47:00 130 mm[Hg] Edita Pachecoybo ld - External Diastolic blood pressure 2023-05-29 16:47:00 78 mm[Hg] Edita Pachecoybo ld - External Heart rate 2023-05-29 16:47:00 69 /min Renatose y Seybold - External Body temperature 2023-05-29 16:47:00 36.83 Nelda Edita Seybold - External Respiratory rate 2023-05-29 16:47:00 14 /min Edita Seybold - External Body height 2023-05-29 16:47:00 152.4 cm Jenise ey Seybold - External Body weight 2023-05-29 16:47:00 74.39 kg Jenise ey Seybold - External BMI 2023-05-29 16:47:00 32.03 kg/m2 Jenise ey Seybold - External Oxygen saturation in Arterial blood by Pulse oximetry 2023-05-29 16:47:00 98 /min Edita Pachecoybo ld - External Body height 2023-03-25 16:19:00 157.5 cm [facility] [...] blood pressure 2023-02-23 15:39:00 131 mm[Hg] Edita Pachecoybo ld - External Diastolic blood pressure 2023-02-23 15:39:00 93 mm[Hg] Ediat Pachecoybo ld - External Heart rate 2023-02-23 15:39:00 65 /min Renatose y Seybold - External Body temperature 2023-02-23 [...] ld Heart rate 2021-03-07 13:45:00 79 /min Ele Valdez Body temperature 2021-03-07 13:45:00 36.28 Nelda Edita Valdez Respiratory rate 2021-03-07 13:45:00 16 /min Edita Valdez Body height 2021-03-07 13:45:00 152.4 cm Jenise Valdez Body weight 2021-03-07 13:45:00 71.215 kg Jensie Valdez BMI 2021-03-07 13:45:00 30.66 kg/m2 Jenise Valdez Procedures Procedure Date / Time Performed Performing Clinician Source HARMONY,POST-VOID RES,US,NON-IMAGING 2023-09-08 15:13:00 Casandra Page [facility] POCT URINALYSIS AUTO 2023-09-08 15:13:00 Alexander Page [facility] LS RAPID STREP ASSAY-LAB TEST 2022-06-03 21:32:00 Catarina Guzman - External LS RAPID FLU ASSAY-LAB TEST 2022-06-03 21:32:00 Catarina Guzman - External [facility] PATIENT FINANCIAL POLICY 2021-07-12 20:13:59 Doctor Unassigned, [place] [facility] NO SHOW OR MISSED APPOINTMENT POLICY ACKNOWLEDGEMENT 2021-07-12 20:13:47 Doctor Unassigned, [place] [facility] CONSENT/REFUSAL FOR DIAGNOSIS AND TREATMENT 2021-07-12 20:13:34 Doctor Unassigned, [place] [facility] ASSIGNMENT OF BENEFITS 2021-07-12 20:13:21 Docto r Unassigned, [place] [facility] Encounters Start Date/Time End Date/Time Encounter Type Admission Type Attending [facility] Care Facility Care Department Encounter ID Source 2023-09-25 08:30:00 2023-09-25 08:30:00 Outpatient KEYON AU [id number] Edita Valdez 2023-09-08 11:15:00 2023-09-08 11:15:00 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, Adc Lab Casandra Page [facility] [id number] [facility] 2023-09-08 09:30:00 2023-09-08 10:32:53 Outpatient R CASANDRA PAGE [facility] [id number] [facility] 2023-09-08 09:30:00 2023-09-08 10:32:53 Office Visit Casandra Page [facility] [id number] [facility] 2023-09-01 00:00:00 2023-09-01 00:00:00 Outpatient KEYON AU [id number] [facility] 2023-09-01 00:00:00 2023-09-01 00:00:00 Outpatient KEYON AU [id number] [facility] 2023-08-31 00:00:00 2023-08-31 00:00:00 Outpatient KEYON AU [id number] [facility] 2023-07-02 00:00:00 2023-07-02 00:00:00 Outpatient MADELINE SOUZA [id number] [facility] 2023-06-29 09:15:00 2023-06-29 09:15:00 Outpatient KEYON AU [id number] [facility] 2023-06-04 13:30:00 2023-06-04 13:30:00 Outpatient CATARINA GUZMAN [id number] [facility] 2023-05-29 10:45:00 2023-05-29 10:45:00 Outpatient KEYON AU [id number] [facility] 2023-04-26 00:00:00 2023-04-26 00:00:00 Outpatient CATARINA GUZMAN [id number] [facility] 2023-03-25 10:30:00 2023-03-25 11:06:42 Office Visit Андрей Lorenzo [facility] [address] [id number] [facility] 2023-03-24 00:00:00 2023-03-24 00:00:00 Outpatient KEYON AU [id number] [facility] 2023-03-13 13:00:00 2023-03-13 13:00:00 Outpatient EDITA SAGASTUME [id number] [facility] 2023-03-13 00:00:00 2023-03-13 00:00:00 Outpatient KENNA ELEANOR SAGASTUME [id number] [facility] 2023-03-11 09:30:00 2023-03-11 09:30:00 Outpatient EDITA SAGASTUME [id number] [facility] 2023-03-11 08:00:00 2023-03-11 08:00:00 Outpatient KENNA, ELEANOR SAGASTUME [id number] [facility] 2023-03-11 00:00:00 2023-03-11 00:00:00 Outpatient KENNA, ELEANOR SAGASTUME [id number] [facility] 2023-03-08 00:00:00 2023-03-08 00:00:00 Outpatient LAMINE SAUNDERS [id number] [facility] 2023-02-23 10:30:00 2023-02-23 10:30:00 Outpatient KEYON AU [id number] [facility] 2023-02-20 09:00:00 2023-02-20 09:00:00 Outpatient LAMINE SAUNDERS [id number] [facility] 2023-02-10 00:00:00 2023-02-10 00:00:00 Outpatient LAMINE SAUNDERS [id number] [facility] 2023-02-10 00:00:00 2023-02-10 00:00:00 Outpatient LAMINE SAUNDERS [id number] [facility] 2023-02-10 00:00:00 2023-02-10 00:00:00 Outpatient LAMINE SAUNDERS EDITA [id number] [facility] 2023-01-28 13:55:00 2023-01-28 13:55:00 Outpatient EDITA EDITA [id number] [facility] 2023-01-28 13:50:00 2023-01-28 13:50:00 Outpatient EDITA EDITA [id number] [facility] 2023-01-28 00:00:00 2023-01-28 00:00:00 Outpatient LAMINE SAUNDERS EDITA [id number] [facility] 2023-01-27 15:45:00 2023-01-27 15:45:00 Outpatient EDITA EDITA [id number] [facility] 2023-01-27 15:40:00 2023-01-27 15:40:00 Outpatient EDITA SAGASTUME [id number] [facility] 2023-01-27 15:35:00 2023-01-27 15:35:00 Outpatient EDITA EDITA [id number] [facility] 2023-01-26 00:00:00 2023-01-26 00:00:00 Outpatient LAMINE SAUNDERS EDITA [id number] [facility] 2023-01-23 15:55:00 2023-01-23 15:55:00 Outpatient LABKenroy EDITA SAGASTUME [id number] [facility] 2023-01-23 15:00:00 2023-01-23 15:00:00 Outpatient LAMINE SAUNDERS EDITA SAGASTUME [id number] [facility] 2022-12-24 00:00:00 2022-12-24 00:00:00 Outpatient MADELINE SOUZA [id number] [facility] 2022-12-22 00:00:00 2022-12-22 00:00:00 Outpatient CATARINA GUZMAN [id number] [facility] 2022-10-23 00:00:00 2022-10-23 00:00:00 Outpatient MADELINE SOUZA [id number] [facility] 2022-07-10 12:35:00 2022-07-10 12:35:00 Outpatient GEORGESLISA EDITA SAGASTUME [id number] [facility] 2022-06-20 00:00:00 2022-06-20 00:00:00 Outpatient MEGAN, CATARINA SAGASTUME [id number] [facility] 2022-06-06 00:00:00 2022-06-06 00:00:00 Outpatient MEGAN, CATARINA SAGASTUME [id number] [facility] 2022-06-06 00:00:00 2022-06-06 00:00:00 Outpatient PREZAS, KEYON SAGASTUME [id number] [facility] 2022-06-04 00:00:00 2022-06-04 00:00:00 Outpatient MEGAN, CATARINA SAGASTUME [id number] [facility] 2022-06-03 13:45:00 2022-06-03 13:45:00 Outpatient MEGAN, CATARINA SAGASTUME [id number] [facility] 2022-06-03 00:00:00 2022-06-03 00:00:00 Outpatient MEGAN, CATARINA SAGASTUME [id number] [facility] 2022-06-03 00:00:00 2022-06-03 00:00:00 Outpatient CATARINA GUZMAN [id number] [facility] 2022-05-23 00:00:00 2022-05-23 00:00:00 Outpatient CATARINA GUZMAN [id number] [facility] 2022-04-28 13:30:00 2022-04-28 13:30:00 Outpatient CATARINA GUZMAN [id number] [facility] 2022-04-28 00:00:00 2022-04-28 00:00:00 Outpatient CATARINA GUZMAN [id number] [facility] 2022-04-28 00:00:00 2022-04-28 00:00:00 Outpatient CATARINA GUZMAN [id number] [facility] 2022-04-19 00:00:00 2022-04-19 00:00:00 Outpatient CATARINA GUZMAN EDITA SAGASTUME [id number] [facility] 2022-03-20 00:00:00 2022-03-20 00:00:00 Outpatient MADELINE SOUZA EDITA SAGASTUME [id number] [facility] 2022-03-12 09:30:00 2022-03-12 09:30:00 Outpatient BÁRBARA EDITA SGAASTUME [id number] [facility] 2022-03-12 08:30:00 2022-03-12 08:30:00 Outpatient MADELINE SOUZA EDITA SAGASTUME [id number] [facility] 2022-03-12 00:00:00 2022-03-12 00:00:00 Outpatient MADELINE SOUZA EDITA SAGASTUME [id number] [facility] 2022-03-11 13:30:00 2022-03-11 13:30:00 Outpatient MADELINE SOUZA EDITA SAGASTUME [id number] [facility] 2021-10-04 00:00:00 2021-10-04 00:00:00 Outpatient MADELINE SOUZA EDITA EDITA [id number] [facility] Valdez 2021-08-28 15:00:00 2021-08-28 15:00:00 Office Visit [facility]OU[facility] [id number] Edita Valdez 2021-08-28 00:00:00 2021-08-28 00:00:00 Outpatient [facility] [id number] Edita Pachecoshaniqua 2021-07-12 14:14:56 2021-07-12 23:59:00 Hospital Encounter [facility] [facility] [id number] [facility] 2021-07-12 14:14:56 2021-07-12 23:59:00 Outpatient R RADIOLOGY [facility] [id number] [facility] 2021-06-14 00:00:00 2021-06-14 00:00:00 Outpatient KIARA GUZMANGARY SAGASTUME [id number] Edita Valdez 2021-06-14 00:00:00 2021-06-14 00:00:00 Outpatient CATARINA GUZMAN [id number] Edita Courtney 2021-06-09 00:00:00 2021-06-09 00:00:00 Outpatient MEGAN CATARINA SAGASTUME [id number] Edita Courtney 2021-05-23 00:00:00 2021-05-23 00:00:00 Outpatient CATARINA GUZMAN [id number] Edita Courtney 2021-05-20 15:15:00 2021-05-20 15:15:00 Outpatient CATARINA GUZMAN [id number] Editalópez Valdez 2021-05-14 00:00:00 2021-05-14 00:00:00 Outpatient MADELINE SOUZA EDITA SAGASTUME [id number] Edita Valdez 2021-03-07 10:05:00 2021-03-07 10:05:00 Outpatient LAB90 EDITA SAGASTUME [id number] Edita Valdez 2021-03-07 08:23:16 2021-03-07 08:53:16 Office Visit Megan Catarina Wheeler [place] [id number] [facility] Results Test Description Test Time Test Comments Results Result Co mments Source [facility]ID RES,US,[id number] 15:13:00* Test Item Value Reference Range Interpretation Comme nts PVR (URINE VOLUME) (test code = 5193) 85 ml 0-100 [facility] Urinalysis, [id number] 15:13:00 * Test Item Value Reference Range Interpretation Comme nts POCT U SP GRAV (test code = 3255) 1.025 mg/dl 1.005-1.025 POCT PH U (test code = 3254) 5.5 mg/dl 5-8 POCT U LEUK EST (test code = 3263) small Negative - Negative A POCT U NIT (test code = 3262) negative Negative - Negati ve POCT U PROT (test code = 3259) negative Negative - Negative POCT U GLU (test code = 3256) negative Negative - Negati ve POCT U KETONE (test code = 3258) negative Negative - Negative POCT U UROBILI (test code = 3260) 0.2 mg/dl 0.2-1 POCT U BILI (test code = 3261) negative Negative - Negative POCT U BLD (test code = 3257) moderate Negative - Negati ve A POCT U COLOR (test code = 3266) yellow POCT U APPEAR (test code = 3267) clear Lab Interpretation (test cod e = 99912-8) Abnormal [facility],POST-VOID RES,US,[id number] 15:13:00* Test Item Value Reference Range Interpretation Comme nts PVR (URINE VOLUME) (test code = 5193) 85 ml 0-100 [facility] RAPID FLU ASSAY-LAB [id number] 21:46:59 * Test Item Value Reference Range Interpretation Comme nts INFLUENZA B AG, EIA (test co de = 04097-7) Negative Negative Lab Interpretation (test cod e = 75355-3) Normal Edita Valdez [facility] RAPID STREP ASSAY-LAB [id number] 21:42:06* Test Item Value Reference Range Interpretation Comme nts STREP GP A AG, IA (test code = 79133-5) Negative Negative Infection due to Strep A cannot be ruled-out because the antigen present in the sample may be below the detection limit of the test. Specimen has been sent for confirmation of negative. Lab Interpretation (test code = 53088-5) Normal Edita [facility] Notes Date/Time Note Provider Source 2023-09-08 11:15:00 [id number]:15:00F ormatting of this note is different from the original.Images from the original note were not included.Venipuncture collection performed by clean technique on the left anticubitus. Total of 1 attempts were made. Slight pressure and a bandage/dressing were applied to the site(s). The patient experienced no complications. The following specimens were processed according to instructions and sent to [facility] laboratories per lab order on 09/08/2023:LT BLUE 1SST 2REDLAV 1PPTDK GREEN (LiHep)DK GREEN (SodH)GRAYDK BLUE (K2)DK BLUE (S)ACDBlood CultureNIPT/NTDOnly blood work to be done today, pt will bring back 24hr urine at later date 51850-8Yjplh [id number]:54:40Nurse [id number] for patient [id number] NoteLNNARRATIVEFormatted C-CDA narrative textUTROOSEVELT [facility] - [address] [id number]:54:401.2.840 .[id number]. [id number] [facility]"
[2023-09-08] MEDS ORDERED: ONDANSETRON 4 MG/2 ML VIAL ONE (21:37)
[2023-09-08] MEDS ORDERED: NA CHLORIDE 0.9% 1,000 ML ONE (21:38)
[2023-09-08] MEDS ORDERED: MORPHINE 4 MG/ML SYR ONE (21:38)
[2023-09-08] MEDS ORDERED: FAMOTIDINE 20 MG/2 ML VIAL IV ONE (21:38)
[2023-09-08 22:03] LABS: Absolute Basophils 0.1 K/uL (0-0.5); Absolute Eosinophils 0.1 K/uL (0-0.5); Absolute Lymphocytes (CBC) 2.2 K/uL (0.7-4.9); Absolute Monocytes 0.3 K/uL (0.1-1.3); Absolute Neutrophil 2.8 K/uL (1.8-8.0); Basophils % 0.9 % (0-1.3); Eosinophils % 1.8 % (0-4.4); Hematocrit 41.5 % (36.0-45.0); Hemoglobin 14.5 g/dL (12.0-15.0); Lymphocytes % 40.6 % (15.3-44.8); MCH 30.8 pg (27.0-35.0); MCHC 34.9 g/dL (32.0-36.0); MCV 88.3 fL (80-100); MPV 8.6 fL (7.6-11.3); Monocytes % 6.2 % (3.3-12.3); Neutrophils % 50.5 % (41.7-73.7); Nucleated Red Blood Cells % 0.2 % (0-0); Platelets 248 thou/uL (152-406); Red Cell Distribution Width 12.7 % (12.1-15.2)
[2023-09-08] MEDS ORDERED: LIDOCAINE VISCOUS 2% 10ML ORAL SOLN ONE (22:12)
[2023-09-08] MEDS ORDERED: MAGNES/ALUMIN/SIMET 30ML UCUP ONE (22:12)
[2023-09-08 22:13] LABS: Specific Gravity 1.021 (1.005-1.030); Sqamous Epithelial <5 /HPF (None Seen); Urine Bacteria None Seen /HPF (<20); Urine Bilirubin NEGATIVE (Negative); Urine Blood 2+ (Negative); Urine Clarity Turbid (Clear); Urine Color Light-Yellow (Yellow); Urine Crystals Unidentified Few /HPF (None Seen); Urine Culture Reflex Order NOT NEEDED; Urine Glucose NEGATIVE (Negative); Urine Ketones NEGATIVE (Negative); Urine Microscopic Reflex YN ORDER UMIC; Urine Mucus Slight /HPF (None Seen); Urine Nitrite NEGATIVE (Negative); Urine Protein TRACE (Negative); Urine RBC >50 /HPF (None Seen); Urine Urobilinogen Normal (Normal); Urine WBC <5 /HPF (<5)
[2023-09-08 22:17] LABS: Albumin 4.1 g/dL (3.4-5.0); Albumin/Globulin Ratio 1.1 (1.1-1.8); Anion Gap 9.9 mEq/L (5.0-15.0); Bilirubin Total 0.8 mg/dL (0.2-1.0); Globulin 3.8 g/dL (2.3-3.5); Potassium 3.9 mEq/L (3.5-5.1); Protein, Total 7.9 g/dL (6.4-8.2)
[2023-09-09] MEDS ORDERED: MORPHINE 4 MG/ML SYR ONE (00:15)
--- NOTE | 2023-09-09 00:27 | ER ---
Nurse's Notes [facility] Name: Lavern Acosta Age: 47 yrs Sex: Female : 1975 Arrival Date: 09/08/2023 Time: 21:01 Bed 3 Private MD: Catarina Hatch Diagnosis: Upper abdominal pain, unspecified Presentation: 09/07 21:12 Chief complaint: Patient states: RUQ abdominal pain onset a couple hours ago. Pt states cm10 that the pain radiates to her back. Pt reports nausea. Pt describes the pain as a sharp burning pain. Coronavirus screen: Client denies travel out of the [place] in the last 14 days. At this time, the client does not indicate any symptoms associated with coronavirus-19. Ebola Screen: Patient denies travel to an Ebola-affected area in the 21 days before illness onset. No symptoms or risks identified at this time. Initial Sepsis Screen: Does the patient meet any 2 criteria? No. Patient's initial sepsis screen is negative. Does the patient have a suspected source of infection? No. Patient's initial sepsis screen is negative. Risk Assessment: Do you want to hurt yourself or someone else? Patient reports no desire to harm self or others. Onset of symptoms was September 08, 2023. 21:12 Method Of Arrival: Ambulatory cm10 21:12 Acuity: YOU 3 cm10 Triage Assessment: 21:14 General: Appears uncomfortable, Behavior is cooperative. Pain: Complains of pain in cm10 right upper quadrant Pain radiates to back Pain currently is 8 out of 10 on a pain scale. Quality of pain is described as burning, sharp. Neuro: No deficits noted. Level of Consciousness is awake, alert, obeys commands, Oriented to person, place, time, situation. 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 - Infectious Disease History:: Denies. - Social history:: Smoking status: Reported history of juuling and/or vaping. Screenin:58 [facility] ED Fall Risk Assessment (Adult) History of falling in the last 3 months, km8 including since admission No falls in past 3 months (0 pts) Confusion or Disorientation No (0 pts) Intoxicated or Sedated No (0 pts) Impaired Gait No (0 pts) Mobility Assist Device Used No (0 pt) Altered Elimination No (0 pt) Score/Fall Risk Level 0 - 2 = Low Risk Oriented to surroundings, Maintained a safe environment, Educated pt \T\ family on fall prevention, incl call for assistance when getting out of bed, Assessed \T\ reinforced patient's understanding of fall precautions. Abuse screen: Denies threats or abuse. Denies injuries from another. Nutritional screening: No deficits noted. Tuberculosis screening: No symptoms or risk factors identified. Assessment: 21:56 General: Appears in no apparent distress. uncomfortable, Behavior is cooperative, km8 appropriate for age, anxious. Pain: Complains of pain in right upper quadrant Pain radiates to back Pain currently is 8 out of 10 on a pain scale. Is continuous. Neuro: Level of Consciousness is awake, alert, obeys commands, Oriented to person, place, time, situation. Cardiovascular: Denies chest pain, Patient's skin is warm and dry. Respiratory: Airway is patent Respiratory effort is even, unlabored, Respiratory pattern is regular, symmetrical. GI: Abdomen is non-distended, Bowel sounds present X 4 quads. Abdomen is tender to palpation in right upper quadrant Reports upper abdominal pain, nausea, vomiting. : Reports told she has 6mm kidney stone by an urgent care today. EENT: No signs and/or symptoms were reported regarding the EENT system. Derm: Skin is intact, is healthy with good turgor, Skin is dry, Skin is pink, warm \T\ dry. normal, Skin temperature is warm. Musculoskeletal: No signs and/or symptoms reported regarding the musculoskeletal system. Range of motion: intact in all extremities. 23:00 Reassessment: Patient appears in no apparent distress at this time. Patient and/or km8 family updated on plan of care and expected duration. Pain level reassessed. Patient is alert, oriented x 3, equal unlabored respirations, skin warm/dry/pink. Patient states feeling better. Patient states symptoms have improved. 09/08 00:00 Reassessment: Patient appears in no apparent distress at this time. Patient and/or km8 family updated on plan of care and expected duration. Pain level reassessed. Patient is alert, oriented x 3, equal unlabored respirations, skin warm/dry/pink. Vital Signs: 09/07 21:12 BP 130 / 90; Pulse 82; Resp 18; Temp 97.2; Pulse Ox 100% on R/A; Weight 67.13 kg; cm10 Height 5 ft. 2 in. ; Pain 8/10; 22:00 BP 140 / 86; Pulse 64; Resp 16; Pulse Ox 95% on R/A; km8 23:00 BP 161 / 87; Pulse 69; Resp 16; Pulse Ox 100% on R/A; km8 09/08 00:11 BP 150 / 85; Pulse 63; Resp 16; Pulse Ox 100% on R/A; km8 01:25 BP 149 / 94; Pulse 70; Resp 18; Temp 98.8(O); Pulse Ox 98% on R/A; Pain 0/10; jh8 09/07 21:12 Body Mass Index 27.07 (67.13 kg, 157.48 cm) cm10 09/07 21:12 Pain Scale: Adult cm10 01:25 Pain Scale: Adult jh8 Britt Coma Score: 09/07 21:58 Eye Response: spontaneous(4). Motor Response: obeys commands(6). Verbal Response: km8 oriented(5). Total: 15. ED Course: 21:04 Patient arrived in ED. mr 21:04 Catarina Hatch is Private Physician. mr 21:05 [facility]el[facility]-C [facility] kb 21:05 Reagan Devlin MD is Attending Physician. kb 21:13 Triage completed. cm10 21:14 Arm band placed on Patient placed in an exam room, on a stretcher. cm10 21:45 Kiesha Millard, LAURI is Primary Nurse. km8 21:53 CBC with Diff Sent. cm10 21:53 CMP Sent. cm10 21:53 Lipase Sent. cm10 21:53 Test, Urine Sent. cm10 21:53 Urinalysis w/ reflexes Sent. cm10 21:54 Initial lab(s) drawn, by ok, sent to lab. Urine collected: clean catch specimen, clear. cm10 Inserted saline lock: 20 gauge in right antecubital area, using aseptic technique. Blood collected. 21:58 Patient has correct armband on for positive identification. Placed in gown. Bed in low km8 position. Call light in reach. Side rails up X 1. Pulse ox on. NIBP on. Door closed. Warm blanket given. 23:10 CT Abd/Pelvis - IV Contrast Only In Process Unspecified. EDMS 09/08 00:26 Jack Chappell MD is Hospitalizing Provider. 01:21 Provided Education on: ADMIT PROCESS . [facility] 01:21 No provider procedures requiring assistance completed. Patient admitted, IV remains in [facility] place. Administered Medications: 09/07 21:53 Drug: NS 0.9% IV 1000 ml IV at 1 bolus Per protocol; 1000 mL bolus Route: IV; Rate: 1 cm10 bolus; Site: right antecubital; 23:34 Follow up: IV Status: Completed infusion; IV Intake: 1000ml 8 21:53 Drug: Famotidine IVP 20 mg IVP once; dilute with 10 mL 0.9% NaCl; give over 2 minutes cm10 Route: IVP; Site: right antecubital; 22:10 Follow up: Response: No adverse reaction 8 21:53 Drug: Ondansetron IVP 4 mg IVP once; over 2 minutes Route: IVP; Site: right antecubital;cm10 23:34 Follow up: Response: No adverse reaction; Nausea is decreased 8 21:54 Drug: morphine IVP or IV 4 mg IVP once over 4 mins Route: IVP; Infused Over: 4 mins; cm10 Site: right antecubital; 23:33 Follow up: Response: No adverse reaction; Pain is decreased 8 22:35 Drug: GI Cocktail without - (Maalox PO 30 ml, Lidocaine Mucous Membrane 2 % 15 km8 ml) PO once Route: PO; 23:33 Follow up: Response: No adverse reaction; Pain is decreased [facility] 09/08 01:24 Follow up: Response: No adverse reaction [facility] 00:21 Drug: morphine IVP or IV 4 mg IVP once over 4 mins Route: IVP; Infused Over: 4 mins; km8 Site: right antecubital; :23 Follow up: Response: No adverse reaction jh8 Medication: 09/07 21:58 VIS not applicable for this client. km8 Intake: 23:34 IV: 1000ml; Total: 1000ml. km8 Outcome: 09/08 00:26 Decision to Hospitalize by Provider. kb 01:22 Admitted to Med/surg accompanied by nurse, via wheelchair, with chart, [facility] 01:22 Condition: stable 01:22 Instructed on the need for admit, Demonstrated understanding of instructions, follow-up care, 01:45 Patient left the ED. bm8 Signatures: Dispatcher [employer] EDMS Shu Cornelius, HELPDESK MANAGER-C HELPDESK MANAGER-Ckb Mahnaz Perez, Alex Reg mr Densie Adam, RN RN cm10 Kiesha Millard, RN RN km8 Ross Hernandez, RN RN bm8 Abhi Early, RN RN jh8 Corrections: (The following items were deleted from the chart) 09/07 23:34 23:34 Response: No adverse reaction; Pain is decreased km8 km8
--- NOTE | 2023-09-09 00:27 | EDPHYS ---
Physician Documentation [facility] Name: Lavern Acosta Age: 47 yrs Sex: Female : 1975 Arrival Date: 09/08/2023 Time: 21:01 Bed 3 Private MD: Catarina Hatch ED Physician Reagan Devlin HPI: 09/08 00:44 This 47 yrs old Female presents to ER via Ambulatory with complaints of Abdominal Pain. kb 00:44 Patient is a 47-year-old female who presents for right upper quadrant pain that kb radiates to the back and nausea that started a few hours prior to arrival. States she has had a prior cholecystectomy. Reports she had a stone in the duct after the cholecystectomy and the pain was similar to what she is feeling now. Denies fever.. 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 - Infectious Disease History:: Denies. - Social history:: Smoking status: Reported history of juuling and/or vaping. ROS: 09/08 00:44 Constitutional: As per HPI kb Exam: 00:44 Constitutional: This is a well developed, well nourished patient who is awake, alert, kb and in no acute distress. Head/Face: Normocephalic, atraumatic. ENT: Moist Mucous membranes Cardiovascular: Regular rate Respiratory: Respirations even and unlabored. No increased work of breathing. Talking in full sentences Skin: Warm, dry with normal turgor. Normal color. MS/ Extremity: Pulses equal, no cyanosis. Neurovascular intact. Full, normal range of motion. Neuro: Awake and alert, GCS 15, oriented to person, place, time, and situation. Moves all extremities. Normal gait. 00:44 Abdomen/GI: Inspection: abdomen appears normal, Bowel sounds: normal, Palpation: soft, in all quadrants, moderate abdominal tenderness, in the right upper quadrant, Vital Signs: 09/07 21:12 BP 130 / 90; Pulse 82; Resp 18; Temp 97.2; Pulse Ox 100% on R/A; Weight 67.13 kg; cm10 Height 5 ft. 2 in. ; Pain 8/10; 22:00 BP 140 / 86; Pulse 64; Resp 16; Pulse Ox 95% on R/A; km8 23:00 BP 161 / 87; Pulse 69; Resp 16; Pulse Ox 100% on R/A; km8 09/08 00:11 BP 150 / 85; Pulse 63; Resp 16; Pulse Ox 100% on R/A; km8 01:25 BP 149 / 94; Pulse 70; Resp 18; Temp 98.8(O); Pulse Ox 98% on R/A; Pain 0/10; jh8 09/07 21:12 Body Mass Index 27.07 (67.13 kg, 157.48 cm) cm10 09/07 21:12 Pain Scale: Adult cm10 01:25 Pain Scale: Adult jh8 Britt Coma Score: 09/07 21:58 Eye Response: spontaneous(4). Motor Response: obeys commands(6). Verbal Response: km8 oriented(5). Total: 15. MDM: 21:05 Patient medically screened. kb 09/08 00:44 Data reviewed: vital signs, nurses notes. kb 00:45 Differential diagnosis: gastritis, gastroesophageal reflux disease, non-specific abd kb pain, pancreatitis, Ureterolithiasis. Consideration of Admission/Observation Patient was admitted/placed on observation. Escalation of care including admission/observation considered. Management of patient was discussed with the following: Hospitalist: Dr Chappell accepts pt for admission. Counseling: I had a detailed discussion with the patient and/or guardian regarding the historical points, exam findings, and any diagnostic results supporting the discharge/admit diagnosis, lab results, radiology results, the need for further work-up and treatment in the hospital. 09/07 21:10 Order name: CBC with Diff; Complete Time: 22:20 cm10 09/07 21:10 Order name: CMP; Complete Time: 22:20 cm10 09/07 21:10 Order name: Lipase; Complete Time: 22:20 cm10 09/07 21:10 Order name: Test, Urine; Complete Time: 22:13 cm10 09/07 21:10 Order name: Urinalysis w/ reflexes; Complete Time: 22:13 cm10 09/08 00:54 Order name: Liver (Hepatic) Function EDND 09/08 00:54 Order name: CBC with Automated Diff EDMS 09/08 00:54 Order name: CBC with Automated Diff EDND 09/08 00:54 Order name: Comprehensive Metabolic Panel EDND 09/08 00:54 Order name: Comprehensive Metabolic Panel EDND 09/07 21:10 Order name: CT Abd/Pelvis - IV Contrast Only cm10 09/08 00:54 Order name: Cholangiogram EDND 09/08 00:54 Order name: CONS Physician Consult EDND 09/07 21:10 Order name: IV Saline Lock; Complete Time: 21:53 cm10 09/07 21:10 Order name: Labs collected and sent; Complete Time: 21:53 cm10 Administered Medications: 09/07 21:53 Drug: NS 0.9% IV 1000 ml IV at 1 bolus Per protocol; 1000 mL bolus Route: IV; Rate: 1 cm10 bolus; Site: right antecubital; 23:34 Follow up: IV Status: Completed infusion; IV Intake: 1000ml km8 21:53 Drug: Famotidine IVP 20 mg IVP once; dilute with 10 mL 0.9% NaCl; give over 2 minutes cm10 Route: IVP; Site: right antecubital; 22:10 Follow up: Response: No adverse reaction bm8 21:53 Drug: Ondansetron IVP 4 mg IVP once; over 2 minutes Route: IVP; Site: right antecubital;cm10 23:34 Follow up: Response: No adverse reaction; Nausea is decreased km8 21:54 Drug: morphine IVP or IV 4 mg IVP once over 4 mins Route: IVP; Infused Over: 4 mins; cm10 Site: right antecubital; 23:33 Follow up: Response: No adverse reaction; Pain is decreased km8 22:35 Drug: GI Cocktail without - (Maalox PO 30 ml, Lidocaine Mucous Membrane 2 % 15 km8 ml) PO once Route: PO; 23:33 Follow up: Response: No adverse reaction; Pain is decreased 8 09/08 01:24 Follow up: Response: No adverse reaction [facility] 00:21 Drug: morphine IVP or IV 4 mg IVP once over 4 mins Route: IVP; Infused Over: 4 mins; km8 Site: right antecubital; 01:23 Follow up: Response: No adverse reaction 8 Disposition Summary: 09/09/23 00:26 Hospitalization Ordered Notes: Hospitalization Status: Observation kb Provider: Jack Chappell Location: Telemetry/MedSurg (observation) kb Condition: Stable kb Problem: new kb Symptoms: are unchanged kb Bed/Room Type: Standard kb Room Assignment: 406(09/09/23 00:56) kl Diagnosis - Upper abdominal pain, unspecified kb Forms: - Medication Reconciliation Form kb - SBAR form kb - Leadership Thank You Letter kb Signatures: Dispatcher [employer] EDMS Shu Cornelius, AGRICULTURAL ECONOMICS PROFESSOR-C AGRICULTURAL ECONOMICS PROFESSOR-CkFay Knight, RN RN kl Denise Adam RN RN cm10 Kiesha Millard RN RN km8 Abhi Early RN RN jh8 Ross Hernandez RN bm8 Corrections: (The following items were deleted from the chart) 09/07 21:10 21:10 CBC+H.LAB.BRZ ordered. EDMS EDMS 21:10 21:10 COMPREHENSIVE METABOLIC PANEL+C.LAB.BRZ ordered. EDMS EDMS 21:10 21:10 LIPASE+C.LAB.BRZ ordered. EDMS EDMS 21:10 21:10 Test, Urine+UC.LAB.BRZ ordered. EDMS EDMS 21:10 21:10 Urinalysis+U.LAB.BRZ ordered. EDMS EDMS 09/08 00:56 00:26 kb ayaan
--- NOTE | 2023-09-09 00:45 | P.HP ---
Certification for Inpatient With expected LOS: >2 Midnights Practitioner: I am a practitioner with admitting privileges, knowledge of patient current condition, hospital course, and medical plan of care. Services: Services provided to patient in accordance with Admission requirements found in Title 42 Section 412.3 of the Code of Federal Regulations Patient History Date of Service: 09/09/23 Reason for admission: Right upper quadrant pain History of Present Illness: 47-year-old female with past history of breast cancer, recurrent right kidney stones, anxiety, history of cholecystectomy by Dr. Taylor 9 years ago with subsequent ERCP finding of suprapapillary biliary stenosis after patient presented with recurrent right upper quadrant pain 6 years. Pain resolved post stent placement and dilatation of the stenosis at the time; patient developed right upper quadrant pain 6 hours ago. Pain is in the right abdominal quadrant radiating to the back. She described pain as sharp and also crampy. Pain is associated with some nausea but no vomiting. She denies any dysuria or hematuria or diarrhea. Pain is similar to her previous episode with stent was placed. She states she is also battling a right renal stone, she denies any any pain with her kidney stone but has intermittent bouts of nausea. She was seen by urology nurse eduardo yesterday at [facility] and was recommended to strain her urine. She states this new right upper quadrant pain does not typically occur with her previous bout of kidney stones. On arrival in the ED vital signs were stable afebrile, laboratory workup was unremarkable except for urinalysis suggesting UTI. CT of the abdomen is showing cholecystectomy but dilated biliary tract. Her pain and nausea symptoms remain persistent despite Maalox/Zofran/multiple doses of morphine. Patient is being admitted for intractable abdominal pain as well as possible stone in the biliary tract and for MRCP. Allergies latex Allergy (Mild, Verified 09/09/23 02:55) Rash amoxicillin Allergy (Verified 09/09/23 02:55) Itching/Hives/Rash aspirin Allergy (Verified 09/09/23 02:55) Hives/Rash cephalexin [From Keflex] Allergy (Verified 09/09/23 02:55) Unknown ciprofloxacin Allergy (Verified 09/09/23 02:55) Unknown codeine Allergy (Verified 09/09/23 02:55) Unknown ibuprofen Allergy (Verified 09/09/23 02:55) Nausea/Vomiting levofloxacin [From Levaquin] Allergy (Verified 04/24/24 02:55) Itching/Hives/Rash Penicillins Allergy (Verified 09/09/23 02:55) Unknown La Allergy (Uncoded 06/06/16 21:20) Unknown Home Medications: Codeine/APAP [Tylenol W/Codeine #3 tab] 1 tab PO Q6HP PRN 09/09/23 Hydroxyzine HCl [Atarax] 10 mg PO Q6HP PRN 09/09/23 Pantoprazole [Protonix Tab] 40 mg PO DAILY 09/09/23 Tamsulosin [Flomax] 0.4 mg PO BEDTIME 09/09/23 - Past Medical/Surgical History Diabetic: No -: Endometrosis -: GERD -: Depression/Claustrophobia -: Migraine TAVAREZ -: Anemia -: CHOLECYSTECTOMY -: BILATERAL MASTECTOMY -: ENDOMETRIOSIS SX X 2- REMOVAL OF SCARRING -: APPENDECTOMY -: Liposuction/Tummy Tuck -: Bilateral Trans-Flap Breast Reconstruction - Social History Smoking Status: Never smoker Alcohol use: Yes CD- Drugs: No Caffeine use: Yes Place of Residence: Home Review of Systems 10-point ROS is otherwise unremarkable Physical Examination - Physical Exam General: Alert, In no apparent distress, Oriented x3, Mild distress HEENT: Atraumatic, Normocephalic, PERRLA Neck: Supple, 2+ carotid pulse no bruit, JVD not distended Respiratory: Clear to auscultation bilaterally, Normal air movement, Diminished Cardiovascular: No edema, Normal pulses, Regular rate/rhythm, Normal S1 S2 Gastrointestinal: Normal bowel sounds, Soft and benign, Non-distended, No rebound, No guarding, Tenderness (RUQ ) Musculoskeletal: No clubbing, No swelling Neurological: Normal gait, Normal speech, Normal strength at 5/5 x4 extr External genitalia: No edema, No lesions - Studies Laboratory Data (last 24 hrs) 09/08/23 09/08/23 21:50 21:50 WBC 5.50 Hgb 14.5 Hct 41.5 Plt Count 248 Sodium 138 Potassium 3.9 BUN 14 Creatinine 1.00 Glucose 96 Total Bilirubin 0.8 AST 21 ALT 24 Alkaline Phosphatase 77 Lipase 33 Assessment and Plan - Problems (Diagnosis) (1) Intractable abdominal pain Onset Date: 06/03/16 Current Visit: No Status: Acute - Plan Impression Recurrent right upper quadrant abdominal painpossibly due to recurrent suprapapillary biliary stenosis History of nephrolithiasis Anxiety disorder Breast cancer status postmastectomy Recurrent right kidney stones Plan Will admit to observation Antiemetics as tolerated Gentle IV fluid GI consult for possible ERCP Will plan for MRCP in am (although last MRCP did not show any findings but ERCP was able to show the biliary stenosis as well as stent placement which had resolved her abdominal pain. Patient requesting urology evaluation of her recurrent kidney stones, will discuss with radiology to further evaluate CT for present of kidney stones if no presents on the right side, no urology needed otherwise may need follow-up with urology as outpatient - Advance Directives Does patient have a Living Will: No Does patient have a Durable POA for Healthcare: No
[2023-09-09] MEDS ORDERED: ONDANSETRON 4 MG/2 ML VIAL IV PRN (00:48)
[2023-09-09] MEDS ORDERED: MORPHINE 2 MG/ML SYR IV PRN (00:48)
[2023-09-09] MEDS ORDERED: SODIUM CHLORIDE 0.9% 10ML INJ IV PRN (00:51)
[2023-09-09 02:10] VITALS: BMI 26.9
[2023-09-09] MEDS: D5 0.9 NS 1,000 ML IV SCH (02:13)
[2023-09-09] MEDS: HYDROMORPHONE HCL 2 MG/ML inj IV PRN (02:13)
[2023-09-09 02:38] LABS: Albumin/Globulin Ratio 1.1 (1.1-1.8); Bilirubin Direct 0.5 mg/dL (0-0.2); Bilirubin Indirect, Calculated 0.5 mg/dL (0.2-0.8); Globulin 3.7 g/dL (2.3-3.5); Protein, Total 7.7 g/dL (6.4-8.2)
[2023-09-09] MEDS: PROMETHAZINE INJ 25 MG/ML AMP IV PRN (03:51)
[2023-09-09] MEDS ORDERED: NITROFURAN MACRO 100 MG CAP PO SCH (09:00)
[2023-09-09 09:10] LABS: Absolute Lymphocytes (CBC) 1.4 K/uL (0.7-4.9); Absolute Monocytes 0.4 K/uL (0.1-1.3); Absolute Neutrophil 3.2 K/uL (1.8-8.0); Basophils % 0.6 % (0-1.3); Eosinophils % 0.9 % (0-4.4); Hematocrit 40.1 % (36.0-45.0); Hemoglobin 13.8 g/dL (12.0-15.0); Lymphocytes % 27.5 % (15.3-44.8); MCHC 34.4 g/dL (32.0-36.0); MCV 89.9 fL (80-100); MPV 8.6 fL (7.6-11.3); Monocytes % 7.2 % (3.3-12.3); Neutrophils % 63.8 % (41.7-73.7); Platelets 226 thou/uL (152-406); RBC Red Blood Cell Count 4.46 M/uL (3.86-4.86); Red Cell Distribution Width 12.6 % (12.1-15.2)
[2023-09-09 09:29] LABS: Albumin 3.9 g/dL (3.4-5.0); Albumin/Globulin Ratio 1.1 (1.1-1.8); Anion Gap 5.5 mEq/L (5.0-15.0); Bilirubin Total 0.6 mg/dL (0.2-1.0); Globulin 3.5 g/dL (2.3-3.5); Magnesium 2.3 mg/dL (1.6-2.4); Potassium 4.5 mEq/L (3.5-5.1); Protein, Total 7.4 g/dL (6.4-8.2)
[2023-09-09] MEDS: PANTOPRAZOLE 40 MG INJ IVP SCH (11:00)
--- NOTE | 2023-09-09 11:02 | RAD REPORT ---
EXAM DESCRIPTION: MRICholangiogram09/09/2023 10:03 am CLINICAL HISTORY: Abdominal pain COMPARISON: September 08, 2023 CT and MRCP 2016 TECHNIQUE: Magnetic resonance cholangiogram was performed.3D MIP reconstruction performed. Additiona l axial and coronal magnetic resonance imaging of abdomen obtained. FINDINGS: A cholecystectomy has been performed Common bile duct measures 10 millimeters. A filling defect within the duct is not seen. The duct aris hany is unchanged from 2017. Mild dilatation of the intrahepatic biliary tree unchanged. A stricture i s not visualized Pancreatic duct normal caliber and is unremarkable Pancreatic duct is normal caliber IMPRESSION: Mild dilatation of the biliary tree without significant change from 2017. This may be ph ysiologic and should be correlated clinically and with appropriate labs
--- NOTE | 2023-09-09 11:19 | P.PN ---
Date of Service: 09/09/23 Subjective: Seen by urology ~1 day prior to admission at [facility] for kidney stones RUQ pain different and new compared to her usual kidney stone pain that started prior to admission after seeing her urologist RUQ pain significantly improved. Patient reports resolved overnight ~4 am. Reports 3rd kidney stone in last 5 months +nausea, no vomiting ROS: 10 point ROS as noted above, otherwise negative Physical Exam: GEN: Alert, oriented, NAD HEENT: Normal conjunctiva, sclera anicteric CV: Regular rate and rhythm, no edema Pulm: Nonlabored respirations on room air, clear bilaterally ABD: Soft, nontender, nondistended Neuro: Normal speech, normal affect vitals reviewed Problem List: Intractable abdominal pain hx of recurrent nephrolithiasis hx cholecystectomy (~9 years ago) Depression / anxiety disorder hx breast cancer s/p postmastectomy GERD Intractable abdominal pain hx of recurrent nephrolithiasis hx cholecystectomy (~9 years ago) Reports RUQ pain that started prior to admission after seeing a urologist at [facility] for kidney stones. Prior to that patient reports going [facility] Different and new pain compared to her typical kidney stone pain/symptoms Reports having ~3 kidney stones in last 5 months RUQ pain significantly improved. Patient reports resolved overnight ~[address] abdomen (09/07): Mild biliary dilatation. No definite acute process. MRCP (09/08):Mild dilatation of the biliary tree without significant change since 2017 Dr. Mckeon, GI consulted AST/ALT elevated (09/08). T. bili normal repeat LFTs pending urinalysis in ED with +LE, +RBC PRN analgesics / antiemetics continue IV protonix BID continue IV fluids with d5w 100ml/hr Depression / anxiety disorder hx breast cancer s/p postmastectomy GERD confirm home meds, restart as appropriate VTE: Code: Full Dispo: Home, 1-2 days Pending GI recs / LFTs improve
[2023-09-09] MEDS ORDERED: HYDROMORPHONE HCL 2 MG/ML inj IV PRN (11:37)
--- NOTE | 2023-09-09 14:08 | CON ---
Date of Consultation: 09/09/2023 Reason For Consultation: Right upper quadrant pain with nausea and elevated transaminases. History Of Present Illness: The patient is a 47-year-old white female with history of breast cancer, status post mastectomy; right kidney stones; anxiety disorder; status post cholecystectomy. The vimal gaspar presented to the hospital with right upper quadrant pain, mild nausea. The patient states that she had a kidney stone on or Thursday approximately 6 days prior to admission. She says it is a third kidney stone in 4 months. She is waiting for further evaluation of pain. The kidney stone issues seem to resolve by Thursday. However, she began having right upper quadrant pain, which is di fferent than the kidney stone pain she reports over the past day or so. The patient came to hospital because pain had reached to an 8/10 level. Wanted further evaluation here. Since being in the hosp ital, patient has received pain medications, antiemetics, and her pain has now resolved she reports. Of note, patient had a laparoscopic cholecystectomy approximately in 2007 with subsequent stones and the bile duct removed and biliary stricture noted in the distal common bile duct. The patient had m ultiple ERCPs with stones removed and stricture encountered. It does not appear the patient ever had biliary dilatation for the stricture, although she did have 6 ERCPs in the past. Past Medical History: 1.Significant for breast cancer, status post left breast cancer with bilateral mastectomies and chem otherapy. She did not receive radiation therapy. 2.Generalized anxiety disorder. 3.Laparoscopic cholecystectomy in 2007. 4.Multiple biliary stricture with 6 ERCPs and choledocholithiasis, status post ERCPs as well. 5.Hysterectomy with bilateral salpingo-oophorectomy. 6.Appendectomy. 7.Hypothyroidism in the past, but she does not appear to have it currently as per her report nor has she had taken medication for this. 8.Also, she has a history of endometriosis, gastric reflux disease, depression, claustrophobia, migr gerry headaches, anemia, liposuction, tummy tuck, and bilateral TRAM flap breast reconstruction. Medications: At home include Tylenol #3, Atarax, Protonix, Flomax. Allergies: AMOXICILLIN, LATEX, ASPIRIN, CEPHALEXIN, CIPROFLOXACIN, CODEINE, IBUPROFEN, LEVOFLOXACIN, PENICILLIN, LATEX. Social History: She is . No children. States she is unable to have kids. She quit tobacco 10 years ago, but she continues of vape. No alcohol. Family History: Father at 43 of diabetes, end-stage renal disease. Mother is alive and well. Review of Systems: The patient had right upper quadrant pain with mild nausea, now these resolved. She denies any fever s, chills, night sweats, emesis, melena, coffee-grounds emesis, melena, hematochezia, change in bowel habits, diarrhea, constipation, muscle aches, joint aches, backaches. She does have depression and anxiety history. No hematuria, dysuria, polydipsia, chest pain, shortness of breath, seizure, syncop e. Physical Examination: General: The patient is lying in bed, in no acute distress. Vital Signs: Temperature 97.7 degrees Fahrenheit, pulse 70, respiratory rate 17, blood pressure 136/ 63, O2 saturation 99%. She is 5 feet 2 inches, 147 pounds. BMI of 26.4 kg/sq m. General: She is well nourished, well developed, lying in bed, in no acute distress. HEENT: Normocephalic, atraumatic. Anicteric. Pupils equal, round, and reactive to light. Extraocu lar movements are intact. Oropharynx is clear/ Neck: Supple. No masses. Respirations: Clear to auscultation bilaterally. Cardiac: Regular rate and rhythm. No gallops. Abdomen: Positive bowel sounds. Soft, nontender, nondistended. No hepatosplenomegaly. No peritone al or De Los Santos sign. Extremities: No clubbing, cyanosis, or edema. 2+ pulses. Neuro: Alert and oriented x3. Grossly nonfocal. 5/5 motor sensation intact to light touch. Laboratory Data: From approximately 10 o'clock last night, white blood cell count 5.5, hemoglobin 14 .5, hematocrit 41.5, MCV of 88, platelet count 248, polys of 51%, lymphocytes 41%, monocytes 6%, eosi nophils 2%. The patient has sodium 138, potassium 3.9, chloride 103, bicarb 29, BUN of 14, creatinin e of 1.0, glucose 96, calcium 10.1. Total bilirubin 0.8, repeated 2 o'clock this morning 1.0; direct bilirubin 0.5; indirect 0.5; AST initially 21, increased to 261 from 10 o'clock to 2 o'clock in the morning. ALT from 24 to 117; alkaline phosphatase 77 to 91; total protein 7.9 to 7.7; albumin 4.1 to 4.0; globulin 3.8, down to 3.7. Lipase 33. UA: 2+ blood, 75 leukocyte esterase, greater than 50 r bc's, no white cells, no squamous epithelial cells, trace protein. Negative test. CT scan was reported to reveal intra and extrahepatic biliary dilatation possibly mild, though re port is not available yet. Impression: 1.Right upper quadrant pain with mild nausea. The patient states that she does not feel like a kidn ey pain, but more like biliary colic type pain. She does have a history of biliary stricture with bi liary stones and multiple ERCPs in the past. She has had at least 6 laparoscopic cholecystectomy 200 8 with choledocholithiasis and removal of stones. CT scan verbal report is that there is some dilata tion, though probably mild intra and extra biliary tree and patient with possible distal common bile duct, papillary bile duct stricture by reported verbal history. 2.Elevated AST, ALT, probably secondary to biliary disorder or other. Such as kidney stones. Her b ilirubin and alkaline phosphatase are normal and AST and ALT are elevated. The patient does feel muc h better this morning. She looks normal. She is in no distress. No pain. Await morning labs, whic h are coming in. 3.History of kidney stone pain on and Thursday. This is the third kidney stone in 4 months. This seems to have resolved by Thursday, approximately 3 days prior to admission. 4.History of left breast cancer, status post bilateral mastectomy, chemotherapy, no radiation. 5.Generalized anxiety disorder. 6.Depression. 7.Appendectomy. 8.Hypothyroidism in the past. 9.Hysterectomy. 10.Bilateral salpingo-oophorectomy. 11.Biliary stricture. 12.Choledocholithiasis, status post at least 6 ERCP and cholecystectomy in 2007. Recommendations: 1.Check MRCP. 2.Await morning labs, which are pending at this time. 3.Would have patient follow up, will be transferred to tertiary center if needed for advanced biliar y dilatations for probable chronic biliary stricture, but await MRCP, which is pending at this time. 4.Consider IV antibiotics if jaundice and sepsis develop with recurrence of right upper quadrant she nYamileth SOLIS/JEFF Voice ID: [id number] Report ID: [id number]
--- NOTE | 2023-09-09 14:18 | RAD REPORT ---
EXAM DESCRIPTION: CT - Abdomen Pelvis W Contrast - 09/09/2023 6:18 am CLINICAL HISTORY: ABD PAIN COMPARISON: 09/05/2023. TECHNIQUE: CT ABDOMEN PELVIS WITH IV CONTRAST on 09/08/2023 9:10 PM CDT This exam was performed according to our departmental dose-optimization program, which includes autom ated exposure control, adjustment of the mA and/or kV according to patient size and/or use of iterati ve reconstruction technique. FINDINGS: Lower lungs are clear. Abdomen: The liver is normal in appearance. There is mild to moderate intra and extrahepatic biliary dilatation with no clear etiology. Cholecystectomy was performed. The pancreas and spleen are normal in appearance. Adrenal glands are normal. Kidneys are mildly atrophic. There is a 5 mm central right renal collecting system calculus without hydronephrosis. Abdominal aorta is normal in course and caliber without aneurysm. There is no free air. There is no r etroperitoneal adenopathy. Pelvis: There is no bowel obstruction. Urinary bladder is unremarkable. There is no free fluid. Hyste rectomy was performed. Appendix is not well seen. There is evidence of possible bilateral TRAM flaps. Skeleton: There are no acute osseous findings. No suspicious bony lesions. IMPRESSION: No definite acute process. Mild biliary dilatation. Electronically signed by: Angel White MD 09/08/2023 11:24 PM CDT Due to temporary technical issues with the PACS/Fluency reporting system, reports are being signed by the in house radiologists without review as a courtesy to insure prompt reporting. The interpreting radiologist is fully responsible for the content of the report
[2023-09-09 17:49] VITALS: O2SAT 94
[2023-09-09 18:46] VITALS: BP 134/81; TEMP 97.8
--- NOTE | 2023-09-10 06:32 | P.DS ---
Admission Date: 09/09/23 Discharge Date: 09/09/23 Disposition: ROUTINE DISCHARGE Discharge Condition: GOOD Reason for Admission: Right upper quadrant pain Consultations: GI - Dr. Mckeon Brief History of Present Illness: 47yo F, PMH: breast cancer, recurrent right kidney stones, anxiety, history of cholecystectomy by Dr. Taylor 9 years ago with subsequent ERCP finding of suprapapillary biliary stenosis after patient presented with recurrent right upper quadrant pain 6 years. Pain resolved post stent placement and dilatation of the stenosis at the time Patient presented to the ED with right upper quadrant pain 6 hours ago. Pain is in the right abdominal quadrant radiating to the back. She described pain as sharp and also crampy. Pain is associated with some nausea but no vomiting. She denies any dysuria or hematuria or diarrhea. Pain is similar to her previous episode with stent was placed.She states she is also battling a right renal stone, she denies any any pain with her kidney stone but has intermittent bouts of nausea. She was seen by urology nurse eduardo yesterday at [facility] and was recommended to strain her urine. She states this new right upper quadrant pain does not typically occur with her previous bout of kidney stones.On arrival in the ED vital signs were stable afebrile, laboratory workup was unremarkable except for urinalysis suggesting UTI. CT of the abdomen is showing cholecystectomy but dilated biliary tract.Her pain and nausea symptoms remain persistent despite Maalox/Zofran/multiple doses of morphine. Patient is being admitted for intractable abdominal pain as well as possible stone in the biliary tract and for MRCP. Hospital Course: Problem List: Intractable abdominal pain hx of recurrent nephrolithiasis hx cholecystectomy (~9 years ago) Depression / anxiety disorder hx breast cancer s/p postmastectomy GERD Patient presented with R flank and and transient RUQ pain after having hematuria and symptoms similar to prior kidney stone episodes. Reported recently seen in urgent care and Urology office in the last 24-48hrs prior to presentation here. She was told she had a ~4-5mm stone in her kidney, not causing obstruction. Urology TERESA ordered CT to compare and would be calling patient in the next day or two with results/further recommendations. In the ED, labwork was rather unremarkable and vitals WNL/stable - no fever, no leukocytosis, normal renal function. CT abd/pelvis noted 5mm nephrolithiasis - in right central collecting system without any evidence of hydronephrosis. After CT was performed, she had worsening of her RUQ abdominal pain, which felt similar to when she had biliary duct obstruction in the past (underwent 3-4 biliary stents in the past). CT noted dilatation of her biliary tree. She was admitted overnight for further evaluation of her biliary dilatation and worsening RUQ pain. Dr. Mckeon was consulted, MRCP done and did not reveal any strictures, no clear stenosis, no filling defects. Biliary dilatation was similar to imaging from 2017. Her RUQ pain resolved shortly after admission. After negative MRCP results were obtained, and with her improvement of her pain, her diet was advanced. She tolerated liquid diet without issue and was discharged home. Unclear what lead to her RUQ pain and mild rise in her LFTs - possible passed stone vs more likely having a spasm of her sphincter of Oddi. Dr. Mckeon recommended follow up with GI in near future - within tertiary care center as she may need ERCP and dilatation of her biliary tree. Regarding the kidney stone - no findings to warrant urgent/emergent surgical intervention at this time - no fever, no leukocytosis, normal renal function. No evidence of sepsis / infection at this time. Advised to follow up with Urology as outpatient. no changes in medications no new medications on discharge Follow up: PCP within 1 week Urology as planned Physical Exam: GEN: Alert, oriented, NAD HEENT: Normal conjunctiva, sclera anicteric CV: Regular rate and rhythm, no edema Pulm: Nonlabored respirations on room air, clear bilaterally ABD: Soft, nontender, nondistended Neuro: Normal speech, normal affect Vital Signs/Physical Exam: Temp Pulse Resp BP Pulse Ox 97.8 F 61 14 134/81 98 09/09/23 16:00 09/09/23 16:00 09/09/23 16:00 09/09/23 16:00 09/09/23 16:00 Laboratory Data at Discharge: WBC 5.10 thou/uL (4.3-10.9) 09/09/23 08:58 Hgb 13.8 g/dL (12.0-15.0) 09/09/23 08:58 Hct 40.1 % (36.0-45.0) 09/09/23 08:58 Plt Count 226 thou/uL (152-406) 09/09/23 08:58 Sodium 139 mEq/L (136-145) 09/09/23 08:58 Potassium 4.5 mEq/L (3.5-5.1) D 09/09/23 08:58 BUN 10 mg/dL (7-18) 09/09/23 08:58 Creatinine 0.87 mg/dL (0.55-1.02) 09/09/23 08:58 Glucose 111 mg/dL (74-106) H 09/09/23 08:58 Magnesium 2.3 mg/dL (1.6-2.4) 09/09/23 08:58 Total Bilirubin 0.6 mg/dL (0.2-1.0) 09/09/23 08:58 AST 244 U/L (15-37) H 09/09/23 08:58 ALT 187 U/L (13-56) H 09/09/23 08:58 Alkaline Phosphatase 99 U/L (45-117) 09/09/23 08:58 Lipase 33 U/L (13-75) 09/08/23 21:50 Home Medications: Codeine/APAP [Tylenol W/Codeine #3 tab] 1 tab PO Q6HP PRN 09/09/23 Hydroxyzine HCl [Atarax] 10 mg PO Q6HP PRN 09/09/23 Pantoprazole [Protonix Tab] 40 mg PO DAILY 09/09/23 Tamsulosin [Flomax] 0.4 mg PO BEDTIME 09/09/23 Physician Discharge Instructions: Patient presented with R flank and and transient RUQ pain after having hematuria and symptoms similar to prior kidney stone episodes. Reported recently seen in urgent care and Urology office in the last 24-48hrs prior to presentation here. She was told she had a ~4-5mm stone in her kidney, not causing obstruction. Urology TERESA ordered CT to compare and would be calling patient in the next day or two with results/further recommendations. In the ED, labwork was rather unremarkable and vitals WNL/stable - no fever, no leukocytosis, normal renal function. CT abd/pelvis noted 5mm nephrolithiasis - in right central collecting system without any evidence of hydronephrosis. After CT was performed, she had worsening of her RUQ abdominal pain, which felt similar to when she had biliary duct obstruction in the past (underwent 3-4 biliary stents in the past). CT noted dilatation of her biliary tree. She was admitted overnight for further evaluation of her biliary dilatation and worsening RUQ pain. Dr. Mckeon was consulted, MRCP done and did not reveal any strictures, no clear stenosis, no filling defects. Biliary dilatation was similar to imaging from 2017. Her RUQ pain resolved shortly after admission. After negative MRCP results were obtained, and with her improvement of her pain, her diet was advanced. She tolerated liquid diet without issue and was discharged home. Unclear what lead to her RUQ pain and mild rise in her LFTs - possible passed stone vs more likely having a spasm of her sphincter of Oddi. Dr. Mckeon recommended follow up with GI in near future - within tertiary care center as she may need ERCP and dilatation of her biliary tree. Regarding the kidney stone - no findings to warrant urgent/emergent surgical intervention at this time - no fever, no leukocytosis, normal renal function. No evidence of sepsis / infection at this time. Advised to follow up with Urology as outpatient. no changes in medications no new medications on discharge Follow up: PCP within 1 week Urology as planned Followup: Archie Mckeon MD [ASSOCIATE-ACTIVE - CAN ADMIT] - Catarina Hatch MD [Primary Care Provider] - Time spent managing pt's care (in minutes): 45
== END 2023-09-09 18:49 | disposition home or self-care (01) ==
LOC: ER 21:01 → ERHOLD 09-09 00:48 → 4TH 09-09 01:19
PROVIDERS: ADMIT Internal Medicine; ATTEND Hospitalist
DX: R10.11 Right upper quadrant pain (principal); R11.0 Nausea; N20.0 Calculus of kidney; F41.9 Anxiety disorder, unspecified; F32.A Depression, unspecified; K21.9 Gastro-esophageal reflux disease without esophagitis; Z88.5 Allergy status to narcotic agent; Z88.8 Allergy status to other drugs, medicaments and biological substances; Z85.3 Personal history of malignant neoplasm of breast
CPT/HCPCS: 85025 ×2; 81001; 36415; 83735; 81025; 80076; 83690; 80053 ×2; 74177; 74181; Q9967; J2550; C9113; J1170; J2405; J7042 ×2; J7030; 96361; 96374; 96375; 99285; G0378